=== PATIENT | female | born 1960 | race Hispanic/Latino ===

== ENCOUNTER 2020-11-20 09:28 | Inpatient (IN) | payer BC ==
[~2020-11-20] VITALS: Ht 157.5 cm; Wt 85.4 kg
[2020-11-20] MEDS ORDERED: DEXAMETHASONE SOD PHOS 10 MG/1 ML VIAL IV ONE (09:45)
[2020-11-20 10:12] LABS: BASOPHILS % 0.2 % (0.0-1.0); HEMATOCRIT 40.2 % (34.2-44.1); HEMOGLOBIN 13.7 g/dL (12.0-16.0); LYMPHOCYTES # (AUTO) 0.7 (1.0-3.2); LYMPHOCYTES % 8.9 % (18.0-39.1); MEAN CORPUSCULAR HGB CONC 34.1 g/dL (31-35); MEAN CORPUSCULAR VOLUME 88.2 fL (81-99); MONOCYTES # (AUTO) 0.1 (0.2-0.8); NEUTROPHILS # (AUTO) 7.3 (2.1-6.9); NEUTROPHILS % 88.3 % (38.7-80.0); PLATELET COUNT 183 x10e3/uL (140-360); RED BLOOD COUNT 4.56 x10e6/uL (3.6-5.1); RED CELL DISTRIBUTION WIDTH 12.7 % (11.7-14.4)
[2020-11-20 10:39] LABS: ALBUMIN 3.3 g/dL (3.5-5.0); ALBUMIN/GLOBULIN RATIO 0.9 (0.8-2.0); ANION GAP 18.5 mmol/L (8-16); CALCIUM 7.9 mg/dL (8.4-10.2); CREATININE, SERUM 0.76 mg/dL (0.57-1.11); POTASSIUM 3.5 mmol/L (3.5-5.1)
[2020-11-20 11:28] LABS: BAND NEUTROPHILS % (MANUAL) 4 %; LYMPHOCYTES % (MANUAL) 12 % (19-48); MONOCYTES % (MANUAL) 2 % (3.4-9.0); NEUTROPHILS % (MANUAL) 82 % (40-74)
[2020-11-20 11:29] LABS: ANISOCYTOSIS SLIGHT; HYPOCHROMASIA SLIG; PLATELET ESTIMATE ADEQUATE; PLATELET MORPHOLOGY COMMENT FEW LARGE; POLYCHROMASIA FEW; RBC MORPHOLOGY COMMENT NORMAL
[2020-11-20] MEDS ORDERED: SUCCINYLCHOLINE CHLORIDE 20 MG/ML 10ML VIAL ONE (12:11)
[2020-11-20] MEDS ORDERED: MIDAZOLAM HCL 2 MG/2 ML VIAL ONE (12:11)
[2020-11-20] MEDS ORDERED: ETOMIDATE 2 MG/ML 10 ML INJ IV ONE (12:11)
[2020-11-20] MEDS ORDERED: VECURONIUM BROMIDE FOR INJ 20 MG VIAL ONE (12:11)
[2020-11-20 13:35] VITALS: BP 118/78
[2020-11-20 13:58] VITALS: BP 118/78
[2020-11-20] MEDS ORDERED: LOSARTAN-HCTZ1 EAC2 PO (14:36)
[2020-11-20] MEDS ORDERED: AMLODIPINE BESY10 MG PO (14:36)
[2020-11-20] MEDS ORDERED: SODIUM CHLORIDE 0.9% 250ML 250 ML ONE (15:06)
[2020-11-20 15:09] VITALS: BP 125/76
[2020-11-20] MEDS ORDERED: REMDESIVIR 200MG 200 MG in SODIUM CHLORIDE 0.9% 100 ML 100 ML IV ONE (15:30)
[2020-11-20] MEDS: ASCORBIC ACID 500 MG TAB PO SCH (16:15)
[2020-11-20 20:00] VITALS: BP 135/81
[2020-11-20] MEDS: ENOXAPARIN SOD INJ 40 MG/0.4 ML SYR SC SCH (20:49)
[2020-11-20] MEDS ORDERED: ZOLPIDEM TARTRATE 5 MG TAB PO PRN (21:00)
[2020-11-21] VITALS (8 sets, daily range): BP systolic 106–130; BP diastolic 69–90
[2020-11-21] MEDS: ACETAMINOPHEN 325 MG TAB PO PRN ×3 (00:13→22:56)
[2020-11-21] MEDS: ZINC SULFATE 220 MG CAP PO SCH (08:08)
[2020-11-21] MEDS: ASCORBIC ACID 500 MG TAB PO SCH ×2 (08:08→16:03)
[2020-11-21] MEDS: ENOXAPARIN SOD INJ 40 MG/0.4 ML SYR SC SCH ×2 (08:08→21:00)
[2020-11-21] MEDS: AMLODIPINE BESYLATE 10 MG TAB PO SCH (09:00)
[2020-11-21] MEDS: DEXAMETHASONE SOD PHOS 10 MG/1 ML VIAL IV SCH (10:52)
[2020-11-21] MEDS: ONDANSETRON HCL INJ 2MG/ML 2ML 2 MG/ML VIAL IV PRN ×2 (11:55→22:56)
[2020-11-21] MEDS: REMDESIVIR 100MG 100 MG in SODIUM CHLORIDE 0.9% 100 ML 100 ML IV SCH (13:14)
[2020-11-21] MEDS ORDERED: CEFTRIAXONE 1 GM in SODIUM CHLORIDE 0.9% 50ML 50 ML IV SCH (14:00)
[2020-11-21] MEDS: CEFTRIAXONE 1 GM in SODIUM CHLORIDE 0.9% 50ML 50 ML IV SCH (16:03)
[2020-11-21] MEDS: GUAIFENESIN/CODEINE 10 ML CUP PO PRN (22:56)
[2020-11-22] VITALS (7 sets, daily range): BP systolic 139–168; BP diastolic 73–92
[2020-11-22 06:13] LABS: BASOPHILS % 0.2 % (0.0-1.0); HEMATOCRIT 40.1 % (34.2-44.1); HEMOGLOBIN 13.5 g/dL (12.0-16.0); LYMPHOCYTES # (AUTO) 1.8 (1.0-3.2); LYMPHOCYTES % 18.3 % (18.0-39.1); MEAN CORPUSCULAR HEMOGLOBIN 29.9 pg (28-32); MEAN CORPUSCULAR HGB CONC 33.7 g/dL (31-35); MEAN CORPUSCULAR VOLUME 88.7 fL (81-99); MONOCYTES # (AUTO) 0.7 (0.2-0.8); MONOCYTES % 7.3 % (4.4-11.3); NEUTROPHILS % 73.2 % (38.7-80.0); PLATELET COUNT 232 x10e3/uL (140-360); RED BLOOD COUNT 4.52 x10e6/uL (3.6-5.1)
[2020-11-22 06:39] LABS: ALBUMIN/GLOBULIN RATIO 0.8 (0.8-2.0); ANION GAP 14.7 mmol/L (8-16); CALCIUM 8.1 mg/dL (8.4-10.2); CREATININE, SERUM 0.65 mg/dL (0.57-1.11); POTASSIUM 3.7 mmol/L (3.5-5.1)
[2020-11-22] MEDS: DEXAMETHASONE SOD PHOS 10 MG/1 ML VIAL IV SCH (08:51)
[2020-11-22] MEDS: ASCORBIC ACID 500 MG TAB PO SCH ×2 (08:52→17:04)
[2020-11-22] MEDS: ENOXAPARIN SOD INJ 40 MG/0.4 ML SYR SC SCH ×2 (08:52→20:19)
[2020-11-22] MEDS: ZINC SULFATE 220 MG CAP PO SCH (08:52)
[2020-11-22] MEDS: AMLODIPINE BESYLATE 10 MG TAB PO SCH (08:52)
[2020-11-22] MEDS: ACETAMINOPHEN 325 MG TAB PO PRN (14:41)
[2020-11-22] MEDS: REMDESIVIR 100MG 100 MG in SODIUM CHLORIDE 0.9% 100 ML 100 ML IV SCH (15:00)
[2020-11-22] MEDS: CEFTRIAXONE 1 GM in SODIUM CHLORIDE 0.9% 50ML 50 ML IV SCH (17:04)
[2020-11-22] MEDS: ACETAMIN/BUTALBITAL/CAFFEINE TAB PO PRN (20:19)
[2020-11-22] MEDS: GUAIFENESIN/CODEINE 10 ML CUP PO PRN (20:20)
[2020-11-23] VITALS (15 sets, daily range): BP systolic 103–144; BP diastolic 71–95
[2020-11-23] MEDS: ACETAMIN/BUTALBITAL/CAFFEINE TAB PO PRN (05:42)
[2020-11-23] MEDS: DEXAMETHASONE SOD PHOS 10 MG/1 ML VIAL IV SCH (10:55)
[2020-11-23] MEDS: AMLODIPINE BESYLATE 10 MG TAB PO SCH (10:59)
[2020-11-23] MEDS: ZINC SULFATE 220 MG CAP PO SCH (10:59)
[2020-11-23] MEDS: ASCORBIC ACID 500 MG TAB PO SCH ×2 (10:59→16:35)
[2020-11-23] MEDS: ENOXAPARIN SOD INJ 40 MG/0.4 ML SYR SC SCH ×2 (11:00→21:30)
[2020-11-23] MEDS: REMDESIVIR 100MG 100 MG in SODIUM CHLORIDE 0.9% 100 ML 100 ML IV SCH (14:44)
[2020-11-23] MEDS: CEFTRIAXONE 1 GM in SODIUM CHLORIDE 0.9% 50ML 50 ML IV SCH (16:35)
[2020-11-24] VITALS (21 sets, daily range): BP systolic 122–157; BP diastolic 59–103
[2020-11-24 05:28] LABS: BASOPHILS % 0.2 % (0.0-1.0); EOSINOPHILS % 0.1 % (0.0-6.0); HEMATOCRIT 38.8 % (34.2-44.1); HEMOGLOBIN 13.4 g/dL (12.0-16.0); LYMPHOCYTES % 15.1 % (18.0-39.1); MEAN CORPUSCULAR HGB CONC 34.5 g/dL (31-35); MEAN CORPUSCULAR VOLUME 86.8 fL (81-99); MONOCYTES # (AUTO) 1.1 (0.2-0.8); MONOCYTES % 8.5 % (4.4-11.3); NEUTROPHILS # (AUTO) 9.9 (2.1-6.9); NEUTROPHILS % 73.9 % (38.7-80.0); PLATELET COUNT 251 x10e3/uL (140-360); RED BLOOD COUNT 4.47 x10e6/uL (3.6-5.1); RED CELL DISTRIBUTION WIDTH 12.4 % (11.7-14.4)
[2020-11-24 05:51] LABS: ALBUMIN/GLOBULIN RATIO 0.8 (0.8-2.0); ANION GAP 15.4 mmol/L (8-16); CALCIUM 8.2 mg/dL (8.4-10.2); CREATININE, SERUM 0.59 mg/dL (0.57-1.11); POTASSIUM 3.4 mmol/L (3.5-5.1)
[2020-11-24] MEDS: ONDANSETRON HCL INJ 2MG/ML 2ML 2 MG/ML VIAL IV PRN (07:36)
[2020-11-24] MEDS: ENOXAPARIN SOD INJ 40 MG/0.4 ML SYR SC SCH ×2 (08:05→20:00)
[2020-11-24] MEDS: DEXAMETHASONE SOD PHOS 10 MG/1 ML VIAL IV SCH (08:05)
[2020-11-24] MEDS: ASCORBIC ACID 500 MG TAB PO SCH ×2 (08:13→18:53)
[2020-11-24] MEDS: BARICITINIB 2 MG TABLET PO SCH (08:13)
[2020-11-24] MEDS: AMLODIPINE BESYLATE 10 MG TAB PO SCH (08:13)
[2020-11-24] MEDS: ZINC SULFATE 220 MG CAP PO SCH (08:13)
[2020-11-24] MEDS: OMEPRAZOLE 20 MG CAP PO SCH (08:13)
[2020-11-24] MEDS ORDERED: POTASSIUM CHLORIDE 20 MEQ TAB CR PO ONE (11:00)
[2020-11-24] MEDS: REMDESIVIR 100MG 100 MG in SODIUM CHLORIDE 0.9% 100 ML 100 ML IV SCH (15:11)
[2020-11-25] VITALS (23 sets, daily range): BP systolic 104–152; BP diastolic 65–98
[2020-11-25 05:42] LABS: BASOPHILS % 0.2 % (0.0-1.0); HEMATOCRIT 37.4 % (34.2-44.1); HEMOGLOBIN 12.9 g/dL (12.0-16.0); LYMPHOCYTES # (AUTO) 2.4 (1.0-3.2); LYMPHOCYTES % 14.2 % (18.0-39.1); MEAN CORPUSCULAR HEMOGLOBIN 30.1 pg (28-32); MEAN CORPUSCULAR HGB CONC 34.5 g/dL (31-35); MEAN CORPUSCULAR VOLUME 87.2 fL (81-99); MONOCYTES # (AUTO) 1.1 (0.2-0.8); MONOCYTES % 6.5 % (4.4-11.3); NEUTROPHILS % 76.7 % (38.7-80.0); PLATELET COUNT 272 x10e3/uL (140-360); RED BLOOD COUNT 4.29 x10e6/uL (3.6-5.1); RED CELL DISTRIBUTION WIDTH 12.3 % (11.7-14.4)
[2020-11-25 07:13] LABS: ALBUMIN 3.2 g/dL (3.5-5.0); ANION GAP 14.8 mmol/L (8-16); CREATININE, SERUM 0.6 mg/dL (0.57-1.11); POTASSIUM 3.8 mmol/L (3.5-5.1)
[2020-11-25] MEDS: OMEPRAZOLE 20 MG CAP PO SCH (07:30)
[2020-11-25] MEDS: DEXAMETHASONE SOD PHOS 10 MG/1 ML VIAL IV SCH (09:00)
[2020-11-25] MEDS: ENOXAPARIN SOD INJ 40 MG/0.4 ML SYR SC SCH ×2 (09:00→21:00)
[2020-11-25] MEDS: ASCORBIC ACID 500 MG TAB PO SCH ×2 (09:00→16:30)
[2020-11-25] MEDS: ZINC SULFATE 220 MG CAP PO SCH (09:00)
[2020-11-25] MEDS: BARICITINIB 2 MG TABLET PO SCH (09:00)
[2020-11-25] MEDS: AMLODIPINE BESYLATE 10 MG TAB PO SCH (09:42)
[2020-11-25] MEDS: ACETAMINOPHEN 325 MG TAB PO PRN (12:15)
[2020-11-25] MEDS: GUAIFENESIN/CODEINE 10 ML CUP PO PRN (12:15)
[2020-11-25] MEDS ORDERED: GUAIFENESIN/CODEINE 5 ML LIQD PO PRN (18:15)
[2020-11-26] VITALS (24 sets, daily range): BP systolic 120–149; BP diastolic 70–111
[2020-11-26] MEDS: ACETAMIN/BUTALBITAL/CAFFEINE TAB PO PRN (00:29)
[2020-11-26 05:11] LABS: BASOPHILS # (AUTO) 0.1 (0.0-0.1); BASOPHILS % 0.2 % (0.0-1.0); EOSINOPHILS # (AUTO) 0.1 (0.0-0.4); EOSINOPHILS % 0.2 % (0.0-6.0); HEMATOCRIT 38.6 % (34.2-44.1); HEMOGLOBIN 13.4 g/dL (12.0-16.0); LYMPHOCYTES # (AUTO) 2.1 (1.0-3.2); LYMPHOCYTES % 9.7 % (18.0-39.1); MEAN CORPUSCULAR HEMOGLOBIN 29.9 pg (28-32); MEAN CORPUSCULAR HGB CONC 34.7 g/dL (31-35); MEAN CORPUSCULAR VOLUME 86.2 fL (81-99); MONOCYTES # (AUTO) 0.9 (0.2-0.8); MONOCYTES % 4.2 % (4.4-11.3); NEUTROPHILS # (AUTO) 17.6 (2.1-6.9); NEUTROPHILS % 83.3 % (38.7-80.0); PLATELET COUNT 284 x10e3/uL (140-360); RED BLOOD COUNT 4.48 x10e6/uL (3.6-5.1); RED CELL DISTRIBUTION WIDTH 12.2 % (11.7-14.4)
[2020-11-26 05:30] LABS: ALBUMIN 3.3 g/dL (3.5-5.0); ALBUMIN/GLOBULIN RATIO 1.1 (0.8-2.0); ANION GAP 12.4 mmol/L (8-16); CALCIUM 8.3 mg/dL (8.4-10.2); CREATININE, SERUM 0.58 mg/dL (0.57-1.11); POTASSIUM 3.4 mmol/L (3.5-5.1)
[2020-11-26] MEDS: OMEPRAZOLE 20 MG CAP PO SCH (08:36)
[2020-11-26] MEDS: BARICITINIB 2 MG TABLET PO SCH (08:37)
[2020-11-26] MEDS: AMLODIPINE BESYLATE 10 MG TAB PO SCH (08:37)
[2020-11-26] MEDS: ENOXAPARIN SOD INJ 40 MG/0.4 ML SYR SC SCH ×2 (08:37→20:41)
[2020-11-26] MEDS: DEXAMETHASONE SOD PHOS 10 MG/1 ML VIAL IV SCH (08:37)
[2020-11-26] MEDS: ASCORBIC ACID 500 MG TAB PO SCH ×2 (08:37→16:29)
[2020-11-26] MEDS: ZINC SULFATE 220 MG CAP PO SCH (08:37)
[2020-11-26] MEDS: ACETAMINOPHEN 325 MG TAB PO PRN (11:50)
[2020-11-26 11:53] LABS: CLARITY,URINE CLEAR (CLEAR); COLOR,URINE YELLOW (YELLOW); LEUKOCYTE ESTERASE ,URINE NEGATIVE (NEGATIVE); NITRITE,URINE NEGATIVE (NEGATIVE)
[2020-11-26 11:54] LABS: KETONES,URINE NEGATIVE (NEGATIVE); PROTEIN,URINE DIPSTICK 1+ (NEGATIVE)
[2020-11-26 12:05] LABS: BACTERIA,URINE RARE /HPF; EPITHELIAL CELLS,URINE FEW /LPF; WBC,URINE (MAN) 0-5 /HPF (0-5)
[2020-11-27] VITALS (24 sets, daily range): BP systolic 103–139; BP diastolic 51–94
[2020-11-27 05:51] LABS: BASOPHILS # (AUTO) 0.1 (0.0-0.1); BASOPHILS % 0.2 % (0.0-1.0); EOSINOPHILS # (AUTO) 0.2 (0.0-0.4); HEMOGLOBIN 13.3 g/dL (12.0-16.0); LYMPHOCYTES # (AUTO) 1.4 (1.0-3.2); LYMPHOCYTES % 6.3 % (18.0-39.1); MEAN CORPUSCULAR HEMOGLOBIN 30.1 pg (28-32); MONOCYTES # (AUTO) 0.7 (0.2-0.8); MONOCYTES % 3.3 % (4.4-11.3); NEUTROPHILS % 86.6 % (38.7-80.0); PLATELET COUNT 302 x10e3/uL (140-360); RED BLOOD COUNT 4.42 x10e6/uL (3.6-5.1); RED CELL DISTRIBUTION WIDTH 12.4 % (11.7-14.4)
[2020-11-27 06:42] LABS: ALBUMIN 3.1 g/dL (3.5-5.0); ANION GAP 16.3 mmol/L (8-16); CALCIUM 8.2 mg/dL (8.4-10.2); CREATININE, SERUM 0.55 mg/dL (0.57-1.11); POTASSIUM 3.3 mmol/L (3.5-5.1)
[2020-11-27] MEDS: OMEPRAZOLE 20 MG CAP PO SCH (08:05)
[2020-11-27] MEDS: DEXAMETHASONE SOD PHOS 10 MG/1 ML VIAL IV SCH (08:05)
[2020-11-27] MEDS: AMLODIPINE BESYLATE 10 MG TAB PO SCH (08:06)
[2020-11-27] MEDS: ENOXAPARIN SOD INJ 40 MG/0.4 ML SYR SC SCH ×2 (08:06→20:41)
[2020-11-27] MEDS: ASCORBIC ACID 500 MG TAB PO SCH ×2 (08:06→16:45)
[2020-11-27] MEDS: ZINC SULFATE 220 MG CAP PO SCH (08:06)
[2020-11-27] MEDS: BARICITINIB 2 MG TABLET PO SCH (08:06)
[2020-11-27] MEDS: ACETAMINOPHEN 325 MG TAB PO PRN (08:07)
[2020-11-27] MEDS: LIDOCAINE 4% PATCH TP SCH (10:45)
[2020-11-27] MEDS: PIPERACILLIN/TAZOBACTAM 3.375 GM in SODIUM CHLORIDE 0.9% 50ML 50 ML IV SCH ×2 (11:06→17:54)
[2020-11-28] VITALS (24 sets, daily range): BP systolic 109–155; BP diastolic 59–100
[2020-11-28] MEDS: PIPERACILLIN/TAZOBACTAM 3.375 GM in SODIUM CHLORIDE 0.9% 50ML 50 ML IV SCH ×5 (00:41→23:55)
[2020-11-28 05:53] LABS: BASOPHILS # (AUTO) 0.1 (0.0-0.1); BASOPHILS % 0.2 % (0.0-1.0); EOSINOPHILS # (AUTO) 0.3 (0.0-0.4); EOSINOPHILS % 1.2 % (0.0-6.0); HEMATOCRIT 36.6 % (34.2-44.1); HEMOGLOBIN 12.8 g/dL (12.0-16.0); LYMPHOCYTES # (AUTO) 1.2 (1.0-3.2); LYMPHOCYTES % 5.3 % (18.0-39.1); MEAN CORPUSCULAR HEMOGLOBIN 30.3 pg (28-32); MEAN CORPUSCULAR VOLUME 86.7 fL (81-99); MONOCYTES # (AUTO) 0.7 (0.2-0.8); MONOCYTES % 3.2 % (4.4-11.3); NEUTROPHILS # (AUTO) 20.5 (2.1-6.9); NEUTROPHILS % 88.4 % (38.7-80.0); PLATELET COUNT 221 x10e3/uL (140-360); RED BLOOD COUNT 4.22 x10e6/uL (3.6-5.1); RED CELL DISTRIBUTION WIDTH 12.6 % (11.7-14.4)
[2020-11-28] MEDS: ACETAMINOPHEN 325 MG TAB PO PRN (06:24)
[2020-11-28 06:38] LABS: ANION GAP 15.5 mmol/L (8-16); CALCIUM 8.1 mg/dL (8.4-10.2); CREATININE, SERUM 0.56 mg/dL (0.57-1.11); POTASSIUM 3.5 mmol/L (3.5-5.1)
[2020-11-28] MEDS: ZINC SULFATE 220 MG CAP PO SCH (08:30)
[2020-11-28] MEDS: BARICITINIB 2 MG TABLET PO SCH (08:30)
[2020-11-28] MEDS: DEXAMETHASONE SOD PHOS 10 MG/1 ML VIAL IV SCH (08:30)
[2020-11-28] MEDS: LIDOCAINE 4% PATCH TP SCH (08:30)
[2020-11-28] MEDS: ASCORBIC ACID 500 MG TAB PO SCH ×2 (08:30→17:06)
[2020-11-28] MEDS: AMLODIPINE BESYLATE 10 MG TAB PO SCH (08:30)
[2020-11-28] MEDS: ENOXAPARIN SOD INJ 40 MG/0.4 ML SYR SC SCH ×2 (08:30→21:16)
[2020-11-28] MEDS: OMEPRAZOLE 20 MG CAP PO SCH (08:30)
[2020-11-28] MEDS ORDERED: ALTEPLASE RECOMBINANT 2 MG/2 ML VIAL IV PRN (13:30)
[2020-11-28] MEDS: ACETAMIN/BUTALBITAL/CAFFEINE TAB PO PRN (23:56)
[2020-11-29] VITALS (34 sets, daily range): BP systolic 72–162; BP diastolic 43–87
[2020-11-29] MEDS: DEXMEDETOMIDINE 400MCG/NS100ML 100 ML IV PRN ×2 (00:20→02:50)
[2020-11-29] MEDS ORDERED: DEXMEDETOMIDINE HCL 4 ML ONE (02:27)
[2020-11-29] MEDS ORDERED: SODIUM CHLORIDE 0.9% 100 ML ONE (02:30)
[2020-11-29] MEDS ORDERED: MIDAZOLAM HCL 5MG/ML 10ML VIAL 100 ML IV ONE (05:39)
[2020-11-29] MEDS ORDERED: FENTANYL 2000MCG/NS 250 250 ML ONE (05:39)
[2020-11-29] MEDS ORDERED: ROCURONIUM 1250MG/NS 250 250 ML ONE (05:40)
[2020-11-29] MEDS: ROCURONIUM BROMIDE 1,250 MG in SODIUM CHLORIDE 0.9% 250ML 125 ML IV SCH (05:45)
[2020-11-29] MEDS ORDERED: LACTATED RINGER'S 500 ML INJ ONE (06:30)
[2020-11-29 06:39] LABS: BASOPHILS # (AUTO) 0.1 (0.0-0.1); BASOPHILS % 0.3 % (0.0-1.0); EOSINOPHILS # (AUTO) 0.3 (0.0-0.4); EOSINOPHILS % 1.4 % (0.0-6.0); HEMOGLOBIN 11.2 g/dL (12.0-16.0); LYMPHOCYTES # (AUTO) 0.7 (1.0-3.2); LYMPHOCYTES % 3.4 % (18.0-39.1); MEAN CORPUSCULAR HEMOGLOBIN 29.8 pg (28-32); MEAN CORPUSCULAR HGB CONC 33.9 g/dL (31-35); MEAN CORPUSCULAR VOLUME 87.8 fL (81-99); MONOCYTES # (AUTO) 0.4 (0.2-0.8); MONOCYTES % 2.2 % (4.4-11.3); NEUTROPHILS # (AUTO) 17.9 (2.1-6.9); NEUTROPHILS % 91.3 % (38.7-80.0); PLATELET COUNT 171 x10e3/uL (140-360); RED BLOOD COUNT 3.76 x10e6/uL (3.6-5.1); RED CELL DISTRIBUTION WIDTH 12.6 % (11.7-14.4)
[2020-11-29] MEDS: PIPERACILLIN/TAZOBACTAM 3.375 GM in SODIUM CHLORIDE 0.9% 50ML 50 ML IV SCH ×3 (06:55→17:22)
[2020-11-29 06:57] LABS: ALBUMIN 2.8 g/dL (3.5-5.0); ANION GAP 14.2 mmol/L (8-16); CALCIUM 7.9 mg/dL (8.4-10.2); CREATININE, SERUM 0.66 mg/dL (0.57-1.11); POTASSIUM 4.2 mmol/L (3.5-5.1)
[2020-11-29] MEDS: NOREPINEPHRINE 8 MG/D5W 250 ML 250 ML IV SCH ×2 (07:30→23:10)
[2020-11-29 08:18] LABS: ABG HCO3 26 mmol/L (22-26); ABG PCO2 38 mmHg (35-45); ABG PH 7.44 (7.35-7.45); ABG PO2 56 mmHg (80-105); ABG TCO2 27
[2020-11-29] MEDS: ENOXAPARIN SOD INJ 40 MG/0.4 ML SYR SC SCH (09:00)
[2020-11-29] MEDS: ZINC SULFATE 220 MG CAP PO SCH (10:00)
[2020-11-29] MEDS: OMEPRAZOLE 20 MG CAP PO SCH (10:00)
[2020-11-29] MEDS: ASCORBIC ACID 500 MG TAB PO SCH ×2 (10:00→17:22)
[2020-11-29] MEDS: LIDOCAINE 4% PATCH TP SCH (10:00)
[2020-11-29] MEDS: BARICITINIB 2 MG TABLET PO SCH (10:00)
[2020-11-29] MEDS: DEXAMETHASONE SOD PHOS 10 MG/1 ML VIAL IV SCH (10:00)
[2020-11-29] MEDS ORDERED: SODIUM CHLORIDE 0.9% 1000ML 1,000 ML ONE (10:48)
[2020-11-29] MEDS: FENTANYL 2000MCG/NS 250 250 ML IV SCH (13:56)
[2020-11-29] MEDS: MIDAZOLAM HCL 5MG/ML 10ML VIAL 100 ML IV PRN ×2 (13:57→22:20)
[2020-11-29] MEDS: ENOXAPARIN INJ 80 MG/0.8 ML SYR SC SCH (21:00)
[2020-11-29] MEDS ORDERED: ENOXAPARIN INJ 80 MG/0.8 ML SYR SC SCH (21:00)
[2020-11-30] VITALS (31 sets, daily range): BP systolic 86–130; BP diastolic 49–78
[2020-11-30] MEDS: FENTANYL 2000MCG/NS 250 250 ML IV SCH ×2 (00:10→09:38)
[2020-11-30] MEDS: PIPERACILLIN/TAZOBACTAM 3.375 GM in SODIUM CHLORIDE 0.9% 50ML 50 ML IV SCH ×3 (06:06)
[2020-11-30] MEDS: MIDAZOLAM HCL 5MG/ML 10ML VIAL 100 ML IV PRN ×2 (06:34→13:02)
[2020-11-30 07:33] LABS: BASOPHILS # (AUTO) 0.1 (0.0-0.1); BASOPHILS % 0.3 % (0.0-1.0); EOSINOPHILS # (AUTO) 0.1 (0.0-0.4); EOSINOPHILS % 0.3 % (0.0-6.0); HEMATOCRIT 34.3 % (34.2-44.1); HEMOGLOBIN 11.4 g/dL (12.0-16.0); LYMPHOCYTES # (AUTO) 1.2 (1.0-3.2); LYMPHOCYTES % 5.7 % (18.0-39.1); MEAN CORPUSCULAR HEMOGLOBIN 29.7 pg (28-32); MEAN CORPUSCULAR HGB CONC 33.2 g/dL (31-35); MEAN CORPUSCULAR VOLUME 89.3 fL (81-99); MONOCYTES # (AUTO) 0.6 (0.2-0.8); MONOCYTES % 2.6 % (4.4-11.3); NEUTROPHILS # (AUTO) 19.7 (2.1-6.9); NEUTROPHILS % 89.6 % (38.7-80.0); PLATELET COUNT 246 x10e3/uL (140-360); RED BLOOD COUNT 3.84 x10e6/uL (3.6-5.1); RED CELL DISTRIBUTION WIDTH 12.7 % (11.7-14.4)
[2020-11-30 08:07] LABS: ALBUMIN 2.8 g/dL (3.5-5.0); ALBUMIN/GLOBULIN RATIO 0.9 (0.8-2.0); ANION GAP 16.6 mmol/L (8-16); CALCIUM 8.5 mg/dL (8.4-10.2); CREATININE, SERUM 0.6 mg/dL (0.57-1.11); POTASSIUM 3.6 mmol/L (3.5-5.1)
[2020-11-30] MEDS: ASCORBIC ACID 500 MG TAB PO SCH ×2 (08:34→16:34)
[2020-11-30] MEDS: ENOXAPARIN INJ 80 MG/0.8 ML SYR SC SCH ×2 (08:34→22:12)
[2020-11-30] MEDS: OMEPRAZOLE 20 MG CAP PO SCH (08:34)
[2020-11-30] MEDS: DEXAMETHASONE SOD PHOS 10 MG/1 ML VIAL IV SCH (08:34)
[2020-11-30] MEDS: ZINC SULFATE 220 MG CAP PO SCH (08:34)
[2020-11-30] MEDS: LIDOCAINE 4% PATCH TP SCH (08:35)
[2020-11-30 08:46] LABS: ABG HCO3 26 mmol/L (22-26); ABG PCO2 43 mmHg (35-45); ABG PH 7.39 (7.35-7.45); ABG PO2 65 mmHg (80-105); ABG TCO2 27
[2020-11-30] MEDS: BARICITINIB 2 MG TABLET PO SCH (09:00)
[2020-11-30] MEDS: Vancomycin IV 1 GM in SODIUM CHLORIDE 0.9% 250ML 250 ML IV SCH (13:00)
[2020-11-30] MEDS: MEROPENEM 500 MG in SODIUM CHLORIDE 0.9% 50ML 50 ML IV SCH ×2 (14:09→22:12)
[2020-11-30] MEDS: ROCURONIUM BROMIDE 1,250 MG in SODIUM CHLORIDE 0.9% 250ML 125 ML IV SCH (14:10)
[2020-11-30] MEDS ORDERED: SODIUM CHLORIDE 0.9% 250ML 250 ML ONE (14:12)
[2020-11-30] MEDS ORDERED: SODIUM CHLORIDE 0.9% 50ML 50 ML ONE (22:46)
[2020-12-01] VITALS (24 sets, daily range): BP systolic 80–131; BP diastolic 49–75
[2020-12-01] MEDS: Vancomycin IV 1 GM in SODIUM CHLORIDE 0.9% 250ML 250 ML IV SCH ×2 (00:47→11:38)
[2020-12-01 05:53] LABS: BASOPHILS % 0.2 % (0.0-1.0); EOSINOPHILS # (AUTO) 0.3 (0.0-0.4); EOSINOPHILS % 1.6 % (0.0-6.0); HEMATOCRIT 29.6 % (34.2-44.1); HEMOGLOBIN 9.9 g/dL (12.0-16.0); LYMPHOCYTES # (AUTO) 1.6 (1.0-3.2); LYMPHOCYTES % 10.4 % (18.0-39.1); MEAN CORPUSCULAR HGB CONC 33.4 g/dL (31-35); MEAN CORPUSCULAR VOLUME 89.7 fL (81-99); MONOCYTES # (AUTO) 0.6 (0.2-0.8); MONOCYTES % 3.6 % (4.4-11.3); NEUTROPHILS # (AUTO) 13.1 (2.1-6.9); NEUTROPHILS % 83.1 % (38.7-80.0); PLATELET COUNT 259 x10e3/uL (140-360); RED CELL DISTRIBUTION WIDTH 12.9 % (11.7-14.4)
[2020-12-01 06:20] LABS: ALBUMIN 2.5 g/dL (3.5-5.0); ANION GAP 10.9 mmol/L (8-16); CALCIUM 7.9 mg/dL (8.4-10.2); CREATININE, SERUM 0.5 mg/dL (0.57-1.11); POTASSIUM 3.9 mmol/L (3.5-5.1)
[2020-12-01] MEDS: OMEPRAZOLE 20 MG CAP PO SCH (07:34)
[2020-12-01] MEDS: MEROPENEM 500 MG in SODIUM CHLORIDE 0.9% 50ML 50 ML IV SCH ×2 (07:34→14:07)
[2020-12-01] MEDS: ZINC SULFATE 220 MG CAP PO SCH (08:02)
[2020-12-01] MEDS: ASCORBIC ACID 500 MG TAB PO SCH ×2 (08:02→17:04)
[2020-12-01] MEDS: BARICITINIB 2 MG TABLET PO SCH (08:02)
[2020-12-01] MEDS: LIDOCAINE 4% PATCH TP SCH (08:02)
[2020-12-01] MEDS: ENOXAPARIN INJ 80 MG/0.8 ML SYR SC SCH ×2 (08:02→21:07)
[2020-12-01 12:50] LABS: ABG HCO3 26 mmol/L (22-26); ABG PCO2 39 mmHg (35-45); ABG PH 7.42 (7.35-7.45); ABG PO2 59 mmHg (80-105); ABG TCO2 27
[2020-12-01] MEDS: MIDAZOLAM HCL 5MG/ML 10ML VIAL 100 ML IV PRN ×2 (12:54→17:05)
[2020-12-01] MEDS: FENTANYL 2000MCG/NS 250 250 ML IV SCH (16:17)
[2020-12-02] VITALS (25 sets, daily range): BP systolic 90–137; BP diastolic 51–71
[2020-12-02] MEDS: Vancomycin IV 1 GM in SODIUM CHLORIDE 0.9% 250ML 250 ML IV SCH ×2 (00:01→11:19)
[2020-12-02] MEDS: MEROPENEM 500 MG in SODIUM CHLORIDE 0.9% 50ML 50 ML IV SCH ×4 (00:01→22:25)
[2020-12-02] MEDS ORDERED: SODIUM CHLORIDE 0.9% 250ML 250 ML ONE (00:22)
[2020-12-02] MEDS: MIDAZOLAM HCL 5MG/ML 10ML VIAL 100 ML IV PRN ×4 (03:15→18:49)
[2020-12-02] MEDS ORDERED: ROCURONIUM 1250MG/NS 250 250 ML ONE (05:30)
[2020-12-02] MEDS: ROCURONIUM BROMIDE 1,250 MG in SODIUM CHLORIDE 0.9% 250ML 125 ML IV SCH ×2 (06:03→06:04)
[2020-12-02] MEDS: NOREPINEPHRINE 8 MG/D5W 250 ML 250 ML IV SCH ×2 (06:04→06:38)
[2020-12-02 06:45] LABS: BASOPHILS # (AUTO) 0.1 (0.0-0.1); BASOPHILS % 0.4 % (0.0-1.0); EOSINOPHILS # (AUTO) 0.4 (0.0-0.4); EOSINOPHILS % 3.1 % (0.0-6.0); HEMATOCRIT 29.3 % (34.2-44.1); HEMOGLOBIN 9.5 g/dL (12.0-16.0); LYMPHOCYTES # (AUTO) 2.3 (1.0-3.2); LYMPHOCYTES % 16.1 % (18.0-39.1); MEAN CORPUSCULAR HEMOGLOBIN 30.4 pg (28-32); MEAN CORPUSCULAR HGB CONC 32.4 g/dL (31-35); MEAN CORPUSCULAR VOLUME 93.6 fL (81-99); MONOCYTES # (AUTO) 0.6 (0.2-0.8); MONOCYTES % 3.9 % (4.4-11.3); NEUTROPHILS # (AUTO) 10.7 (2.1-6.9); NEUTROPHILS % 75.2 % (38.7-80.0); PLATELET COUNT 280 x10e3/uL (140-360); RED BLOOD COUNT 3.13 x10e6/uL (3.6-5.1); RED CELL DISTRIBUTION WIDTH 13.6 % (11.7-14.4)
[2020-12-02 07:05] LABS: ALBUMIN 2.3 g/dL (3.5-5.0); ALBUMIN/GLOBULIN RATIO 0.9 (0.8-2.0); ANION GAP 9.6 mmol/L (8-16); CALCIUM 7.3 mg/dL (8.4-10.2); CREATININE, SERUM 0.54 mg/dL (0.57-1.11); POTASSIUM 3.6 mmol/L (3.5-5.1)
[2020-12-02] MEDS: BARICITINIB 2 MG TABLET PO SCH (08:07)
[2020-12-02] MEDS: OMEPRAZOLE 20 MG CAP PO SCH (08:07)
[2020-12-02] MEDS: ZINC SULFATE 220 MG CAP PO SCH (08:07)
[2020-12-02] MEDS: ASCORBIC ACID 500 MG TAB PO SCH ×2 (08:07→16:11)
[2020-12-02] MEDS: ENOXAPARIN INJ 80 MG/0.8 ML SYR SC SCH ×2 (08:08→22:25)
[2020-12-02] MEDS: LIDOCAINE 4% PATCH TP SCH (08:08)
[2020-12-02 08:39] LABS: ABG HCO3 24 mmol/L (22-26); ABG PCO2 38 mmHg (35-45); ABG PH 7.42 (7.35-7.45); ABG PO2 63 mmHg (80-105); ABG TCO2 26
[2020-12-02] MEDS: FUROSEMIDE INJ 10 MG/ML 4 ML VIAL IV SCH ×2 (11:19→22:25)
[2020-12-02] MEDS: ALBUMIN 25% 25GM 100ML 0.25 GM/ML BTL IV SCH ×2 (11:19→20:04)
[2020-12-02] MEDS: FENTANYL 2000MCG/NS 250 250 ML IV SCH (12:21)
[2020-12-02] MEDS: ACETAMINOPHEN 325 MG TAB PO PRN (22:26)
[2020-12-03] VITALS (25 sets, daily range): BP systolic 98–152; BP diastolic 42–89
[2020-12-03] MEDS: Vancomycin IV 1 GM in SODIUM CHLORIDE 0.9% 250ML 250 ML IV SCH ×2 (01:04→11:30)
[2020-12-03] MEDS ORDERED: ALBUMIN 25% 25GM 100ML 100 ML ONE (05:33)
[2020-12-03] MEDS: ROCURONIUM BROMIDE 1,250 MG in SODIUM CHLORIDE 0.9% 250ML 125 ML IV SCH (05:34)
[2020-12-03] MEDS: ALBUMIN 25% 25GM 100ML 0.25 GM/ML BTL IV SCH (05:34)
[2020-12-03] MEDS: ACETAMINOPHEN 325 MG TAB PO PRN ×3 (05:34→21:41)
[2020-12-03] MEDS: NOREPINEPHRINE 8 MG/D5W 250 ML 250 ML IV SCH (06:30)
[2020-12-03] MEDS: MEROPENEM 500 MG in SODIUM CHLORIDE 0.9% 50ML 50 ML IV SCH ×3 (06:51→21:41)
[2020-12-03 07:32] LABS: ABG HCO3 30 mmol/L (22-26); ABG PCO2 48 mmHg (35-45); ABG PH 7.41 (7.35-7.45); ABG PO2 66 mmHg (80-105); ABG TCO2 31
[2020-12-03] MEDS: BARICITINIB 2 MG TABLET PO SCH (08:16)
[2020-12-03] MEDS: ZINC SULFATE 220 MG CAP PO SCH (08:16)
[2020-12-03] MEDS: ASCORBIC ACID 500 MG TAB PO SCH ×2 (08:16→16:06)
[2020-12-03] MEDS: LIDOCAINE 4% PATCH TP SCH (08:16)
[2020-12-03] MEDS: OMEPRAZOLE 20 MG CAP PO SCH (08:16)
[2020-12-03] MEDS: ENOXAPARIN INJ 80 MG/0.8 ML SYR SC SCH ×2 (08:16→21:40)
[2020-12-03 08:49] LABS: ALBUMIN 2.8 g/dL (3.5-5.0); ALBUMIN/GLOBULIN RATIO 0.9 (0.8-2.0); ANION GAP 12.6 mmol/L (8-16); CREATININE, SERUM 0.51 mg/dL (0.57-1.11); POTASSIUM 3.6 mmol/L (3.5-5.1)
[2020-12-03 09:49] LABS: BASOPHILS # (AUTO) 0.1 (0.0-0.1); BASOPHILS % 0.4 % (0.0-1.0); EOSINOPHILS # (AUTO) 0.3 (0.0-0.4); EOSINOPHILS % 2.2 % (0.0-6.0); HEMATOCRIT 30.7 % (34.2-44.1); HEMOGLOBIN 9.5 g/dL (12.0-16.0); LYMPHOCYTES # (AUTO) 1.8 (1.0-3.2); LYMPHOCYTES % 15.2 % (18.0-39.1); MEAN CORPUSCULAR HEMOGLOBIN 29.7 pg (28-32); MEAN CORPUSCULAR HGB CONC 30.9 g/dL (31-35); MEAN CORPUSCULAR VOLUME 95.9 fL (81-99); MONOCYTES # (AUTO) 0.5 (0.2-0.8); MONOCYTES % 3.9 % (4.4-11.3); NEUTROPHILS # (AUTO) 9.2 (2.1-6.9); PLATELET COUNT 312 x10e3/uL (140-360); RED CELL DISTRIBUTION WIDTH 13.8 % (11.7-14.4)
[2020-12-03] MEDS: FENTANYL 2000MCG/NS 250 250 ML IV SCH ×2 (10:17→15:26)
[2020-12-03] MEDS: MIDAZOLAM HCL 5MG/ML 10ML VIAL 100 ML IV PRN ×2 (10:21→15:27)
[2020-12-03] MEDS ORDERED: Vancomycin IV 1 GM VIAL ONE (11:31)
[2020-12-03] MEDS: FLUCONAZOLE 400MG/200ML BAG 200 ML IV SCH (13:00)
[2020-12-03] MEDS: FUROSEMIDE INJ 10 MG/ML 4 ML VIAL IV SCH ×2 (15:16→21:40)
[2020-12-03] MEDS ORDERED: SODIUM CHLORIDE 0.9% 250ML 250 ML ONE (21:17)
[2020-12-03] MEDS ORDERED: ROCURONIUM 1250MG/NS 250 250 ML ONE (21:48)
[2020-12-04] VITALS (26 sets, daily range): BP systolic 87–129; BP diastolic 45–83
[2020-12-04] MEDS: Vancomycin IV 1 GM in SODIUM CHLORIDE 0.9% 250ML 250 ML IV SCH ×2 (02:00→11:53)
[2020-12-04] MEDS: ROCURONIUM BROMIDE 1,250 MG in SODIUM CHLORIDE 0.9% 250ML 125 ML IV SCH (06:09)
[2020-12-04] MEDS: MEROPENEM 500 MG in SODIUM CHLORIDE 0.9% 50ML 50 ML IV SCH ×3 (06:10→21:25)
[2020-12-04 06:51] LABS: BASOPHILS # (AUTO) 0.1 (0.0-0.1); BASOPHILS % 0.4 % (0.0-1.0); EOSINOPHILS # (AUTO) 0.2 (0.0-0.4); EOSINOPHILS % 1.5 % (0.0-6.0); HEMATOCRIT 28.2 % (34.2-44.1); HEMOGLOBIN 9.2 g/dL (12.0-16.0); LYMPHOCYTES # (AUTO) 1.4 (1.0-3.2); LYMPHOCYTES % 9.9 % (18.0-39.1); MEAN CORPUSCULAR HEMOGLOBIN 30.6 pg (28-32); MEAN CORPUSCULAR HGB CONC 32.6 g/dL (31-35); MEAN CORPUSCULAR VOLUME 93.7 fL (81-99); MONOCYTES # (AUTO) 0.4 (0.2-0.8); MONOCYTES % 2.8 % (4.4-11.3); NEUTROPHILS # (AUTO) 11.8 (2.1-6.9); NEUTROPHILS % 84.3 % (38.7-80.0); PLATELET COUNT 348 x10e3/uL (140-360); RED BLOOD COUNT 3.01 x10e6/uL (3.6-5.1); RED CELL DISTRIBUTION WIDTH 13.2 % (11.7-14.4)
[2020-12-04] MEDS: LIDOCAINE 4% PATCH TP SCH (07:12)
[2020-12-04 07:26] LABS: ALBUMIN 2.6 g/dL (3.5-5.0); ALBUMIN/GLOBULIN RATIO 0.9 (0.8-2.0); ANION GAP 12.6 mmol/L (8-16); CALCIUM 8.3 mg/dL (8.4-10.2); CREATININE, SERUM 0.44 mg/dL (0.57-1.11); POTASSIUM 3.6 mmol/L (3.5-5.1)
[2020-12-04 08:15] LABS: ABG PH 7.35 (7.35-7.45)
[2020-12-04 08:16] LABS: ABG HCO3 36 mmol/L (22-26); ABG PCO2 66 mmHg (35-45); ABG PO2 88 mmHg (80-105); ABG TCO2 38
[2020-12-04] MEDS: BARICITINIB 2 MG TABLET PO SCH (08:36)
[2020-12-04] MEDS: OMEPRAZOLE 20 MG CAP PO SCH (08:36)
[2020-12-04] MEDS: ASCORBIC ACID 500 MG TAB PO SCH ×2 (08:37→16:15)
[2020-12-04] MEDS: ENOXAPARIN INJ 80 MG/0.8 ML SYR SC SCH ×2 (08:37→20:46)
[2020-12-04] MEDS: ZINC SULFATE 220 MG CAP PO SCH (08:37)
[2020-12-04] MEDS: FLUCONAZOLE 400MG/200ML BAG 200 ML IV SCH (10:23)
[2020-12-04] MEDS: FENTANYL 2000MCG/NS 250 250 ML IV SCH ×2 (12:03→18:23)
[2020-12-04] MEDS: MIDAZOLAM HCL 5MG/ML 10ML VIAL 100 ML IV PRN ×2 (12:05→21:46)
[2020-12-04] MEDS: FUROSEMIDE INJ 10 MG/ML 4 ML VIAL IV SCH (12:12)
[2020-12-04] MEDS: ACETAMINOPHEN 325 MG TAB PO PRN (12:48)
[2020-12-04] MEDS ORDERED: ACYCLOVIR 15 GM OINT TP SCH (17:30)
[2020-12-04] MEDS: ACYCLOVIR SODIUM INJ 1,000 MG in SODIUM CHLORIDE 0.9% 250ML 250 ML IV SCH (22:41)
[2020-12-05] VITALS (27 sets, daily range): BP systolic 11–137; BP diastolic 48–83
[2020-12-05] MEDS: FUROSEMIDE INJ 10 MG/ML 4 ML VIAL IV SCH ×3 (00:09→20:20)
[2020-12-05] MEDS: FENTANYL 2000MCG/NS 250 250 ML IV SCH ×4 (00:41→16:59)
[2020-12-05] MEDS: Vancomycin IV 1 GM in SODIUM CHLORIDE 0.9% 250ML 250 ML IV SCH ×3 (01:17→23:58)
[2020-12-05] MEDS: MIDAZOLAM HCL 5MG/ML 10ML VIAL 100 ML IV PRN ×5 (03:18→22:12)
[2020-12-05] MEDS: ROCURONIUM BROMIDE 1,250 MG in SODIUM CHLORIDE 0.9% 250ML 125 ML IV SCH ×2 (05:17→12:59)
[2020-12-05] MEDS: MEROPENEM 500 MG in SODIUM CHLORIDE 0.9% 50ML 50 ML IV SCH ×3 (05:17→21:03)
[2020-12-05] MEDS: ACYCLOVIR SODIUM INJ 1,000 MG in SODIUM CHLORIDE 0.9% 250ML 250 ML IV SCH ×3 (06:20→22:01)
[2020-12-05 06:58] LABS: BASOPHILS # (AUTO) 0.1 (0.0-0.1); BASOPHILS % 0.4 % (0.0-1.0); EOSINOPHILS # (AUTO) 0.1 (0.0-0.4); EOSINOPHILS % 0.8 % (0.0-6.0); HEMATOCRIT 28.1 % (34.2-44.1); LYMPHOCYTES # (AUTO) 0.8 (1.0-3.2); LYMPHOCYTES % 5.8 % (18.0-39.1); MEAN CORPUSCULAR HEMOGLOBIN 30.4 pg (28-32); MEAN CORPUSCULAR VOLUME 94.9 fL (81-99); MONOCYTES # (AUTO) 0.4 (0.2-0.8); NEUTROPHILS # (AUTO) 12.2 (2.1-6.9); NEUTROPHILS % 89.3 % (38.7-80.0); PLATELET COUNT 410 x10e3/uL (140-360); RED BLOOD COUNT 2.96 x10e6/uL (3.6-5.1); RED CELL DISTRIBUTION WIDTH 13.1 % (11.7-14.4)
[2020-12-05] MEDS: OMEPRAZOLE 20 MG CAP PO SCH (07:30)
[2020-12-05 07:35] LABS: ALBUMIN 2.4 g/dL (3.5-5.0); ALBUMIN/GLOBULIN RATIO 0.8 (0.8-2.0); ANION GAP 12.1 mmol/L (8-16); CALCIUM 8.3 mg/dL (8.4-10.2); CREATININE, SERUM 0.48 mg/dL (0.57-1.11); POTASSIUM 4.1 mmol/L (3.5-5.1)
[2020-12-05] MEDS: ZINC SULFATE 220 MG CAP PO SCH (08:08)
[2020-12-05] MEDS: ENOXAPARIN INJ 80 MG/0.8 ML SYR SC SCH ×2 (08:08→20:20)
[2020-12-05] MEDS: ASCORBIC ACID 500 MG TAB PO SCH ×2 (08:08→16:58)
[2020-12-05] MEDS: BARICITINIB 2 MG TABLET PO SCH (08:08)
[2020-12-05 09:17] LABS: ABG HCO3 41 mmol/L (22-26); ABG PCO2 69 mmHg (35-45); ABG PH 7.38 (7.35-7.45); ABG PO2 109 mmHg (80-105); ABG TCO2 43
[2020-12-05] MEDS ORDERED: ROCURONIUM 1250MG/NS 250 250 ML ONE (09:47)
[2020-12-05] MEDS: ACYCLOVIR 15 GM OINT TP SCH ×6 (12:20→22:27)
[2020-12-05] MEDS: FLUCONAZOLE 400MG/200ML BAG 200 ML IV SCH (12:21)
[2020-12-05] MEDS: ROCURONIUM 1250MG/NS 250 250 ML IV SCH (15:25)
[2020-12-06] VITALS (30 sets, daily range): BP systolic 98–146; BP diastolic 52–79
[2020-12-06] MEDS: MIDAZOLAM HCL 5MG/ML 10ML VIAL 100 ML IV PRN ×4 (03:30→19:23)
[2020-12-06] MEDS: FENTANYL 2000MCG/NS 250 250 ML IV SCH ×3 (03:51→13:57)
[2020-12-06] MEDS ORDERED: PROPOFOL IV EMULSION 50 ML IV ONE ×3 (04:40→09:38)
[2020-12-06] MEDS: PROPOFOL IV EMULSION 10MG/ML 100 ML IV PRN ×2 (04:40→06:22)
[2020-12-06] MEDS: MEROPENEM 500 MG in SODIUM CHLORIDE 0.9% 50ML 50 ML IV SCH (05:02)
[2020-12-06] MEDS: ACYCLOVIR SODIUM INJ 1,000 MG in SODIUM CHLORIDE 0.9% 250ML 250 ML IV SCH ×3 (06:01→22:08)
[2020-12-06 06:35] LABS: BASOPHILS # (AUTO) 0.1 (0.0-0.1); BASOPHILS % 0.5 % (0.0-1.0); EOSINOPHILS # (AUTO) 0.2 (0.0-0.4); EOSINOPHILS % 1.2 % (0.0-6.0); HEMATOCRIT 31.1 % (34.2-44.1); LYMPHOCYTES # (AUTO) 0.9 (1.0-3.2); LYMPHOCYTES % 5.1 % (18.0-39.1); MEAN CORPUSCULAR HEMOGLOBIN 30.1 pg (28-32); MEAN CORPUSCULAR HGB CONC 32.2 g/dL (31-35); MEAN CORPUSCULAR VOLUME 93.7 fL (81-99); MONOCYTES # (AUTO) 0.5 (0.2-0.8); MONOCYTES % 3.2 % (4.4-11.3); NEUTROPHILS # (AUTO) 14.9 (2.1-6.9); NEUTROPHILS % 88.8 % (38.7-80.0); PLATELET COUNT 487 x10e3/uL (140-360); RED BLOOD COUNT 3.32 x10e6/uL (3.6-5.1)
[2020-12-06 07:06] LABS: ALBUMIN 2.4 g/dL (3.5-5.0); ALBUMIN/GLOBULIN RATIO 0.6 (0.8-2.0); ANION GAP 12.7 mmol/L (8-16); CALCIUM 8.4 mg/dL (8.4-10.2); CREATININE, SERUM 0.52 mg/dL (0.57-1.11); POTASSIUM 3.7 mmol/L (3.5-5.1)
[2020-12-06] MEDS: ASCORBIC ACID 500 MG TAB PO SCH ×2 (08:57→16:12)
[2020-12-06] MEDS: ACYCLOVIR 15 GM OINT TP SCH ×6 (08:57→22:08)
[2020-12-06] MEDS: ENOXAPARIN INJ 80 MG/0.8 ML SYR SC SCH ×2 (08:57→20:31)
[2020-12-06] MEDS: BARICITINIB 2 MG TABLET PO SCH (08:57)
[2020-12-06] MEDS: ZINC SULFATE 220 MG CAP PO SCH (08:57)
[2020-12-06] MEDS: OMEPRAZOLE 20 MG CAP PO SCH (09:35)
[2020-12-06] MEDS: ROCURONIUM 1250MG/NS 250 250 ML IV SCH (09:35)
[2020-12-06 09:52] LABS: ABG PH 7.37 (7.35-7.45)
[2020-12-06 09:53] LABS: ABG HCO3 38 mmol/L (22-26); ABG PCO2 65 mmHg (35-45); ABG PO2 84 mmHg (80-105); ABG TCO2 40
[2020-12-06] MEDS ORDERED: PROPOFOL IV EMULSION 100 ML IV PRN (10:00)
[2020-12-06] MEDS: FLUCONAZOLE 400MG/200ML BAG 200 ML IV SCH (10:23)
[2020-12-06] MEDS: FUROSEMIDE INJ 10 MG/ML 4 ML VIAL IV SCH ×2 (11:22→20:31)
[2020-12-06] MEDS: ALBUMIN 25% 25GM 100ML 0.25 GM/ML BTL IV SCH ×3 (11:23→21:15)
[2020-12-06] MEDS: Vancomycin IV 1 GM in SODIUM CHLORIDE 0.9% 250ML 250 ML IV SCH (11:24)
[2020-12-06] MEDS: PROPOFOL IV EMULSION 100 ML IV PRN ×2 (13:58→19:25)
[2020-12-07] VITALS (28 sets, daily range): BP systolic 101–139; BP diastolic 48–78
[2020-12-07] MEDS: MIDAZOLAM HCL 5MG/ML 10ML VIAL 100 ML IV PRN ×5 (00:23→21:18)
[2020-12-07] MEDS: PROPOFOL IV EMULSION 100 ML IV PRN ×6 (00:24→21:20)
[2020-12-07] MEDS: FENTANYL 2000MCG/NS 250 250 ML IV SCH ×4 (01:05→22:20)
[2020-12-07] MEDS ORDERED: VASOPRESSIN INJ 20 UNIT/ML VIAL ONE (03:23)
[2020-12-07] MEDS: ACYCLOVIR SODIUM INJ 1,000 MG in SODIUM CHLORIDE 0.9% 250ML 250 ML IV SCH ×3 (05:29→22:30)
[2020-12-07] MEDS: ROCURONIUM 1250MG/NS 250 250 ML IV SCH (06:12)
[2020-12-07 06:19] LABS: BASOPHILS % 0.4 % (0.0-1.0); EOSINOPHILS # (AUTO) 0.3 (0.0-0.4); EOSINOPHILS % 2.9 % (0.0-6.0); HEMATOCRIT 25.4 % (34.2-44.1); HEMOGLOBIN 8.1 g/dL (12.0-16.0); LYMPHOCYTES # (AUTO) 1.7 (1.0-3.2); LYMPHOCYTES % 17.1 % (18.0-39.1); MEAN CORPUSCULAR HEMOGLOBIN 30.5 pg (28-32); MEAN CORPUSCULAR HGB CONC 31.9 g/dL (31-35); MEAN CORPUSCULAR VOLUME 95.5 fL (81-99); MONOCYTES # (AUTO) 0.4 (0.2-0.8); MONOCYTES % 4.5 % (4.4-11.3); NEUTROPHILS # (AUTO) 7.2 (2.1-6.9); NEUTROPHILS % 74.1 % (38.7-80.0); PLATELET COUNT 406 x10e3/uL (140-360); RED BLOOD COUNT 2.66 x10e6/uL (3.6-5.1); RED CELL DISTRIBUTION WIDTH 13.2 % (11.7-14.4)
[2020-12-07 06:57] LABS: ALBUMIN 2.8 g/dL (3.5-5.0); ALBUMIN/GLOBULIN RATIO 0.9 (0.8-2.0); ANION GAP 10.1 mmol/L (8-16); CALCIUM 8.7 mg/dL (8.4-10.2); CREATININE, SERUM 0.45 mg/dL (0.57-1.11); POTASSIUM 3.1 mmol/L (3.5-5.1)
[2020-12-07] MEDS: ASCORBIC ACID 500 MG TAB PO SCH ×2 (08:25→16:52)
[2020-12-07] MEDS: ZINC SULFATE 220 MG CAP PO SCH (08:25)
[2020-12-07] MEDS: ENOXAPARIN INJ 80 MG/0.8 ML SYR SC SCH ×2 (08:25→20:25)
[2020-12-07] MEDS: OMEPRAZOLE 20 MG CAP PO SCH (08:25)
[2020-12-07] MEDS: ACYCLOVIR 15 GM OINT TP SCH ×6 (08:25→22:30)
[2020-12-07] MEDS ORDERED: PROPOFOL IV EMULSION 10MG/ML 100 ML ONE (08:39)
[2020-12-07 09:42] LABS: ABG PCO2 65 mmHg (35-45); ABG PO2 91 mmHg (80-105)
[2020-12-07 09:43] LABS: ABG HCO3 40 mmol/L (22-26); ABG TCO2 42
[2020-12-07] MEDS ORDERED: POTASSIUM CHLORIDE 20MEQ/100ML 200 ML IV ONE (12:45)
[2020-12-08] VITALS (25 sets, daily range): BP systolic 92–165; BP diastolic 51–83
[2020-12-08] MEDS ORDERED: SODIUM CHLORIDE 0.9% 250ML 250 ML ONE (00:08)
[2020-12-08] MEDS: MIDAZOLAM HCL 5MG/ML 10ML VIAL 100 ML IV PRN ×4 (01:46→17:30)
[2020-12-08] MEDS: FENTANYL 2000MCG/NS 250 250 ML IV SCH ×3 (05:50→18:55)
[2020-12-08 05:57] LABS: BASOPHILS # (AUTO) 0.1 (0.0-0.1); BASOPHILS % 0.5 % (0.0-1.0); EOSINOPHILS # (AUTO) 0.4 (0.0-0.4); EOSINOPHILS % 2.9 % (0.0-6.0); HEMATOCRIT 27.3 % (34.2-44.1); HEMOGLOBIN 8.6 g/dL (12.0-16.0); LYMPHOCYTES # (AUTO) 1.3 (1.0-3.2); LYMPHOCYTES % 10.6 % (18.0-39.1); MEAN CORPUSCULAR HEMOGLOBIN 30.3 pg (28-32); MEAN CORPUSCULAR HGB CONC 31.5 g/dL (31-35); MEAN CORPUSCULAR VOLUME 96.1 fL (81-99); MONOCYTES # (AUTO) 0.5 (0.2-0.8); MONOCYTES % 4.1 % (4.4-11.3); NEUTROPHILS # (AUTO) 9.7 (2.1-6.9); NEUTROPHILS % 80.2 % (38.7-80.0); PLATELET COUNT 476 x10e3/uL (140-360); RED BLOOD COUNT 2.84 x10e6/uL (3.6-5.1); RED CELL DISTRIBUTION WIDTH 13.4 % (11.7-14.4)
[2020-12-08] MEDS: ACYCLOVIR SODIUM INJ 1,000 MG in SODIUM CHLORIDE 0.9% 250ML 250 ML IV SCH ×3 (06:19→21:53)
[2020-12-08 06:27] LABS: ALBUMIN 2.6 g/dL (3.5-5.0); ALBUMIN/GLOBULIN RATIO 0.8 (0.8-2.0); ANION GAP 13.1 mmol/L (8-16); CALCIUM 8.8 mg/dL (8.4-10.2); CREATININE, SERUM 0.54 mg/dL (0.57-1.11); POTASSIUM 4.1 mmol/L (3.5-5.1)
[2020-12-08] MEDS ORDERED: PROPOFOL IV EMULSION 10MG/ML 200 ML ONE (07:29)
[2020-12-08] MEDS: PROPOFOL IV EMULSION 100 ML IV PRN ×2 (07:35→16:08)
[2020-12-08] MEDS ORDERED: VECURONIUM BROMIDE FOR INJ 20 MG VIAL ONE (08:01)
[2020-12-08] MEDS: FUROSEMIDE INJ 10 MG/ML 4 ML VIAL IV SCH ×2 (08:49→21:53)
[2020-12-08] MEDS: ALBUMIN 25% 25GM 100ML 0.25 GM/ML BTL IV SCH ×2 (08:49→14:53)
[2020-12-08] MEDS: ZINC SULFATE 220 MG CAP PO SCH (09:45)
[2020-12-08] MEDS: ENOXAPARIN INJ 80 MG/0.8 ML SYR SC SCH ×2 (09:45→21:53)
[2020-12-08] MEDS: ASCORBIC ACID 500 MG TAB PO SCH ×2 (09:45→17:18)
[2020-12-08] MEDS: ACYCLOVIR 15 GM OINT TP SCH ×5 (09:45→20:27)
[2020-12-08 09:49] LABS: ABG HCO3 35 mmol/L (22-26); ABG PCO2 64 mmHg (35-45); ABG PH 7.35 (7.35-7.45); ABG PO2 63 mmHg (80-105); ABG TCO2 37
[2020-12-08] MEDS: OMEPRAZOLE 20 MG CAP PO SCH ×2 (12:47→13:00)
[2020-12-08] MEDS ORDERED: ALBUMIN 25% 12.5GM 50ML 100 ML IV ONE (15:01)
[2020-12-08] MEDS: ROCURONIUM 1250MG/NS 250 250 ML IV SCH (15:39)
[2020-12-08] MEDS ORDERED: ALBUMIN 25% 12.5GM 0.25 GM/ML BTL IV ONE (22:00)
[2020-12-09] VITALS (31 sets, daily range): BP systolic 90–175; BP diastolic 60–84
[2020-12-09] MEDS: ACYCLOVIR 15 GM OINT TP SCH ×6 (00:24→20:30)
[2020-12-09] MEDS: ACYCLOVIR SODIUM INJ 1,000 MG in SODIUM CHLORIDE 0.9% 250ML 250 ML IV SCH ×3 (06:08→21:23)
[2020-12-09 06:20] LABS: BASOPHILS % 0.3 % (0.0-1.0); EOSINOPHILS # (AUTO) 0.4 (0.0-0.4); EOSINOPHILS % 3.4 % (0.0-6.0); HEMATOCRIT 24.1 % (34.2-44.1); HEMOGLOBIN 7.5 g/dL (12.0-16.0); LYMPHOCYTES # (AUTO) 0.8 (1.0-3.2); LYMPHOCYTES % 6.9 % (18.0-39.1); MEAN CORPUSCULAR HGB CONC 31.1 g/dL (31-35); MEAN CORPUSCULAR VOLUME 96.4 fL (81-99); MONOCYTES # (AUTO) 0.4 (0.2-0.8); MONOCYTES % 3.4 % (4.4-11.3); NEUTROPHILS # (AUTO) 10.1 (2.1-6.9); NEUTROPHILS % 84.6 % (38.7-80.0); PLATELET COUNT 444 x10e3/uL (140-360); RED CELL DISTRIBUTION WIDTH 13.2 % (11.7-14.4)
[2020-12-09 06:55] LABS: ALBUMIN 3.4 g/dL (3.5-5.0); ALBUMIN/GLOBULIN RATIO 1.2 (0.8-2.0); ANION GAP 12.9 mmol/L (8-16); CALCIUM 9.5 mg/dL (8.4-10.2); CREATININE, SERUM 0.52 mg/dL (0.57-1.11); POTASSIUM 3.9 mmol/L (3.5-5.1)
[2020-12-09 08:41] LABS: ABG PCO2 72 mmHg (35-45); ABG PH 7.33 (7.35-7.45); ABG PO2 99 mmHg (80-105)
[2020-12-09 08:42] LABS: ABG HCO3 38 mmol/L (22-26); ABG TCO2 40
[2020-12-09] MEDS: FENTANYL 2000MCG/NS 250 250 ML IV SCH (08:54)
[2020-12-09] MEDS: MIDAZOLAM HCL 5MG/ML 10ML VIAL 100 ML IV PRN ×3 (08:54→18:16)
[2020-12-09] MEDS: ASCORBIC ACID 500 MG TAB PO SCH ×2 (09:00→17:50)
[2020-12-09] MEDS ORDERED: FENTANYL 2000MCG/NS 250 250 ML IV SCH (09:15)
[2020-12-09] MEDS: ZINC SULFATE 220 MG CAP PO SCH (09:59)
[2020-12-09] MEDS: OMEPRAZOLE 20 MG CAP PO SCH (10:09)
[2020-12-09] MEDS: FUROSEMIDE INJ 100 MG in SODIUM CHLORIDE 0.9% 100 ML 90 ML IV SCH (12:22)
[2020-12-09] MEDS: PROPOFOL IV EMULSION 100 ML IV PRN (18:15)
[2020-12-09] MEDS: ENOXAPARIN INJ 80 MG/0.8 ML SYR SC SCH (21:23)
[2020-12-10] VITALS (24 sets, daily range): BP systolic 83–136; BP diastolic 51–70
[2020-12-10] MEDS: ACYCLOVIR 15 GM OINT TP SCH ×6 (02:01→20:53)
[2020-12-10] MEDS: ACYCLOVIR SODIUM INJ 1,000 MG in SODIUM CHLORIDE 0.9% 250ML 250 ML IV SCH ×3 (05:48→22:07)
[2020-12-10] MEDS: FUROSEMIDE INJ 100 MG in SODIUM CHLORIDE 0.9% 100 ML 90 ML IV SCH (05:48)
[2020-12-10 06:10] LABS: BASOPHILS # (AUTO) 0.1 (0.0-0.1); BASOPHILS % 0.4 % (0.0-1.0); EOSINOPHILS # (AUTO) 0.5 (0.0-0.4); EOSINOPHILS % 3.8 % (0.0-6.0); HEMATOCRIT 25.8 % (34.2-44.1); HEMOGLOBIN 7.9 g/dL (12.0-16.0); LYMPHOCYTES # (AUTO) 0.8 (1.0-3.2); LYMPHOCYTES % 6.3 % (18.0-39.1); MEAN CORPUSCULAR HEMOGLOBIN 29.8 pg (28-32); MEAN CORPUSCULAR HGB CONC 30.6 g/dL (31-35); MEAN CORPUSCULAR VOLUME 97.4 fL (81-99); MONOCYTES # (AUTO) 0.5 (0.2-0.8); MONOCYTES % 4.4 % (4.4-11.3); NEUTROPHILS # (AUTO) 10.2 (2.1-6.9); NEUTROPHILS % 83.6 % (38.7-80.0); PLATELET COUNT 463 x10e3/uL (140-360); RED BLOOD COUNT 2.65 x10e6/uL (3.6-5.1); RED CELL DISTRIBUTION WIDTH 13.3 % (11.7-14.4)
[2020-12-10 06:45] LABS: ALBUMIN 2.9 g/dL (3.5-5.0); ALBUMIN/GLOBULIN RATIO 0.9 (0.8-2.0); ANION GAP 14.3 mmol/L (8-16); CREATININE, SERUM 0.48 mg/dL (0.57-1.11); POTASSIUM 3.3 mmol/L (3.5-5.1)
[2020-12-10] MEDS: PROPOFOL IV EMULSION 100 ML IV PRN ×3 (09:08→19:00)
[2020-12-10] MEDS: MIDAZOLAM HCL 5MG/ML 10ML VIAL 100 ML IV PRN ×3 (09:17→17:28)
[2020-12-10 09:20] LABS: ABG HCO3 42 mmol/L (22-26); ABG PCO2 67 mmHg (35-45); ABG PO2 93 mmHg (80-105); ABG TCO2 44
[2020-12-10] MEDS: OMEPRAZOLE 20 MG CAP PO SCH (10:56)
[2020-12-10] MEDS: ENOXAPARIN INJ 80 MG/0.8 ML SYR SC SCH ×2 (10:57→22:06)
[2020-12-10] MEDS: ZINC SULFATE 220 MG CAP PO SCH (10:57)
[2020-12-10] MEDS: ASCORBIC ACID 500 MG TAB PO SCH ×2 (10:57→17:27)
[2020-12-10] MEDS ORDERED: POTASSIUM CHLORIDE 20MEQ/100ML 200 ML IV ONE (11:30)
[2020-12-10] MEDS: FENTANYL 2000MCG/NS 250 250 ML IV PRN ×2 (12:43→17:27)
[2020-12-11] VITALS (24 sets, daily range): BP systolic 90–131; BP diastolic 52–86
[2020-12-11] MEDS: PROPOFOL IV EMULSION 100 ML IV PRN ×2 (00:04→09:38)
[2020-12-11] MEDS: ACYCLOVIR 15 GM OINT TP SCH ×7 (01:16→23:30)
[2020-12-11] MEDS: FUROSEMIDE INJ 100 MG in SODIUM CHLORIDE 0.9% 100 ML 90 ML IV SCH ×2 (03:14→23:30)
[2020-12-11 06:21] LABS: BASOPHILS # (AUTO) 0.1 (0.0-0.1); BASOPHILS % 0.5 % (0.0-1.0); EOSINOPHILS # (AUTO) 0.7 (0.0-0.4); EOSINOPHILS % 7.5 % (0.0-6.0); HEMATOCRIT 25.2 % (34.2-44.1); HEMOGLOBIN 7.8 g/dL (12.0-16.0); LYMPHOCYTES # (AUTO) 0.9 (1.0-3.2); LYMPHOCYTES % 9.1 % (18.0-39.1); MEAN CORPUSCULAR HEMOGLOBIN 29.9 pg (28-32); MEAN CORPUSCULAR VOLUME 96.6 fL (81-99); MONOCYTES # (AUTO) 0.6 (0.2-0.8); MONOCYTES % 5.7 % (4.4-11.3); NEUTROPHILS # (AUTO) 7.4 (2.1-6.9); NEUTROPHILS % 75.2 % (38.7-80.0); PLATELET COUNT 499 x10e3/uL (140-360); RED BLOOD COUNT 2.61 x10e6/uL (3.6-5.1); RED CELL DISTRIBUTION WIDTH 13.4 % (11.7-14.4)
[2020-12-11] MEDS: ACYCLOVIR SODIUM INJ 1,000 MG in SODIUM CHLORIDE 0.9% 250ML 250 ML IV SCH ×2 (06:48→13:06)
[2020-12-11 07:01] LABS: ALBUMIN 2.4 g/dL (3.5-5.0); ALBUMIN/GLOBULIN RATIO 0.7 (0.8-2.0); ANION GAP 14.3 mmol/L (8-16); CALCIUM 8.6 mg/dL (8.4-10.2); CREATININE, SERUM 0.48 mg/dL (0.57-1.11); POTASSIUM 3.3 mmol/L (3.5-5.1)
[2020-12-11] MEDS: OMEPRAZOLE 20 MG CAP PO SCH (07:30)
[2020-12-11] MEDS: ZINC SULFATE 220 MG CAP PO SCH (08:24)
[2020-12-11] MEDS: ASCORBIC ACID 500 MG TAB PO SCH ×2 (08:24→17:22)
[2020-12-11] MEDS: ENOXAPARIN INJ 80 MG/0.8 ML SYR SC SCH ×2 (08:24→22:39)
[2020-12-11 08:28] LABS: ABG HCO3 44 mmol/L (22-26); ABG PCO2 66 mmHg (35-45); ABG PH 7.43 (7.35-7.45); ABG PO2 67 mmHg (80-105); ABG TCO2 46
[2020-12-11] MEDS ORDERED: POTASSIUM CHLORIDE 20MEQ/100ML 200 ML IV ONE (09:00)
[2020-12-11] MEDS: MIDAZOLAM HCL 5MG/ML 10ML VIAL 100 ML IV PRN ×2 (09:39→17:23)
[2020-12-11] MEDS: FENTANYL 2000MCG/NS 250 250 ML IV PRN ×2 (09:39→17:22)
[2020-12-11] MEDS: PROPOFOL IV EMULSION 10MG/ML 100 ML IV PRN (17:23)
[2020-12-12] VITALS (30 sets, daily range): BP systolic 90–133; BP diastolic 46–75
[2020-12-12 05:59] LABS: BASOPHILS # (AUTO) 0.1 (0.0-0.1); BASOPHILS % 0.6 % (0.0-1.0); EOSINOPHILS % 8.7 % (0.0-6.0); HEMATOCRIT 26.8 % (34.2-44.1); HEMOGLOBIN 8.7 g/dL (12.0-16.0); LYMPHOCYTES # (AUTO) 1.1 (1.0-3.2); LYMPHOCYTES % 9.5 % (18.0-39.1); MEAN CORPUSCULAR HEMOGLOBIN 31.2 pg (28-32); MEAN CORPUSCULAR HGB CONC 32.5 g/dL (31-35); MEAN CORPUSCULAR VOLUME 96.1 fL (81-99); MONOCYTES # (AUTO) 0.8 (0.2-0.8); MONOCYTES % 7.4 % (4.4-11.3); NEUTROPHILS # (AUTO) 7.8 (2.1-6.9); NEUTROPHILS % 70.6 % (38.7-80.0); PLATELET COUNT 498 x10e3/uL (140-360); RED BLOOD COUNT 2.79 x10e6/uL (3.6-5.1); RED CELL DISTRIBUTION WIDTH 13.9 % (11.7-14.4)
[2020-12-12 06:24] LABS: ALBUMIN 2.4 g/dL (3.5-5.0); ALBUMIN/GLOBULIN RATIO 0.6 (0.8-2.0); ANION GAP 15.5 mmol/L (8-16); CALCIUM 9.2 mg/dL (8.4-10.2); CREATININE, SERUM 0.51 mg/dL (0.57-1.11); POTASSIUM 3.5 mmol/L (3.5-5.1)
[2020-12-12] MEDS: FENTANYL 2000MCG/NS 250 250 ML IV PRN ×2 (07:29→18:33)
[2020-12-12] MEDS: ACYCLOVIR 15 GM OINT TP SCH ×2 (07:30→11:30)
[2020-12-12] MEDS: MIDAZOLAM HCL 5MG/ML 10ML VIAL 100 ML IV PRN ×2 (07:30→17:01)
[2020-12-12] MEDS: OMEPRAZOLE 20 MG CAP PO SCH (07:30)
[2020-12-12 08:45] LABS: ABG HCO3 39 mmol/L (22-26); ABG PCO2 51 mmHg (35-45); ABG PH 7.49 (7.35-7.45); ABG PO2 79 mmHg (80-105); ABG TCO2 40
[2020-12-12] MEDS: DOCUSATE SODIUM LIQD 100 MG/10 ML UDC NG SCH ×2 (08:50→17:02)
[2020-12-12] MEDS: ENOXAPARIN INJ 80 MG/0.8 ML SYR SC SCH ×2 (08:50→21:05)
[2020-12-12] MEDS: ZINC SULFATE 220 MG CAP PO SCH (08:50)
[2020-12-12] MEDS: ASCORBIC ACID 500 MG TAB PO SCH ×2 (08:50→17:02)
[2020-12-12] MEDS: LACTULOSE SYRUP 20 GM/30 ML UDC PO PRN (08:51)
[2020-12-12] MEDS: PROPOFOL IV EMULSION 10MG/ML 100 ML IV PRN (11:30)
[2020-12-12] MEDS: FUROSEMIDE INJ 100 MG in SODIUM CHLORIDE 0.9% 100 ML 90 ML IV SCH ×3 (12:35→23:40)
[2020-12-12] MEDS ORDERED: ALBUMIN 25% 25GM 100ML 0.25 GM/ML BTL IV SCH (12:45)
[2020-12-12] MEDS: ALBUMIN 25% 12.5GM 50ML 100 ML IV SCH ×2 (13:37→21:05)
[2020-12-12 17:48] LABS: ABG PH 7.36 (7.35-7.45)
[2020-12-12 17:49] LABS: ABG HCO3 43 mmol/L (22-26); ABG PCO2 76 mmHg (35-45); ABG PO2 67 mmHg (80-105); ABG TCO2 45
[2020-12-12] MEDS: ROCURONIUM 1250MG/NS 250 250 ML IV PRN (19:06)
[2020-12-13] VITALS (23 sets, daily range): BP systolic 84–149; BP diastolic 45–69
[2020-12-13] MEDS: ALBUMIN 25% 12.5GM 50ML 100 ML IV SCH (06:11)
[2020-12-13 07:01] LABS: BASOPHILS # (AUTO) 0.1 (0.0-0.1); BASOPHILS % 0.5 % (0.0-1.0); EOSINOPHILS % 8.6 % (0.0-6.0); HEMOGLOBIN 7.6 g/dL (12.0-16.0); LYMPHOCYTES % 8.1 % (18.0-39.1); MEAN CORPUSCULAR HEMOGLOBIN 29.7 pg (28-32); MEAN CORPUSCULAR HGB CONC 30.4 g/dL (31-35); MEAN CORPUSCULAR VOLUME 97.7 fL (81-99); MONOCYTES # (AUTO) 0.8 (0.2-0.8); MONOCYTES % 7.1 % (4.4-11.3); NEUTROPHILS # (AUTO) 8.5 (2.1-6.9); NEUTROPHILS % 72.5 % (38.7-80.0); PLATELET COUNT 540 x10e3/uL (140-360); RED BLOOD COUNT 2.56 x10e6/uL (3.6-5.1); RED CELL DISTRIBUTION WIDTH 13.9 % (11.7-14.4)
[2020-12-13] MEDS: OMEPRAZOLE 20 MG CAP PO SCH (07:30)
[2020-12-13] MEDS: FENTANYL 2000MCG/NS 250 250 ML IV PRN ×2 (07:31→13:14)
[2020-12-13] MEDS: MIDAZOLAM HCL 5MG/ML 10ML VIAL 100 ML IV PRN ×3 (07:32→17:49)
[2020-12-13 07:37] LABS: ALBUMIN 3.1 g/dL (3.5-5.0); ALBUMIN/GLOBULIN RATIO 0.9 (0.8-2.0); ANION GAP 15.2 mmol/L (8-16); CALCIUM 9.1 mg/dL (8.4-10.2); CREATININE, SERUM 0.57 mg/dL (0.57-1.11); POTASSIUM 3.2 mmol/L (3.5-5.1)
[2020-12-13] MEDS: PROPOFOL IV EMULSION 10MG/ML 100 ML IV PRN ×2 (08:56→14:17)
[2020-12-13] MEDS: ENOXAPARIN INJ 80 MG/0.8 ML SYR SC SCH ×2 (08:59→22:05)
[2020-12-13] MEDS: ASCORBIC ACID 500 MG TAB PO SCH ×2 (09:00→17:12)
[2020-12-13] MEDS: ZINC SULFATE 220 MG CAP PO SCH (09:00)
[2020-12-13] MEDS: DOCUSATE SODIUM LIQD 100 MG/10 ML UDC NG SCH ×2 (09:00→17:12)
[2020-12-13 09:54] LABS: ABG PH 7.39 (7.35-7.45)
[2020-12-13 09:55] LABS: ABG HCO3 43 mmol/L (22-26); ABG PCO2 71 mmHg (35-45); ABG PO2 72 mmHg (80-105); ABG TCO2 46
[2020-12-13] MEDS ORDERED: POTASSIUM CHLORIDE 20MEQ/100ML 200 ML IV ONE (12:45)
[2020-12-13] MEDS ORDERED: ACETAZOLAMIDE SODIUM 500 MG/VIAL IV ONE (13:00)
[2020-12-13] MEDS: FUROSEMIDE INJ 100 MG in SODIUM CHLORIDE 0.9% 100 ML 90 ML IV SCH ×2 (14:25→17:46)
[2020-12-13] MEDS: ROCURONIUM 1250MG/NS 250 250 ML IV PRN (17:49)
[2020-12-14] VITALS (22 sets, daily range): BP systolic 79–174; BP diastolic 44–76
[2020-12-14] MEDS: FUROSEMIDE INJ 100 MG in SODIUM CHLORIDE 0.9% 100 ML 90 ML IV SCH ×2 (05:47→15:38)
[2020-12-14 06:57] LABS: BASOPHILS # (AUTO) 0.1 (0.0-0.1); BASOPHILS % 0.5 % (0.0-1.0); EOSINOPHILS # (AUTO) 0.5 (0.0-0.4); EOSINOPHILS % 3.7 % (0.0-6.0); HEMATOCRIT 23.5 % (34.2-44.1); HEMOGLOBIN 7.6 g/dL (12.0-16.0); LYMPHOCYTES # (AUTO) 0.8 (1.0-3.2); LYMPHOCYTES % 5.8 % (18.0-39.1); MEAN CORPUSCULAR HEMOGLOBIN 32.8 pg (28-32); MEAN CORPUSCULAR HGB CONC 32.3 g/dL (31-35); MEAN CORPUSCULAR VOLUME 101.3 fL (81-99); MONOCYTES # (AUTO) 1.2 (0.2-0.8); MONOCYTES % 8.6 % (4.4-11.3); NEUTROPHILS % 78.7 % (38.7-80.0); PLATELET COUNT 494 x10e3/uL (140-360); RED BLOOD COUNT 2.32 x10e6/uL (3.6-5.1); RED CELL DISTRIBUTION WIDTH 14.7 % (11.7-14.4)
[2020-12-14] MEDS: OMEPRAZOLE 20 MG CAP PO SCH (07:30)
[2020-12-14 07:39] LABS: ALBUMIN/GLOBULIN RATIO 0.8 (0.8-2.0); ANION GAP 13.9 mmol/L (8-16); CALCIUM 9.1 mg/dL (8.4-10.2); CREATININE, SERUM 0.62 mg/dL (0.57-1.11)
[2020-12-14] MEDS: ZINC SULFATE 220 MG CAP PO SCH (08:06)
[2020-12-14] MEDS: DOCUSATE SODIUM LIQD 100 MG/10 ML UDC NG SCH ×2 (08:06→15:38)
[2020-12-14] MEDS: ASCORBIC ACID 500 MG TAB PO SCH ×2 (08:06→15:38)
[2020-12-14] MEDS: ENOXAPARIN INJ 80 MG/0.8 ML SYR SC SCH ×2 (08:06→21:34)
[2020-12-14 08:15] LABS: POTASSIUM 2.9 mmol/L (3.5-5.1)
[2020-12-14] MEDS: MIDAZOLAM HCL 5MG/ML 10ML VIAL 100 ML IV PRN (10:06)
[2020-12-14] MEDS: PROPOFOL IV EMULSION 10MG/ML 100 ML IV PRN (10:07)
[2020-12-14 10:13] LABS: ABG PH 7.33 (7.35-7.45)
[2020-12-14 10:14] LABS: ABG HCO3 41 mmol/L (22-26); ABG PCO2 78 mmHg (35-45); ABG PO2 70 mmHg (80-105); ABG TCO2 44
[2020-12-14] MEDS ORDERED: POTASSIUM CHLORIDE 20MEQ/100ML 200 ML IV ONE ×2 (11:30→19:00)
[2020-12-14] MEDS: FENTANYL 2000MCG/NS 250 250 ML IV PRN (18:42)
[2020-12-14] MEDS ORDERED: AMIODARONE 900MG 500 ML IV ONE (19:30)
[2020-12-14] MEDS ORDERED: AMIODARONE HCL 150 MG/100 ML BAG IV ONE (19:30)
[2020-12-15] VITALS (25 sets, daily range): BP systolic 76–166; BP diastolic 44–88
[2020-12-15] MEDS: FUROSEMIDE INJ 100 MG in SODIUM CHLORIDE 0.9% 100 ML 90 ML IV SCH ×3 (04:05→22:24)
[2020-12-15 06:05] LABS: BASOPHILS # (AUTO) 0.1 (0.0-0.1); BASOPHILS % 0.5 % (0.0-1.0); EOSINOPHILS # (AUTO) 0.4 (0.0-0.4); EOSINOPHILS % 3.2 % (0.0-6.0); HEMATOCRIT 24.3 % (34.2-44.1); HEMOGLOBIN 7.2 g/dL (12.0-16.0); LYMPHOCYTES # (AUTO) 0.7 (1.0-3.2); LYMPHOCYTES % 5.6 % (18.0-39.1); MEAN CORPUSCULAR HEMOGLOBIN 29.3 pg (28-32); MEAN CORPUSCULAR HGB CONC 29.6 g/dL (31-35); MEAN CORPUSCULAR VOLUME 98.8 fL (81-99); MONOCYTES # (AUTO) 1.1 (0.2-0.8); MONOCYTES % 8.3 % (4.4-11.3); NEUTROPHILS # (AUTO) 10.4 (2.1-6.9); NEUTROPHILS % 79.9 % (38.7-80.0); PLATELET COUNT 466 x10e3/uL (140-360); RED BLOOD COUNT 2.46 x10e6/uL (3.6-5.1); RED CELL DISTRIBUTION WIDTH 14.4 % (11.7-14.4)
[2020-12-15 06:19] LABS: ALBUMIN 2.8 g/dL (3.5-5.0); ALBUMIN/GLOBULIN RATIO 0.8 (0.8-2.0); ANION GAP 11.7 mmol/L (8-16); CALCIUM 8.8 mg/dL (8.4-10.2); CREATININE, SERUM 0.61 mg/dL (0.57-1.11); POTASSIUM 3.7 mmol/L (3.5-5.1)
[2020-12-15] MEDS: OMEPRAZOLE 20 MG CAP PO SCH (07:30)
[2020-12-15] MEDS: MIDAZOLAM HCL 5MG/ML 10ML VIAL 100 ML IV PRN ×3 (07:45→22:07)
[2020-12-15] MEDS: FENTANYL 2000MCG/NS 250 250 ML IV PRN ×3 (07:45→22:08)
[2020-12-15] MEDS: ASCORBIC ACID 500 MG TAB PO SCH ×2 (09:00→17:05)
[2020-12-15] MEDS: ENOXAPARIN INJ 80 MG/0.8 ML SYR SC SCH ×2 (09:00→20:20)
[2020-12-15] MEDS: DOCUSATE SODIUM LIQD 100 MG/10 ML UDC NG SCH ×2 (09:00→17:05)
[2020-12-15] MEDS: LACTULOSE SYRUP 20 GM/30 ML UDC PO PRN (09:00)
[2020-12-15 10:03] LABS: ABG PH 7.31 (7.35-7.45)
[2020-12-15 10:04] LABS: ABG HCO3 39 mmol/L (22-26); ABG PCO2 78 mmHg (35-45); ABG PO2 64 mmHg (80-105); ABG TCO2 42
[2020-12-15] MEDS: ZINC SULFATE 220 MG CAP PO SCH (10:19)
[2020-12-15] MEDS ORDERED: ACETAZOLAMIDE SODIUM 500 MG/VIAL IV ONE (11:00)
[2020-12-15] MEDS: PROPOFOL IV EMULSION 10MG/ML 100 ML IV PRN ×3 (11:27→23:20)
[2020-12-15] MEDS ORDERED: MINERAL OIL 132 ML BTL PR ONE (17:00)
[2020-12-15] MEDS: PIPERACILLIN/TAZOBACTAM 3.375 GM in SODIUM CHLORIDE 0.9% 50ML 50 ML IV SCH (17:05)
[2020-12-15] MEDS: BISACODYL 10 MG SUPP PR PRN (17:06)
[2020-12-15 17:30] LABS: CLARITY,URINE CLOUDY (CLEAR); COLOR,URINE YELLOW (YELLOW); LEUKOCYTE ESTERASE ,URINE MODERATE (NEGATIVE); NITRITE,URINE NEGATIVE (NEGATIVE); PROTEIN,URINE DIPSTICK NEGATIVE (NEGATIVE)
[2020-12-15 17:31] LABS: KETONES,URINE NEGATIVE (NEGATIVE)
[2020-12-15 17:32] LABS: AMORPHOUS SEDIMENT,URINE MODERATE (FEW); BACTERIA,URINE MODERATE /HPF; EPITHELIAL CELLS,URINE RARE /LPF; RBC,URINE 0-5 /HPF (0-5); URINE UROBILINOGEN 1 mg/dL (0.2 - 1)
[2020-12-15] MEDS ORDERED: ACETAMINOPHEN 1000 MG/100 ML IV ONE (17:50)
[2020-12-16] VITALS (24 sets, daily range): BP systolic 85–146; BP diastolic 53–73
[2020-12-16] MEDS: LACTULOSE SYRUP 20 GM/30 ML UDC PO PRN ×2 (03:11→09:00)
[2020-12-16] MEDS: MIDAZOLAM HCL 5MG/ML 10ML VIAL 100 ML IV PRN ×3 (03:33→23:35)
[2020-12-16] MEDS: FENTANYL 2000MCG/NS 250 250 ML IV PRN (05:16)
[2020-12-16] MEDS: PROPOFOL IV EMULSION 10MG/ML 100 ML IV PRN ×3 (06:08→23:34)
[2020-12-16] MEDS: PIPERACILLIN/TAZOBACTAM 3.375 GM in SODIUM CHLORIDE 0.9% 50ML 50 ML IV SCH ×3 (06:29)
[2020-12-16] MEDS: FUROSEMIDE INJ 100 MG in SODIUM CHLORIDE 0.9% 100 ML 90 ML IV SCH ×2 (06:31→23:33)
[2020-12-16 06:53] LABS: BASOPHILS # (AUTO) 0.1 (0.0-0.1); BASOPHILS % 0.4 % (0.0-1.0); EOSINOPHILS # (AUTO) 0.1 (0.0-0.4); EOSINOPHILS % 0.2 % (0.0-6.0); HEMATOCRIT 26.9 % (34.2-44.1); HEMOGLOBIN 7.9 g/dL (12.0-16.0); LYMPHOCYTES # (AUTO) 0.9 (1.0-3.2); LYMPHOCYTES % 2.9 % (18.0-39.1); MEAN CORPUSCULAR HEMOGLOBIN 29.9 pg (28-32); MEAN CORPUSCULAR HGB CONC 29.4 g/dL (31-35); MEAN CORPUSCULAR VOLUME 101.9 fL (81-99); MONOCYTES # (AUTO) 1.4 (0.2-0.8); MONOCYTES % 4.6 % (4.4-11.3); NEUTROPHILS # (AUTO) 26.5 (2.1-6.9); NEUTROPHILS % 89.8 % (38.7-80.0); PLATELET COUNT 427 x10e3/uL (140-360); RED BLOOD COUNT 2.64 x10e6/uL (3.6-5.1); RED CELL DISTRIBUTION WIDTH 14.7 % (11.7-14.4)
[2020-12-16 07:10] LABS: ALBUMIN 2.6 g/dL (3.5-5.0); ALBUMIN/GLOBULIN RATIO 0.7 (0.8-2.0); CALCIUM 8.7 mg/dL (8.4-10.2); CREATININE, SERUM 0.74 mg/dL (0.57-1.11)
[2020-12-16] MEDS: OMEPRAZOLE 20 MG CAP PO SCH (07:30)
[2020-12-16] MEDS: DOCUSATE SODIUM LIQD 100 MG/10 ML UDC NG SCH ×2 (09:00→17:06)
[2020-12-16] MEDS: ASCORBIC ACID 500 MG TAB PO SCH ×2 (09:00→17:06)
[2020-12-16 09:51] LABS: ABG PH 7.26 (7.35-7.45)
[2020-12-16 09:52] LABS: ABG HCO3 40 mmol/L (22-26); ABG PCO2 90 mmHg (35-45); ABG PO2 61 mmHg (80-105); ABG TCO2 43
[2020-12-16] MEDS ORDERED: POTASSIUM CHLORIDE 20MEQ/100ML 200 ML IV ONE (10:00)
[2020-12-16] MEDS: ZINC SULFATE 220 MG CAP PO SCH (12:08)
[2020-12-16] MEDS: ENOXAPARIN INJ 80 MG/0.8 ML SYR SC SCH ×2 (12:08→20:43)
[2020-12-16] MEDS: Vancomycin IV 1 GM in SODIUM CHLORIDE 0.9% 250ML 250 ML IV SCH ×2 (12:19→21:32)
[2020-12-16] MEDS: FLUCONAZOLE 200 MG/100 ML 100 ML IV SCH (12:19)
[2020-12-16 12:37] LABS: BAND NEUTROPHILS % (MANUAL) 15 %; EOSINOPHILS % (MANUAL) 1 % (0-7); LYMPHOCYTES % (MANUAL) 2 % (19-48); MONOCYTES % (MANUAL) 6 % (3.4-9.0); NEUTROPHILS % (MANUAL) 76 % (40-74); NUCLEATED RED BLOOD CELLS 1; PLATELET ESTIMATE ADEQUATE
[2020-12-16 12:38] LABS: HYPOCHROMASIA SLIGHT; PLATELET MORPHOLOGY COMMENT NORMAL; RBC MORPHOLOGY COMMENT NORMAL
[2020-12-16] MEDS: ALBUMIN 25% 25GM 100ML 0.25 GM/ML BTL IV SCH ×3 (14:05→21:32)
[2020-12-16] MEDS: MEROPENEM 1 GM in SODIUM CHLORIDE 0.9% 100 ML IV SCH ×2 (14:05→21:32)
[2020-12-16] MEDS: METOCLOPRAMIDE HCL 10 MG/2ML VIAL IV SCH (21:32)
[2020-12-17] VITALS (25 sets, daily range): BP systolic 90–140; BP diastolic 48–71
[2020-12-17] MEDS: FENTANYL 2000MCG/NS 250 250 ML IV PRN ×4 (01:50→22:30)
[2020-12-17] MEDS: MIDAZOLAM HCL 5MG/ML 10ML VIAL 100 ML IV PRN ×4 (04:45→21:25)
[2020-12-17] MEDS: FUROSEMIDE INJ 100 MG in SODIUM CHLORIDE 0.9% 100 ML 90 ML IV SCH ×2 (05:21→16:54)
[2020-12-17] MEDS: METOCLOPRAMIDE HCL 10 MG/2ML VIAL IV SCH ×3 (05:21→22:01)
[2020-12-17] MEDS: MEROPENEM 1 GM in SODIUM CHLORIDE 0.9% 100 ML IV SCH ×3 (05:21→22:01)
[2020-12-17] MEDS: BISACODYL 10 MG SUPP PR PRN (05:26)
[2020-12-17 06:14] LABS: BASOPHILS # (AUTO) 0.1 (0.0-0.1); BASOPHILS % 0.7 % (0.0-1.0); EOSINOPHILS # (AUTO) 0.7 (0.0-0.4); EOSINOPHILS % 4.2 % (0.0-6.0); HEMATOCRIT 25.3 % (34.2-44.1); HEMOGLOBIN 7.4 g/dL (12.0-16.0); LYMPHOCYTES # (AUTO) 1.1 (1.0-3.2); LYMPHOCYTES % 6.7 % (18.0-39.1); MEAN CORPUSCULAR HEMOGLOBIN 29.8 pg (28-32); MEAN CORPUSCULAR HGB CONC 29.2 g/dL (31-35); MONOCYTES # (AUTO) 1.1 (0.2-0.8); MONOCYTES % 6.6 % (4.4-11.3); NEUTROPHILS # (AUTO) 13.4 (2.1-6.9); NEUTROPHILS % 79.7 % (38.7-80.0); PLATELET COUNT 374 x10e3/uL (140-360); RED BLOOD COUNT 2.48 x10e6/uL (3.6-5.1)
[2020-12-17] MEDS: PROPOFOL IV EMULSION 10MG/ML 100 ML IV PRN ×2 (06:17→19:45)
[2020-12-17 06:50] LABS: ALBUMIN 3.1 g/dL (3.5-5.0); ANION GAP 12.1 mmol/L (8-16); CALCIUM 8.7 mg/dL (8.4-10.2); CREATININE, SERUM 0.6 mg/dL (0.57-1.11); POTASSIUM 3.1 mmol/L (3.5-5.1)
[2020-12-17] MEDS: OMEPRAZOLE 20 MG CAP PO SCH (07:30)
[2020-12-17 08:31] LABS: ABG HCO3 43 mmol/L (22-26); ABG PCO2 90 mmHg (35-45); ABG PH 7.29 (7.35-7.45); ABG PO2 66 mmHg (80-105); ABG TCO2 45
[2020-12-17] MEDS: Vancomycin IV 1 GM in SODIUM CHLORIDE 0.9% 250ML 250 ML IV SCH ×2 (09:51→22:01)
[2020-12-17] MEDS: DOCUSATE SODIUM LIQD 100 MG/10 ML UDC NG SCH ×2 (09:51→16:54)
[2020-12-17] MEDS: ENOXAPARIN INJ 80 MG/0.8 ML SYR SC SCH ×2 (09:51→22:01)
[2020-12-17] MEDS: ZINC SULFATE 220 MG CAP PO SCH (09:51)
[2020-12-17] MEDS: FLUCONAZOLE 200 MG/100 ML 100 ML IV SCH (09:51)
[2020-12-17] MEDS: ASCORBIC ACID 500 MG TAB PO SCH ×2 (09:51→16:54)
[2020-12-17] MEDS ORDERED: POTASSIUM CHLORIDE 20MEQ/100ML 200 ML IV ONE (13:15)
[2020-12-18] VITALS (26 sets, daily range): BP systolic 92–145; BP diastolic 56–71
[2020-12-18] MEDS: ROCURONIUM 1250MG/NS 250 250 ML IV PRN (02:17)
[2020-12-18] MEDS: PROPOFOL IV EMULSION 10MG/ML 100 ML IV PRN ×3 (02:18→21:59)
[2020-12-18] MEDS: MIDAZOLAM HCL 5MG/ML 10ML VIAL 100 ML IV PRN ×5 (02:19→22:00)
[2020-12-18] MEDS: FUROSEMIDE INJ 100 MG in SODIUM CHLORIDE 0.9% 100 ML 90 ML IV SCH ×3 (03:01→16:34)
[2020-12-18 06:06] LABS: BASOPHILS # (AUTO) 0.1 (0.0-0.1); BASOPHILS % 0.7 % (0.0-1.0); EOSINOPHILS # (AUTO) 0.5 (0.0-0.4); EOSINOPHILS % 2.6 % (0.0-6.0); HEMATOCRIT 25.4 % (34.2-44.1); HEMOGLOBIN 7.8 g/dL (12.0-16.0); LYMPHOCYTES # (AUTO) 1.9 (1.0-3.2); LYMPHOCYTES % 10.4 % (18.0-39.1); MEAN CORPUSCULAR HGB CONC 30.7 g/dL (31-35); MEAN CORPUSCULAR VOLUME 104.1 fL (81-99); MONOCYTES # (AUTO) 1.4 (0.2-0.8); MONOCYTES % 7.6 % (4.4-11.3); NEUTROPHILS # (AUTO) 13.3 (2.1-6.9); NEUTROPHILS % 74.1 % (38.7-80.0); PLATELET COUNT 422 x10e3/uL (140-360); RED BLOOD COUNT 2.44 x10e6/uL (3.6-5.1); RED CELL DISTRIBUTION WIDTH 15.9 % (11.7-14.4)
[2020-12-18] MEDS: MEROPENEM 1 GM in SODIUM CHLORIDE 0.9% 100 ML IV SCH ×3 (06:12→20:42)
[2020-12-18] MEDS: METOCLOPRAMIDE HCL 10 MG/2ML VIAL IV SCH ×3 (06:12→21:58)
[2020-12-18 06:41] LABS: ALBUMIN/GLOBULIN RATIO 0.8 (0.8-2.0); ANION GAP 11.7 mmol/L (8-16); CALCIUM 8.3 mg/dL (8.4-10.2); CREATININE, SERUM 0.54 mg/dL (0.57-1.11)
[2020-12-18 06:44] LABS: POTASSIUM 2.7 mmol/L (3.5-5.1)
[2020-12-18] MEDS: FENTANYL 2000MCG/NS 250 250 ML IV PRN ×2 (07:13→11:04)
[2020-12-18] MEDS ORDERED: POTASSIUM CHLORIDE 20MEQ/100ML 200 ML IV ONE ×2 (08:30→18:00)
[2020-12-18 09:09] LABS: ABG PCO2 95 mmHg (35-45); ABG PH 7.32 (7.35-7.45)
[2020-12-18 09:10] LABS: ABG HCO3 49 mmol/L (22-26); ABG PO2 56 mmHg (80-105); ABG TCO2 > 50
[2020-12-18] MEDS: ZINC SULFATE 220 MG CAP PO SCH (09:32)
[2020-12-18] MEDS: ASCORBIC ACID 500 MG TAB PO SCH ×2 (09:32→16:36)
[2020-12-18] MEDS: DOCUSATE SODIUM LIQD 100 MG/10 ML UDC NG SCH ×2 (09:32→16:36)
[2020-12-18] MEDS: FLUCONAZOLE 200 MG/100 ML 100 ML IV SCH (09:32)
[2020-12-18] MEDS: ENOXAPARIN INJ 80 MG/0.8 ML SYR SC SCH ×2 (09:32→20:41)
[2020-12-18] MEDS: Vancomycin IV 1 GM in SODIUM CHLORIDE 0.9% 250ML 250 ML IV SCH ×2 (10:45→21:58)
[2020-12-18] MEDS: PANTOPRAZOLE SODIUM 40 MG SUSPDR.PKT PO SCH (11:03)
[2020-12-18] MEDS: CHLOROTHIAZIDE SODIUM 500 MG VIAL IV SCH (20:40)
[2020-12-19] VITALS (25 sets, daily range): BP systolic 92–158; BP diastolic 54–71
[2020-12-19] MEDS: FENTANYL 2000MCG/NS 250 250 ML IV PRN ×4 (01:35→21:20)
[2020-12-19] MEDS: MIDAZOLAM HCL 5MG/ML 10ML VIAL 100 ML IV PRN ×4 (02:37→23:18)
[2020-12-19] MEDS: PROPOFOL IV EMULSION 10MG/ML 100 ML IV PRN ×2 (04:30→15:07)
[2020-12-19] MEDS ORDERED: POTASSIUM CHLORIDE 20MEQ/100ML 200 ML IV ONE ×2 (06:00→10:30)
[2020-12-19] MEDS: MEROPENEM 1 GM in SODIUM CHLORIDE 0.9% 100 ML IV SCH ×3 (06:14→21:18)
[2020-12-19] MEDS: METOCLOPRAMIDE HCL 10 MG/2ML VIAL IV SCH ×3 (06:14→21:18)
[2020-12-19 06:31] LABS: BASOPHILS # (AUTO) 0.2 (0.0-0.1); BASOPHILS % 1.1 % (0.0-1.0); EOSINOPHILS % 4.9 % (0.0-6.0); HEMOGLOBIN 8.3 g/dL (12.0-16.0); LYMPHOCYTES # (AUTO) 2.5 (1.0-3.2); LYMPHOCYTES % 12.2 % (18.0-39.1); MEAN CORPUSCULAR HEMOGLOBIN 29.2 pg (28-32); MEAN CORPUSCULAR HGB CONC 28.6 g/dL (31-35); MEAN CORPUSCULAR VOLUME 102.1 fL (81-99); MONOCYTES # (AUTO) 1.3 (0.2-0.8); MONOCYTES % 6.5 % (4.4-11.3); NEUTROPHILS # (AUTO) 13.7 (2.1-6.9); NEUTROPHILS % 67.7 % (38.7-80.0); PLATELET COUNT 437 x10e3/uL (140-360); RED BLOOD COUNT 2.84 x10e6/uL (3.6-5.1); RED CELL DISTRIBUTION WIDTH 15.1 % (11.7-14.4)
[2020-12-19] MEDS: ROCURONIUM 1250MG/NS 250 250 ML IV PRN (06:55)
[2020-12-19 07:10] LABS: ALBUMIN 2.9 g/dL (3.5-5.0); ALBUMIN/GLOBULIN RATIO 0.8 (0.8-2.0); CALCIUM 9.4 mg/dL (8.4-10.2); CREATININE, SERUM 0.51 mg/dL (0.57-1.11); POTASSIUM 3.3 mmol/L (3.5-5.1)
[2020-12-19 07:54] LABS: ANION GAP 13.3 mmol/L (8-16)
[2020-12-19] MEDS ORDERED: POTASSIUM CHLORIDE 20MEQ/15ML UDC NG SCH (09:00)
[2020-12-19 09:27] LABS: ABG HCO3 56 mmol/L (22-26); ABG PCO2 90 mmHg (35-45); ABG PO2 57 mmHg (80-105); ABG TCO2 > 50
[2020-12-19] MEDS ORDERED: ACETAZOLAMIDE SODIUM 500 MG/VIAL IV ONE (10:15)
[2020-12-19] MEDS: KCL 20 MEQ PACKET/ ORAL SOLN NG SCH (10:47)
[2020-12-19] MEDS: ZINC SULFATE 220 MG CAP PO SCH (10:47)
[2020-12-19] MEDS: DOCUSATE SODIUM LIQD 100 MG/10 ML UDC NG SCH ×2 (10:47→17:07)
[2020-12-19] MEDS: PANTOPRAZOLE SODIUM 40 MG SUSPDR.PKT PO SCH (10:47)
[2020-12-19] MEDS: ASCORBIC ACID 500 MG TAB PO SCH ×2 (10:47→17:07)
[2020-12-19] MEDS: Vancomycin IV 1 GM in SODIUM CHLORIDE 0.9% 250ML 250 ML IV SCH ×2 (10:48→21:18)
[2020-12-19] MEDS: FLUCONAZOLE 200 MG/100 ML 100 ML IV SCH (10:48)
[2020-12-19] MEDS: CHLOROTHIAZIDE SODIUM 500 MG VIAL IV SCH (12:00)
[2020-12-19] MEDS: FUROSEMIDE INJ 100 MG in SODIUM CHLORIDE 0.9% 100 ML 90 ML IV SCH (15:06)
[2020-12-19] MEDS: LACTULOSE SYRUP 20 GM/30 ML UDC PO PRN (15:09)
[2020-12-19] MEDS: ENOXAPARIN INJ 80 MG/0.8 ML SYR SC SCH (20:46)
[2020-12-20] VITALS (24 sets, daily range): BP systolic 89–128; BP diastolic 52–66
[2020-12-20] MEDS: PROPOFOL IV EMULSION 10MG/ML 100 ML IV PRN ×5 (00:59→20:43)
[2020-12-20] MEDS: FENTANYL 2000MCG/NS 250 250 ML IV PRN ×3 (04:00→17:16)
[2020-12-20] MEDS: MIDAZOLAM HCL 5MG/ML 10ML VIAL 100 ML IV PRN ×5 (04:36→20:14)
[2020-12-20] MEDS: MEROPENEM 1 GM in SODIUM CHLORIDE 0.9% 100 ML IV SCH ×3 (05:31→21:42)
[2020-12-20] MEDS: METOCLOPRAMIDE HCL 10 MG/2ML VIAL IV SCH ×3 (05:31→21:42)
[2020-12-20 05:46] LABS: BASOPHILS # (AUTO) 0.2 (0.0-0.1); BASOPHILS % 0.9 % (0.0-1.0); EOSINOPHILS # (AUTO) 1.1 (0.0-0.4); EOSINOPHILS % 5.7 % (0.0-6.0); HEMATOCRIT 27.5 % (34.2-44.1); LYMPHOCYTES % 10.1 % (18.0-39.1); MEAN CORPUSCULAR HEMOGLOBIN 29.6 pg (28-32); MEAN CORPUSCULAR HGB CONC 29.1 g/dL (31-35); MEAN CORPUSCULAR VOLUME 101.9 fL (81-99); MONOCYTES % 5.3 % (4.4-11.3); NEUTROPHILS # (AUTO) 13.4 (2.1-6.9); NEUTROPHILS % 68.8 % (38.7-80.0); PLATELET COUNT 404 x10e3/uL (140-360); RED CELL DISTRIBUTION WIDTH 15.6 % (11.7-14.4)
[2020-12-20 06:08] LABS: ALBUMIN 2.4 g/dL (3.5-5.0); ALBUMIN/GLOBULIN RATIO 0.6 (0.8-2.0); ANION GAP 13.2 mmol/L (8-16); CALCIUM 8.5 mg/dL (8.4-10.2); CREATININE, SERUM 0.5 mg/dL (0.57-1.11); POTASSIUM 3.2 mmol/L (3.5-5.1)
[2020-12-20 09:08] LABS: ABG HCO3 51 mmol/L (22-26); ABG PCO2 90 mmHg (35-45); ABG PH 7.36 (7.35-7.45); ABG PO2 56 mmHg (80-105); ABG TCO2 > 50
[2020-12-20] MEDS: CHLOROTHIAZIDE SODIUM 500 MG VIAL IV SCH (09:11)
[2020-12-20] MEDS: FUROSEMIDE INJ 100 MG in SODIUM CHLORIDE 0.9% 100 ML 90 ML IV SCH (10:56)
[2020-12-20] MEDS: ASCORBIC ACID 500 MG TAB PO SCH (10:56)
[2020-12-20] MEDS: PANTOPRAZOLE SODIUM 40 MG SUSPDR.PKT PO SCH (10:56)
[2020-12-20] MEDS: ZINC SULFATE 220 MG CAP PO SCH (10:56)
[2020-12-20] MEDS: ENOXAPARIN INJ 80 MG/0.8 ML SYR SC SCH ×2 (10:56→20:42)
[2020-12-20] MEDS: KCL 20 MEQ PACKET/ ORAL SOLN NG SCH (10:56)
[2020-12-20] MEDS: DOCUSATE SODIUM LIQD 100 MG/10 ML UDC NG SCH ×2 (10:56→17:15)
[2020-12-20] MEDS: FLUCONAZOLE 200 MG/100 ML 100 ML IV SCH (11:32)
[2020-12-20] MEDS: Vancomycin IV 1 GM in SODIUM CHLORIDE 0.9% 250ML 250 ML IV SCH ×2 (11:32→22:41)
[2020-12-21] VITALS (26 sets, daily range): BP systolic 76–133; BP diastolic 44–89
[2020-12-21] MEDS: FENTANYL 2000MCG/NS 250 250 ML IV PRN ×3 (00:12→21:00)
[2020-12-21] MEDS: MIDAZOLAM HCL 5MG/ML 10ML VIAL 100 ML IV PRN ×3 (00:13→23:02)
[2020-12-21] MEDS: FUROSEMIDE INJ 100 MG in SODIUM CHLORIDE 0.9% 100 ML 90 ML IV SCH ×2 (00:41→08:00)
[2020-12-21] MEDS: PROPOFOL IV EMULSION 10MG/ML 100 ML IV PRN ×3 (01:20→21:09)
[2020-12-21] MEDS: METOCLOPRAMIDE HCL 10 MG/2ML VIAL IV SCH ×3 (05:09→21:09)
[2020-12-21] MEDS: MEROPENEM 1 GM in SODIUM CHLORIDE 0.9% 100 ML IV SCH ×3 (05:09→21:09)
[2020-12-21 06:02] LABS: BASOPHILS # (AUTO) 0.1 (0.0-0.1); BASOPHILS % 0.7 % (0.0-1.0); EOSINOPHILS # (AUTO) 1.1 (0.0-0.4); EOSINOPHILS % 6.1 % (0.0-6.0); HEMATOCRIT 28.2 % (34.2-44.1); HEMOGLOBIN 8.2 g/dL (12.0-16.0); LYMPHOCYTES # (AUTO) 2.4 (1.0-3.2); LYMPHOCYTES % 13.4 % (18.0-39.1); MEAN CORPUSCULAR HEMOGLOBIN 29.3 pg (28-32); MEAN CORPUSCULAR HGB CONC 29.1 g/dL (31-35); MEAN CORPUSCULAR VOLUME 100.7 fL (81-99); MONOCYTES # (AUTO) 1.1 (0.2-0.8); NEUTROPHILS # (AUTO) 11.5 (2.1-6.9); NEUTROPHILS % 64.5 % (38.7-80.0); PLATELET COUNT 428 x10e3/uL (140-360); RED CELL DISTRIBUTION WIDTH 15.4 % (11.7-14.4)
[2020-12-21 06:23] LABS: ALBUMIN 2.2 g/dL (3.5-5.0); ALBUMIN/GLOBULIN RATIO 0.6 (0.8-2.0); ANION GAP 12.2 mmol/L (8-16); CALCIUM 8.4 mg/dL (8.4-10.2); CREATININE, SERUM 0.45 mg/dL (0.57-1.11); POTASSIUM 3.2 mmol/L (3.5-5.1)
[2020-12-21 07:30] LABS: BAND NEUTROPHILS % (MANUAL) 2 %; EOSINOPHILS % (MANUAL) 4 % (0-7); LYMPHOCYTES % (MANUAL) 10 % (19-48); MONOCYTES % (MANUAL) 5 % (3.4-9.0); MYELOCYTES % (MANUAL) 4 % (0-0); NEUTROPHILS % (MANUAL) 75 % (40-74)
[2020-12-21 07:31] LABS: HYPOCHROMASIA SLIGHT; PLATELET ESTIMATE SLIGHTLY INCREASED; PLATELET MORPHOLOGY COMMENT NORMAL; RBC MORPHOLOGY COMMENT NORMAL
[2020-12-21] MEDS ORDERED: ALBUMIN 25% 25GM 100ML 0.25 GM/ML BTL IV SCH (08:00)
[2020-12-21] MEDS: ENOXAPARIN INJ 80 MG/0.8 ML SYR SC SCH ×2 (09:00→21:08)
[2020-12-21] MEDS: CHLOROTHIAZIDE SODIUM 500 MG VIAL IV SCH (09:00)
[2020-12-21] MEDS: DOCUSATE SODIUM LIQD 100 MG/10 ML UDC NG SCH ×2 (09:00→16:32)
[2020-12-21] MEDS: KCL 20 MEQ PACKET/ ORAL SOLN NG SCH (09:00)
[2020-12-21] MEDS: PANTOPRAZOLE SODIUM 40 MG SUSPDR.PKT PO SCH (09:00)
[2020-12-21 09:03] LABS: ABG HCO3 53 mmol/L (22-26); ABG PCO2 95 mmHg (35-45); ABG PH 7.36 (7.35-7.45); ABG PO2 59 mmHg (80-105); ABG TCO2 > 50
[2020-12-21] MEDS: FLUCONAZOLE 200 MG/100 ML 100 ML IV SCH (10:45)
[2020-12-21] MEDS: Vancomycin IV 1 GM in SODIUM CHLORIDE 0.9% 250ML 250 ML IV SCH ×2 (10:45→22:27)
[2020-12-21] MEDS: ALBUMIN 25% 25GM 100ML 100 ML IV SCH ×3 (14:00→21:09)
[2020-12-21] MEDS ORDERED: POTASSIUM CHLORIDE 20MEQ/100ML 100 ML IV ONE (14:15)
[2020-12-21] MEDS ORDERED: VECURONIUM BROMIDE FOR INJ 20 MG VIAL ONE (15:26)
[2020-12-21] MEDS ORDERED: SODIUM CHLORIDE 0.9% 1000ML 1,000 ML ONE (18:02)
[2020-12-21] MEDS ORDERED: HEPARIN SOD (PORCINE) 1000 UNIT/ML SDV ONE (18:02)
[2020-12-21] MEDS ORDERED: ALBUMIN 25% 25GM 100ML 0.25 GM/ML BTL IV ONE (23:30)
[2020-12-21] MEDS: NOREPINEPHRINE 8 MG/D5W 250 ML 250 ML IV SCH (23:30)
[2020-12-21] MEDS ORDERED: ALBUMIN 25% 12.5GM 50ML 100 ML IV ONE (23:35)
[2020-12-21] MEDS ORDERED: NOREPINEPHRINE 8 MG/D5W 250 ML 250 ML ONE (23:41)
[2020-12-22] VITALS (25 sets, daily range): BP systolic 85–129; BP diastolic 46–64
[2020-12-22] MEDS: ROCURONIUM 1250MG/NS 250 250 ML IV PRN ×3 (00:15→21:51)
[2020-12-22] MEDS: PROPOFOL IV EMULSION 10MG/ML 100 ML IV PRN ×4 (00:15→20:44)
[2020-12-22] MEDS: MIDAZOLAM HCL 5MG/ML 10ML VIAL 100 ML IV PRN ×5 (03:00→21:53)
[2020-12-22] MEDS: FENTANYL 2000MCG/NS 250 250 ML IV PRN ×3 (04:00→14:00)
[2020-12-22] MEDS: METOCLOPRAMIDE HCL 10 MG/2ML VIAL IV SCH ×3 (05:40→21:51)
[2020-12-22] MEDS: MEROPENEM 1 GM in SODIUM CHLORIDE 0.9% 100 ML IV SCH ×3 (05:40→21:51)
[2020-12-22 06:25] LABS: BASOPHILS # (AUTO) 0.1 (0.0-0.1); BASOPHILS % 0.6 % (0.0-1.0); EOSINOPHILS # (AUTO) 0.4 (0.0-0.4); EOSINOPHILS % 2.6 % (0.0-6.0); HEMATOCRIT 24.4 % (34.2-44.1); HEMOGLOBIN 7.5 g/dL (12.0-16.0); LYMPHOCYTES # (AUTO) 2.1 (1.0-3.2); LYMPHOCYTES % 12.5 % (18.0-39.1); MEAN CORPUSCULAR HEMOGLOBIN 30.6 pg (28-32); MEAN CORPUSCULAR HGB CONC 30.7 g/dL (31-35); MEAN CORPUSCULAR VOLUME 99.6 fL (81-99); MONOCYTES # (AUTO) 0.9 (0.2-0.8); MONOCYTES % 5.3 % (4.4-11.3); NEUTROPHILS # (AUTO) 11.9 (2.1-6.9); NEUTROPHILS % 70.1 % (38.7-80.0); PLATELET COUNT 399 x10e3/uL (140-360); RED BLOOD COUNT 2.45 x10e6/uL (3.6-5.1); RED CELL DISTRIBUTION WIDTH 15.8 % (11.7-14.4)
[2020-12-22 07:19] LABS: ALBUMIN 3.3 g/dL (3.5-5.0); ALBUMIN/GLOBULIN RATIO 0.9 (0.8-2.0); ANION GAP 12.4 mmol/L (8-16); CALCIUM 9.4 mg/dL (8.4-10.2); CREATININE, SERUM 0.48 mg/dL (0.57-1.11); POTASSIUM 3.4 mmol/L (3.5-5.1)
[2020-12-22 08:47] LABS: ABG PH 7.36 (7.35-7.45)
[2020-12-22 08:48] LABS: ABG HCO3 55 mmol/L (22-26); ABG PCO2 98 mmHg (35-45); ABG PO2 61 mmHg (80-105); ABG TCO2 > 50
[2020-12-22] MEDS: CHLOROTHIAZIDE SODIUM 500 MG VIAL IV SCH (09:00)
[2020-12-22] MEDS: PANTOPRAZOLE SODIUM 40 MG SUSPDR.PKT PO SCH (09:00)
[2020-12-22] MEDS: ENOXAPARIN INJ 80 MG/0.8 ML SYR SC SCH ×2 (09:00→20:41)
[2020-12-22] MEDS: DOCUSATE SODIUM LIQD 100 MG/10 ML UDC NG SCH ×2 (09:00→17:00)
[2020-12-22] MEDS: FLUCONAZOLE 200 MG/100 ML 100 ML IV SCH (09:33)
[2020-12-22] MEDS: Vancomycin IV 1 GM in SODIUM CHLORIDE 0.9% 250ML 250 ML IV SCH ×2 (09:33→23:34)
[2020-12-22] MEDS ORDERED: SODIUM CHLORIDE 0.9% 1000ML 1,000 ML ONE (10:55)
[2020-12-22] MEDS ORDERED: HEPARIN SOD (PORCINE) 1000 UNIT/ML SDV ONE (14:01)
[2020-12-22] MEDS: NOREPINEPHRINE 8 MG/D5W 250 ML 250 ML IV SCH (23:30)
[2020-12-23] VITALS (29 sets, daily range): BP systolic 97–122; BP diastolic 31–68
[2020-12-23] MEDS: PROPOFOL IV EMULSION 10MG/ML 100 ML IV PRN ×5 (00:45→21:53)
[2020-12-23] MEDS: FENTANYL 2000MCG/NS 250 250 ML IV PRN ×4 (01:09→21:52)
[2020-12-23] MEDS: METOCLOPRAMIDE HCL 10 MG/2ML VIAL IV SCH ×3 (05:07→21:51)
[2020-12-23] MEDS: MEROPENEM 1 GM in SODIUM CHLORIDE 0.9% 100 ML IV SCH ×3 (05:07→21:51)
[2020-12-23 06:48] LABS: BASOPHILS # (AUTO) 0.1 (0.0-0.1); BASOPHILS % 0.9 % (0.0-1.0); EOSINOPHILS % 6.5 % (0.0-6.0); HEMATOCRIT 27.8 % (34.2-44.1); LYMPHOCYTES # (AUTO) 1.8 (1.0-3.2); LYMPHOCYTES % 11.8 % (18.0-39.1); MEAN CORPUSCULAR HGB CONC 28.8 g/dL (31-35); MEAN CORPUSCULAR VOLUME 100.7 fL (81-99); MONOCYTES % 6.8 % (4.4-11.3); NEUTROPHILS % 65.3 % (38.7-80.0); PLATELET COUNT 423 x10e3/uL (140-360); RED BLOOD COUNT 2.76 x10e6/uL (3.6-5.1); RED CELL DISTRIBUTION WIDTH 16.4 % (11.7-14.4)
[2020-12-23 07:12] LABS: ALBUMIN 2.8 g/dL (3.5-5.0); ALBUMIN/GLOBULIN RATIO 0.7 (0.8-2.0); ANION GAP 12.3 mmol/L (8-16); CREATININE, SERUM 0.44 mg/dL (0.57-1.11); POTASSIUM 3.3 mmol/L (3.5-5.1)
[2020-12-23] MEDS: MIDAZOLAM HCL 5MG/ML 10ML VIAL 100 ML IV PRN ×3 (07:29→19:30)
[2020-12-23 07:47] LABS: ABG PCO2 95 mmHg (35-45); ABG PH 7.32 (7.35-7.45)
[2020-12-23 07:48] LABS: ABG HCO3 49 mmol/L (22-26); ABG PO2 65 mmHg (80-105); ABG TCO2 50
[2020-12-23] MEDS: ENOXAPARIN INJ 80 MG/0.8 ML SYR SC SCH ×2 (08:34→21:51)
[2020-12-23] MEDS: CHLOROTHIAZIDE SODIUM 500 MG VIAL IV SCH (08:34)
[2020-12-23] MEDS: PANTOPRAZOLE SODIUM 40 MG SUSPDR.PKT PO SCH (08:34)
[2020-12-23] MEDS: DOCUSATE SODIUM LIQD 100 MG/10 ML UDC NG SCH ×2 (08:34→16:10)
[2020-12-23] MEDS: FLUCONAZOLE 200 MG/100 ML 100 ML IV SCH (09:51)
[2020-12-23] MEDS ORDERED: POTASSIUM CHLORIDE 20MEQ/100ML 200 ML IV ONE (10:30)
[2020-12-23] MEDS: Vancomycin IV 1 GM in SODIUM CHLORIDE 0.9% 250ML 250 ML IV SCH ×2 (11:36→22:55)
[2020-12-23] MEDS: ROCURONIUM 1250MG/NS 250 250 ML IV PRN (17:21)
[2020-12-24] VITALS (27 sets, daily range): BP systolic 95–143; BP diastolic 50–70
[2020-12-24] MEDS: PROPOFOL IV EMULSION 10MG/ML 100 ML IV PRN ×5 (01:22→20:56)
[2020-12-24] MEDS: FENTANYL 2000MCG/NS 250 250 ML IV PRN ×3 (04:41→17:13)
[2020-12-24] MEDS: MEROPENEM 1 GM in SODIUM CHLORIDE 0.9% 100 ML IV SCH ×2 (05:43→14:00)
[2020-12-24] MEDS: METOCLOPRAMIDE HCL 10 MG/2ML VIAL IV SCH ×3 (05:43→22:06)
[2020-12-24] MEDS: MIDAZOLAM HCL 5MG/ML 10ML VIAL 100 ML IV PRN ×5 (05:44→22:07)
[2020-12-24 05:52] LABS: BASOPHILS # (AUTO) 0.1 (0.0-0.1); BASOPHILS % 0.9 % (0.0-1.0); EOSINOPHILS % 7.1 % (0.0-6.0); HEMATOCRIT 26.2 % (34.2-44.1); HEMOGLOBIN 7.9 g/dL (12.0-16.0); LYMPHOCYTES # (AUTO) 2.2 (1.0-3.2); LYMPHOCYTES % 15.9 % (18.0-39.1); MEAN CORPUSCULAR HEMOGLOBIN 30.4 pg (28-32); MEAN CORPUSCULAR HGB CONC 30.2 g/dL (31-35); MEAN CORPUSCULAR VOLUME 100.8 fL (81-99); MONOCYTES % 7.2 % (4.4-11.3); NEUTROPHILS # (AUTO) 8.2 (2.1-6.9); NEUTROPHILS % 60.2 % (38.7-80.0); PLATELET COUNT 382 x10e3/uL (140-360); RED CELL DISTRIBUTION WIDTH 17.2 % (11.7-14.4)
[2020-12-24 06:36] LABS: ALBUMIN 2.7 g/dL (3.5-5.0); ALBUMIN/GLOBULIN RATIO 0.7 (0.8-2.0); ANION GAP 12.2 mmol/L (8-16); CALCIUM 9.1 mg/dL (8.4-10.2); CREATININE, SERUM 0.45 mg/dL (0.57-1.11); POTASSIUM 4.2 mmol/L (3.5-5.1)
[2020-12-24] MEDS ORDERED: NOREPINEPHRINE 8 MG/D5W 250 ML 250 ML IV PRN (07:30)
[2020-12-24] MEDS: KCL 20 MEQ PACKET/ ORAL SOLN PO SCH (08:25)
[2020-12-24] MEDS: DOCUSATE SODIUM LIQD 100 MG/10 ML UDC NG SCH ×2 (08:25→16:53)
[2020-12-24] MEDS: ENOXAPARIN INJ 80 MG/0.8 ML SYR SC SCH ×2 (08:25→22:06)
[2020-12-24] MEDS: PANTOPRAZOLE SODIUM 40 MG SUSPDR.PKT PO SCH (08:25)
[2020-12-24 08:52] LABS: ABG PH 7.31 (7.35-7.45)
[2020-12-24 08:53] LABS: ABG HCO3 44 mmol/L (22-26); ABG PCO2 87 mmHg (35-45); ABG PO2 71 mmHg (80-105); ABG TCO2 47
[2020-12-24] MEDS ORDERED: POTASSIUM CHLORIDE 20 MEQ TAB CR PO SCH (09:00)
[2020-12-24] MEDS: FLUCONAZOLE 200 MG/100 ML 100 ML IV SCH ×2 (10:39→14:56)
[2020-12-24] MEDS: Vancomycin IV 1 GM in SODIUM CHLORIDE 0.9% 250ML 250 ML IV SCH (10:39)
[2020-12-25] VITALS (25 sets, daily range): BP systolic 93–137; BP diastolic 50–64
[2020-12-25] MEDS: PROPOFOL IV EMULSION 10MG/ML 100 ML IV PRN ×5 (00:11→20:28)
[2020-12-25] MEDS: FENTANYL 2000MCG/NS 250 250 ML IV PRN ×3 (00:18→21:09)
[2020-12-25] MEDS: MIDAZOLAM HCL 5MG/ML 10ML VIAL 100 ML IV PRN ×3 (02:30→12:44)
[2020-12-25] MEDS: METOCLOPRAMIDE HCL 10 MG/2ML VIAL IV SCH ×3 (05:26→21:02)
[2020-12-25 06:08] LABS: BASOPHILS # (AUTO) 0.2 (0.0-0.1); BASOPHILS % 1.2 % (0.0-1.0); EOSINOPHILS # (AUTO) 0.7 (0.0-0.4); EOSINOPHILS % 4.7 % (0.0-6.0); HEMATOCRIT 26.9 % (34.2-44.1); HEMOGLOBIN 7.7 g/dL (12.0-16.0); LYMPHOCYTES # (AUTO) 2.3 (1.0-3.2); LYMPHOCYTES % 14.7 % (18.0-39.1); MEAN CORPUSCULAR HEMOGLOBIN 29.7 pg (28-32); MEAN CORPUSCULAR HGB CONC 28.6 g/dL (31-35); MEAN CORPUSCULAR VOLUME 103.9 fL (81-99); MONOCYTES # (AUTO) 1.2 (0.2-0.8); MONOCYTES % 7.6 % (4.4-11.3); NEUTROPHILS # (AUTO) 9.8 (2.1-6.9); PLATELET COUNT 428 x10e3/uL (140-360); RED BLOOD COUNT 2.59 x10e6/uL (3.6-5.1); RED CELL DISTRIBUTION WIDTH 17.5 % (11.7-14.4)
[2020-12-25 06:39] LABS: ALBUMIN 2.5 g/dL (3.5-5.0); ALBUMIN/GLOBULIN RATIO 0.6 (0.8-2.0); ANION GAP 11.4 mmol/L (8-16); CALCIUM 9.2 mg/dL (8.4-10.2); CREATININE, SERUM 0.44 mg/dL (0.57-1.11); POTASSIUM 4.4 mmol/L (3.5-5.1)
[2020-12-25] MEDS: KCL 20 MEQ PACKET/ ORAL SOLN PO SCH (08:28)
[2020-12-25 08:30] LABS: ABG PCO2 84 mmHg (35-45); ABG PO2 49 mmHg (80-105)
[2020-12-25 08:31] LABS: ABG HCO3 41 mmol/L (22-26); ABG TCO2 44
[2020-12-25] MEDS: PANTOPRAZOLE SODIUM 40 MG SUSPDR.PKT PO SCH (10:18)
[2020-12-25] MEDS: ENOXAPARIN INJ 80 MG/0.8 ML SYR SC SCH ×2 (10:18→20:51)
[2020-12-25] MEDS: FLUCONAZOLE 200 MG/100 ML 100 ML IV SCH (10:18)
[2020-12-25] MEDS: DOCUSATE SODIUM LIQD 100 MG/10 ML UDC NG SCH ×2 (10:18→17:12)
[2020-12-25] MEDS ORDERED: HEPARIN SOD (PORCINE) 1000 UNIT/ML SDV ONE (16:53)
[2020-12-26] VITALS (24 sets, daily range): BP systolic 91–138; BP diastolic 41–63
[2020-12-26] MEDS: MIDAZOLAM HCL 5MG/ML 10ML VIAL 100 ML IV PRN ×4 (00:28→22:35)
[2020-12-26] MEDS: PROPOFOL IV EMULSION 10MG/ML 100 ML IV PRN ×4 (00:28→20:56)
[2020-12-26] MEDS: FENTANYL 2000MCG/NS 250 250 ML IV PRN ×3 (04:26→18:27)
[2020-12-26] MEDS: METOCLOPRAMIDE HCL 10 MG/2ML VIAL IV SCH ×3 (05:20→21:04)
[2020-12-26 06:09] LABS: BASOPHILS # (AUTO) 0.1 (0.0-0.1); BASOPHILS % 0.8 % (0.0-1.0); EOSINOPHILS # (AUTO) 0.8 (0.0-0.4); EOSINOPHILS % 4.9 % (0.0-6.0); HEMATOCRIT 26.9 % (34.2-44.1); LYMPHOCYTES # (AUTO) 1.9 (1.0-3.2); LYMPHOCYTES % 11.6 % (18.0-39.1); MEAN CORPUSCULAR HEMOGLOBIN 31.3 pg (28-32); MEAN CORPUSCULAR HGB CONC 29.7 g/dL (31-35); MEAN CORPUSCULAR VOLUME 105.1 fL (81-99); MONOCYTES # (AUTO) 1.2 (0.2-0.8); MONOCYTES % 7.1 % (4.4-11.3); NEUTROPHILS # (AUTO) 11.3 (2.1-6.9); NEUTROPHILS % 69.5 % (38.7-80.0); PLATELET COUNT 414 x10e3/uL (140-360); RED BLOOD COUNT 2.56 x10e6/uL (3.6-5.1); RED CELL DISTRIBUTION WIDTH 19.4 % (11.7-14.4)
[2020-12-26] MEDS: ROCURONIUM 1250MG/NS 250 250 ML IV PRN (06:58)
[2020-12-26 07:04] LABS: ALBUMIN 2.5 g/dL (3.5-5.0); ALBUMIN/GLOBULIN RATIO 0.5 (0.8-2.0); ANION GAP 12.9 mmol/L (8-16); CALCIUM 8.9 mg/dL (8.4-10.2); CREATININE, SERUM 0.44 mg/dL (0.57-1.11); POTASSIUM 4.9 mmol/L (3.5-5.1)
[2020-12-26 08:25] LABS: BAND NEUTROPHILS % (MANUAL) 6 %; EOSINOPHILS % (MANUAL) 5 % (0-7); LYMPHOCYTES % (MANUAL) 4 % (19-48); METAMYELOCYTES % (MANUAL) 1 % (0-0); MONOCYTES % (MANUAL) 6 % (3.4-9.0); MYELOCYTES % (MANUAL) 2 % (0-0); NEUTROPHILS % (MANUAL) 73 % (40-74); NUCLEATED RED BLOOD CELLS 2; PLATELET ESTIMATE ADEQUATE; PLATELET MORPHOLOGY COMMENT FEW LARGE; PROMYELOCYTES % (MANUAL) 1 % (0-0); RBC MORPHOLOGY COMMENT NORMAL
[2020-12-26] MEDS: ENOXAPARIN INJ 80 MG/0.8 ML SYR SC SCH ×2 (09:00→20:56)
[2020-12-26] MEDS: DOCUSATE SODIUM LIQD 100 MG/10 ML UDC NG SCH ×2 (09:00→16:29)
[2020-12-26] MEDS: PANTOPRAZOLE SODIUM 40 MG SUSPDR.PKT PO SCH (09:00)
[2020-12-26 10:03] LABS: ABG PCO2 85 mmHg (35-45); ABG PH 7.27 (7.35-7.45)
[2020-12-26 10:04] LABS: ABG HCO3 39 mmol/L (22-26); ABG PO2 64 mmHg (80-105); ABG TCO2 41
[2020-12-26] MEDS ORDERED: HEPARIN SOD (PORCINE) 1000 UNIT/ML SDV ONE (17:46)
[2020-12-27] VITALS (25 sets, daily range): BP systolic 91–129; BP diastolic 48–59
[2020-12-27] MEDS: PROPOFOL IV EMULSION 10MG/ML 100 ML IV PRN ×5 (00:59→23:24)
[2020-12-27] MEDS: FENTANYL 2000MCG/NS 250 250 ML IV PRN ×2 (01:45→08:50)
[2020-12-27] MEDS: MIDAZOLAM HCL 5MG/ML 10ML VIAL 100 ML IV PRN ×2 (03:46→08:51)
[2020-12-27 05:44] LABS: BASOPHILS # (AUTO) 0.2 (0.0-0.1); BASOPHILS % 1.1 % (0.0-1.0); EOSINOPHILS # (AUTO) 0.6 (0.0-0.4); EOSINOPHILS % 4.4 % (0.0-6.0); HEMATOCRIT 26.9 % (34.2-44.1); HEMOGLOBIN 7.4 g/dL (12.0-16.0); MEAN CORPUSCULAR HEMOGLOBIN 29.1 pg (28-32); MEAN CORPUSCULAR HGB CONC 27.5 g/dL (31-35); MEAN CORPUSCULAR VOLUME 105.9 fL (81-99); MONOCYTES # (AUTO) 1.1 (0.2-0.8); MONOCYTES % 7.9 % (4.4-11.3); NEUTROPHILS # (AUTO) 9.6 (2.1-6.9); NEUTROPHILS % 66.4 % (38.7-80.0); PLATELET COUNT 408 x10e3/uL (140-360); RED BLOOD COUNT 2.54 x10e6/uL (3.6-5.1); RED CELL DISTRIBUTION WIDTH 18.6 % (11.7-14.4)
[2020-12-27] MEDS: METOCLOPRAMIDE HCL 10 MG/2ML VIAL IV SCH ×3 (05:44→22:13)
[2020-12-27 06:13] LABS: ALBUMIN 2.5 g/dL (3.5-5.0); ALBUMIN/GLOBULIN RATIO 0.5 (0.8-2.0); ANION GAP 11.1 mmol/L (8-16); CALCIUM 8.9 mg/dL (8.4-10.2); CREATININE, SERUM 0.43 mg/dL (0.57-1.11); POTASSIUM 5.1 mmol/L (3.5-5.1)
[2020-12-27 08:27] LABS: BAND NEUTROPHILS % (MANUAL) 2 %; EOSINOPHILS % (MANUAL) 3 % (0-7); LYMPHOCYTES % (MANUAL) 17 % (19-48); METAMYELOCYTES % (MANUAL) 5 % (0-0); MONOCYTES % (MANUAL) 4 % (3.4-9.0); MYELOCYTES % (MANUAL) 3 % (0-0); NEUTROPHILS % (MANUAL) 66 % (40-74); NUCLEATED RED BLOOD CELLS 2; RBC MORPHOLOGY COMMENT ABNORMAL
[2020-12-27 08:28] LABS: HYPOCHROMASIA SLIGHT; POIKILOCYTOSIS SLIGHT; POLYCHROMASIA FEW
[2020-12-27 08:29] LABS: ANISOCYTOSIS MODERATE; PLATELET ESTIMATE ADEQUATE; PLATELET MORPHOLOGY COMMENT NORMAL
[2020-12-27] MEDS: PANTOPRAZOLE SODIUM 40 MG SUSPDR.PKT PO SCH (09:00)
[2020-12-27] MEDS: ENOXAPARIN INJ 80 MG/0.8 ML SYR SC SCH ×2 (09:00→22:13)
[2020-12-27] MEDS: DOCUSATE SODIUM LIQD 100 MG/10 ML UDC NG SCH ×2 (09:00→17:00)
[2020-12-27 09:03] LABS: ABG PH 7.26 (7.35-7.45)
[2020-12-27 09:05] LABS: ABG HCO3 40 mmol/L (22-26); ABG PCO2 90 mmHg (35-45); ABG PO2 63 mmHg (80-105); ABG TCO2 43
[2020-12-27] MEDS ORDERED: SODIUM CHLORIDE 0.9% 250ML 500 ML IV PRN (09:45)
[2020-12-27] MEDS ORDERED: HEPARIN SOD (PORCINE) 1000 UNIT/ML SDV IV PRN (09:45)
[2020-12-27] MEDS ORDERED: SODIUM CHLORIDE 0.9% 1000ML 2,000 ML IV PRN (09:45)
[2020-12-28] VITALS (22 sets, daily range): BP systolic 96–130; BP diastolic 49–60
[2020-12-28] MEDS: PROPOFOL IV EMULSION 10MG/ML 100 ML IV PRN ×2 (03:36→06:55)
[2020-12-28] MEDS: MIDAZOLAM HCL 5MG/ML 10ML VIAL 100 ML IV PRN ×3 (04:50→22:05)
[2020-12-28] MEDS: METOCLOPRAMIDE HCL 10 MG/2ML VIAL IV SCH ×3 (05:23→21:18)
[2020-12-28] MEDS: FENTANYL 2000MCG/NS 250 250 ML IV PRN ×4 (05:23→18:34)
[2020-12-28 07:42] LABS: BASOPHILS # (AUTO) 0.1 (0.0-0.1); BASOPHILS % 0.9 % (0.0-1.0); EOSINOPHILS # (AUTO) 0.8 (0.0-0.4); EOSINOPHILS % 5.5 % (0.0-6.0); HEMOGLOBIN 7.4 g/dL (12.0-16.0); LYMPHOCYTES # (AUTO) 2.3 (1.0-3.2); LYMPHOCYTES % 15.2 % (18.0-39.1); MEAN CORPUSCULAR HEMOGLOBIN 29.5 pg (28-32); MEAN CORPUSCULAR HGB CONC 28.5 g/dL (31-35); MEAN CORPUSCULAR VOLUME 103.6 fL (81-99); MONOCYTES # (AUTO) 1.5 (0.2-0.8); MONOCYTES % 9.9 % (4.4-11.3); NEUTROPHILS # (AUTO) 9.5 (2.1-6.9); NEUTROPHILS % 63.2 % (38.7-80.0); PLATELET COUNT 374 x10e3/uL (140-360); RED BLOOD COUNT 2.51 x10e6/uL (3.6-5.1); RED CELL DISTRIBUTION WIDTH 18.9 % (11.7-14.4)
[2020-12-28 07:45] LABS: ALBUMIN 2.3 g/dL (3.5-5.0); ALBUMIN/GLOBULIN RATIO 0.5 (0.8-2.0); ANION GAP 12.2 mmol/L (8-16); CREATININE, SERUM 0.39 mg/dL (0.57-1.11); POTASSIUM 5.2 mmol/L (3.5-5.1)
[2020-12-28 09:05] LABS: ABG HCO3 39 mmol/L (22-26); ABG PCO2 79 mmHg (35-45); ABG PO2 62 mmHg (80-105); ABG TCO2 41
[2020-12-28] MEDS ORDERED: PROPOFOL IV EMULSION 100 ML IV ONE (09:45)
[2020-12-28] MEDS: DOCUSATE SODIUM LIQD 100 MG/10 ML UDC NG SCH ×2 (10:36→19:18)
[2020-12-28] MEDS: ENOXAPARIN INJ 80 MG/0.8 ML SYR SC SCH ×2 (10:36→21:18)
[2020-12-28] MEDS: PANTOPRAZOLE SODIUM 40 MG SUSPDR.PKT PO SCH (10:36)
[2020-12-28] MEDS ORDERED: FUROSEMIDE INJ 10 MG/ML 4 ML VIAL IV ONE (11:45)
[2020-12-28] MEDS: PROPOFOL IV EMULSION 50 ML IV PRN ×3 (12:00→22:56)
[2020-12-28] MEDS ORDERED: FUROSEMIDE INJ 10 MG/ML 4 ML VIAL ONE (14:18)
[2020-12-28 14:46] LABS: BAND NEUTROPHILS % (MANUAL) 2 %; EOSINOPHILS % (MANUAL) 8 % (0-7); LYMPHOCYTES % (MANUAL) 6 % (19-48); METAMYELOCYTES % (MANUAL) 1 % (0-0); MONOCYTES % (MANUAL) 9 % (3.4-9.0); MYELOCYTES % (MANUAL) 3 % (0-0); NEUTROPHILS % (MANUAL) 69 % (40-74); NUCLEATED RED BLOOD CELLS 2; RBC MORPHOLOGY COMMENT ABNORMAL
[2020-12-28 14:49] LABS: ANISOCYTOSIS MODERATE; PLATELET ESTIMATE ADEQUATE; PLATELET MORPHOLOGY COMMENT NORMAL; POLYCHROMASIA FEW
[2020-12-29] VITALS (29 sets, daily range): BP systolic 83–138; BP diastolic 42–56
[2020-12-29] MEDS: PROPOFOL IV EMULSION 50 ML IV PRN ×6 (02:28→16:47)
[2020-12-29] MEDS: MIDAZOLAM HCL 5MG/ML 10ML VIAL 100 ML IV PRN ×4 (03:45→22:26)
[2020-12-29] MEDS ORDERED: ACETAMINOPHEN 325 MG TAB PO PRN (05:00)
[2020-12-29] MEDS: METOCLOPRAMIDE HCL 10 MG/2ML VIAL IV SCH ×3 (06:06→22:03)
[2020-12-29 06:32] LABS: BASOPHILS # (AUTO) 0.1 (0.0-0.1); BASOPHILS % 0.9 % (0.0-1.0); EOSINOPHILS # (AUTO) 0.7 (0.0-0.4); EOSINOPHILS % 4.6 % (0.0-6.0); HEMATOCRIT 25.7 % (34.2-44.1); HEMOGLOBIN 7.3 g/dL (12.0-16.0); LYMPHOCYTES # (AUTO) 1.5 (1.0-3.2); MEAN CORPUSCULAR HEMOGLOBIN 29.6 pg (28-32); MEAN CORPUSCULAR HGB CONC 28.4 g/dL (31-35); MONOCYTES # (AUTO) 1.1 (0.2-0.8); MONOCYTES % 7.3 % (4.4-11.3); NEUTROPHILS # (AUTO) 11.5 (2.1-6.9); NEUTROPHILS % 74.3 % (38.7-80.0); PLATELET COUNT 402 x10e3/uL (140-360); RED BLOOD COUNT 2.47 x10e6/uL (3.6-5.1); RED CELL DISTRIBUTION WIDTH 19.2 % (11.7-14.4)
[2020-12-29 06:51] LABS: ALBUMIN 2.3 g/dL (3.5-5.0); ALBUMIN/GLOBULIN RATIO 0.5 (0.8-2.0); ANION GAP 12.2 mmol/L (8-16); CALCIUM 9.4 mg/dL (8.4-10.2); CREATININE, SERUM 0.46 mg/dL (0.57-1.11); POTASSIUM 4.2 mmol/L (3.5-5.1)
[2020-12-29] MEDS: FENTANYL 2000MCG/NS 250 250 ML IV PRN ×3 (08:25→22:36)
[2020-12-29] MEDS: PANTOPRAZOLE SODIUM 40 MG SUSPDR.PKT PO SCH (08:29)
[2020-12-29] MEDS: DOCUSATE SODIUM LIQD 100 MG/10 ML UDC NG SCH ×2 (08:29→16:47)
[2020-12-29] MEDS: ENOXAPARIN INJ 80 MG/0.8 ML SYR SC SCH ×2 (08:29→21:14)
[2020-12-29 08:31] LABS: ANISOCYTOSIS MODERATE; HYPOCHROMASIA MODERATE; PLATELET ESTIMATE ADEQUATE; PLATELET MORPHOLOGY COMMENT NORMAL; POLYCHROMASIA FEW; RBC MORPHOLOGY COMMENT ABNORMAL
[2020-12-29 09:21] LABS: ABG PCO2 84 mmHg (35-45); ABG PH 7.32 (7.35-7.45)
[2020-12-29 09:22] LABS: ABG HCO3 43 mmol/L (22-26); ABG PO2 43 mmHg (80-105); ABG TCO2 45
[2020-12-29] MEDS: PROPOFOL IV EMULSION 10MG/ML 100 ML IV PRN ×2 (20:41→23:04)
[2020-12-30] VITALS (26 sets, daily range): BP systolic 82–132; BP diastolic 48–82
[2020-12-30] MEDS: PROPOFOL IV EMULSION 10MG/ML 100 ML IV PRN ×7 (02:07→22:08)
[2020-12-30] MEDS: MIDAZOLAM HCL 5MG/ML 10ML VIAL 100 ML IV PRN ×4 (04:14→22:07)
[2020-12-30] MEDS: FENTANYL 2000MCG/NS 250 250 ML IV PRN ×2 (05:17→09:42)
[2020-12-30] MEDS: METOCLOPRAMIDE HCL 10 MG/2ML VIAL IV SCH ×3 (05:57→21:46)
[2020-12-30 06:06] LABS: BASOPHILS # (AUTO) 0.2 (0.0-0.1); BASOPHILS % 1.1 % (0.0-1.0); EOSINOPHILS # (AUTO) 0.7 (0.0-0.4); EOSINOPHILS % 4.8 % (0.0-6.0); HEMATOCRIT 25.7 % (34.2-44.1); HEMOGLOBIN 7.4 g/dL (12.0-16.0); LYMPHOCYTES # (AUTO) 1.9 (1.0-3.2); LYMPHOCYTES % 12.8 % (18.0-39.1); MEAN CORPUSCULAR HEMOGLOBIN 29.8 pg (28-32); MEAN CORPUSCULAR HGB CONC 28.8 g/dL (31-35); MEAN CORPUSCULAR VOLUME 103.6 fL (81-99); MONOCYTES # (AUTO) 1.4 (0.2-0.8); MONOCYTES % 9.6 % (4.4-11.3); NEUTROPHILS # (AUTO) 10.1 (2.1-6.9); NEUTROPHILS % 68.1 % (38.7-80.0); PLATELET COUNT 348 x10e3/uL (140-360); RED BLOOD COUNT 2.48 x10e6/uL (3.6-5.1); RED CELL DISTRIBUTION WIDTH 19.5 % (11.7-14.4)
[2020-12-30 06:28] LABS: ALBUMIN 2.3 g/dL (3.5-5.0); ALBUMIN/GLOBULIN RATIO 0.5 (0.8-2.0); ANION GAP 12.4 mmol/L (8-16); CALCIUM 10.1 mg/dL (8.4-10.2); CREATININE, SERUM 0.48 mg/dL (0.57-1.11); POTASSIUM 4.4 mmol/L (3.5-5.1)
[2020-12-30 08:01] LABS: ABG PCO2 89 mmHg (35-45); ABG PH 7.24 (7.35-7.45)
[2020-12-30 08:02] LABS: ABG HCO3 38 mmol/L (22-26); ABG PO2 61 mmHg (80-105); ABG TCO2 41
[2020-12-30] MEDS: DOCUSATE SODIUM LIQD 100 MG/10 ML UDC NG SCH ×2 (08:40→15:33)
[2020-12-30] MEDS: PANTOPRAZOLE SODIUM 40 MG SUSPDR.PKT PO SCH (08:41)
[2020-12-30] MEDS: ENOXAPARIN INJ 80 MG/0.8 ML SYR SC SCH ×2 (08:41→21:46)
[2020-12-30] MEDS: FENTANYL 2000MCG/NS 250 250 ML IV SCH (19:30)
[2020-12-31] VITALS (27 sets, daily range): BP systolic 100–137; BP diastolic 34–73
[2020-12-31] MEDS: PROPOFOL IV EMULSION 10MG/ML 100 ML IV PRN ×7 (00:43→21:59)
[2020-12-31] MEDS: MIDAZOLAM HCL 5MG/ML 10ML VIAL 100 ML IV PRN ×4 (03:38→19:20)
[2020-12-31 05:58] LABS: BASOPHILS # (AUTO) 0.2 (0.0-0.1); BASOPHILS % 1.1 % (0.0-1.0); EOSINOPHILS # (AUTO) 0.3 (0.0-0.4); EOSINOPHILS % 2.2 % (0.0-6.0); HEMATOCRIT 25.9 % (34.2-44.1); HEMOGLOBIN 7.4 g/dL (12.0-16.0); LYMPHOCYTES # (AUTO) 1.6 (1.0-3.2); MEAN CORPUSCULAR HEMOGLOBIN 29.4 pg (28-32); MEAN CORPUSCULAR HGB CONC 28.6 g/dL (31-35); MEAN CORPUSCULAR VOLUME 102.8 fL (81-99); MONOCYTES # (AUTO) 1.3 (0.2-0.8); MONOCYTES % 9.3 % (4.4-11.3); NEUTROPHILS # (AUTO) 10.4 (2.1-6.9); NEUTROPHILS % 72.2 % (38.7-80.0); PLATELET COUNT 394 x10e3/uL (140-360); RED BLOOD COUNT 2.52 x10e6/uL (3.6-5.1); RED CELL DISTRIBUTION WIDTH 19.2 % (11.7-14.4)
[2020-12-31] MEDS: METOCLOPRAMIDE HCL 10 MG/2ML VIAL IV SCH ×3 (06:00→22:00)
[2020-12-31 06:35] LABS: ALBUMIN 2.4 g/dL (3.5-5.0); ALBUMIN/GLOBULIN RATIO 0.5 (0.8-2.0); ANION GAP 14.4 mmol/L (8-16); CALCIUM 9.4 mg/dL (8.4-10.2); CREATININE, SERUM 0.46 mg/dL (0.57-1.11)
[2020-12-31 06:37] LABS: POTASSIUM 5.4 mmol/L (3.5-5.1)
[2020-12-31] MEDS: DOCUSATE SODIUM LIQD 100 MG/10 ML UDC NG SCH ×2 (08:52→17:24)
[2020-12-31] MEDS: PANTOPRAZOLE SODIUM 40 MG SUSPDR.PKT PO SCH (08:52)
[2020-12-31] MEDS: ENOXAPARIN INJ 80 MG/0.8 ML SYR SC SCH ×2 (08:52→21:00)
[2020-12-31] MEDS: FENTANYL 2000MCG/NS 250 250 ML IV SCH ×3 (08:54→22:30)
[2020-12-31 09:04] LABS: ABG PH 7.27 (7.35-7.45)
[2020-12-31 09:05] LABS: ABG HCO3 37 mmol/L (22-26); ABG PCO2 80 mmHg (35-45); ABG PO2 90 mmHg (80-105); ABG TCO2 39
[2020-12-31] MEDS: FUROSEMIDE INJ 100 MG in SODIUM CHLORIDE 0.9% 100 ML 90 ML IV SCH (15:37)
[2020-12-31] MEDS ORDERED: SOD POLYSTYRENE SULFONATE SUSP 15 GM/60 ML BTL NG ONE (16:30)
[2021-01-01] VITALS (26 sets, daily range): BP systolic 91–130; BP diastolic 48–66
[2021-01-01] MEDS: MIDAZOLAM HCL 5MG/ML 10ML VIAL 100 ML IV PRN ×5 (00:20→21:34)
[2021-01-01] MEDS: FUROSEMIDE INJ 100 MG in SODIUM CHLORIDE 0.9% 100 ML 90 ML IV SCH ×3 (01:00→12:48)
[2021-01-01] MEDS: PROPOFOL IV EMULSION 10MG/ML 100 ML IV PRN ×9 (02:48→23:49)
[2021-01-01] MEDS: FENTANYL 2000MCG/NS 250 250 ML IV SCH ×2 (05:30→20:38)
[2021-01-01] MEDS: METOCLOPRAMIDE HCL 10 MG/2ML VIAL IV SCH ×3 (06:38→21:28)
[2021-01-01 06:42] LABS: BASOPHILS # (AUTO) 0.1 (0.0-0.1); BASOPHILS % 1.3 % (0.0-1.0); EOSINOPHILS # (AUTO) 0.8 (0.0-0.4); EOSINOPHILS % 7.9 % (0.0-6.0); HEMATOCRIT 26.5 % (34.2-44.1); HEMOGLOBIN 7.6 g/dL (12.0-16.0); LYMPHOCYTES # (AUTO) 1.6 (1.0-3.2); LYMPHOCYTES % 16.4 % (18.0-39.1); MEAN CORPUSCULAR HEMOGLOBIN 29.5 pg (28-32); MEAN CORPUSCULAR HGB CONC 28.7 g/dL (31-35); MEAN CORPUSCULAR VOLUME 102.7 fL (81-99); MONOCYTES # (AUTO) 1.1 (0.2-0.8); MONOCYTES % 10.7 % (4.4-11.3); NEUTROPHILS % 61.6 % (38.7-80.0); PLATELET COUNT 413 x10e3/uL (140-360); RED BLOOD COUNT 2.58 x10e6/uL (3.6-5.1); RED CELL DISTRIBUTION WIDTH 19.9 % (11.7-14.4)
[2021-01-01 07:10] LABS: ALBUMIN 2.3 g/dL (3.5-5.0); ALBUMIN/GLOBULIN RATIO 0.5 (0.8-2.0); ANION GAP 12.8 mmol/L (8-16); CALCIUM 9.3 mg/dL (8.4-10.2); CREATININE, SERUM 0.46 mg/dL (0.57-1.11)
[2021-01-01 07:27] LABS: POTASSIUM 2.8 mmol/L (3.5-5.1)
[2021-01-01] MEDS: PANTOPRAZOLE SODIUM 40 MG SUSPDR.PKT PO SCH (08:31)
[2021-01-01] MEDS: ENOXAPARIN INJ 80 MG/0.8 ML SYR SC SCH ×2 (08:31→21:28)
[2021-01-01] MEDS: DOCUSATE SODIUM LIQD 100 MG/10 ML UDC NG SCH ×2 (08:31→16:37)
[2021-01-01 08:58] LABS: ABG PH 7.31 (7.35-7.45)
[2021-01-01 08:59] LABS: ABG HCO3 43 mmol/L (22-26); ABG PCO2 85 mmHg (35-45); ABG PO2 71 mmHg (80-105); ABG TCO2 46
[2021-01-01] MEDS ORDERED: POTASSIUM CHLORIDE 20MEQ/100ML 200 ML IV ONE ×2 (10:30→17:00)
[2021-01-02] VITALS (22 sets, daily range): BP systolic 85–130; BP diastolic 49–66
[2021-01-02] MEDS: PROPOFOL IV EMULSION 10MG/ML 100 ML IV PRN ×4 (02:45→23:44)
[2021-01-02] MEDS: MIDAZOLAM HCL 5MG/ML 10ML VIAL 100 ML IV PRN ×4 (03:02→17:19)
[2021-01-02] MEDS: METOCLOPRAMIDE HCL 10 MG/2ML VIAL IV SCH ×3 (05:51→21:07)
[2021-01-02 06:28] LABS: BASOPHILS # (AUTO) 0.2 (0.0-0.1); BASOPHILS % 1.1 % (0.0-1.0); EOSINOPHILS % 6.8 % (0.0-6.0); HEMATOCRIT 26.8 % (34.2-44.1); HEMOGLOBIN 7.8 g/dL (12.0-16.0); LYMPHOCYTES # (AUTO) 1.6 (1.0-3.2); LYMPHOCYTES % 10.9 % (18.0-39.1); MEAN CORPUSCULAR HEMOGLOBIN 29.8 pg (28-32); MEAN CORPUSCULAR HGB CONC 29.1 g/dL (31-35); MEAN CORPUSCULAR VOLUME 102.3 fL (81-99); MONOCYTES # (AUTO) 1.3 (0.2-0.8); MONOCYTES % 8.7 % (4.4-11.3); NEUTROPHILS # (AUTO) 10.5 (2.1-6.9); NEUTROPHILS % 70.2 % (38.7-80.0); PLATELET COUNT 469 x10e3/uL (140-360); RED BLOOD COUNT 2.62 x10e6/uL (3.6-5.1); RED CELL DISTRIBUTION WIDTH 19.7 % (11.7-14.4)
[2021-01-02 06:43] LABS: ALBUMIN 2.4 g/dL (3.5-5.0); ALBUMIN/GLOBULIN RATIO 0.4 (0.8-2.0); ANION GAP 13.4 mmol/L (8-16); CALCIUM 8.9 mg/dL (8.4-10.2); CREATININE, SERUM 0.48 mg/dL (0.57-1.11)
[2021-01-02 06:56] LABS: POTASSIUM 2.4 mmol/L (3.5-5.1)
[2021-01-02] MEDS ORDERED: POTASSIUM CHLORIDE 20MEQ/100ML 200 ML IV ONE ×2 (07:15→19:00)
[2021-01-02] MEDS: FUROSEMIDE INJ 100 MG in SODIUM CHLORIDE 0.9% 100 ML 90 ML IV SCH ×3 (08:26→21:10)
[2021-01-02] MEDS: ENOXAPARIN INJ 80 MG/0.8 ML SYR SC SCH ×2 (08:27→21:07)
[2021-01-02] MEDS: PANTOPRAZOLE SODIUM 40 MG SUSPDR.PKT PO SCH (08:27)
[2021-01-02] MEDS: DOCUSATE SODIUM LIQD 100 MG/10 ML UDC NG SCH ×2 (08:27→17:09)
[2021-01-02] MEDS: FENTANYL 2000MCG/NS 250 250 ML IV SCH ×2 (08:31→17:22)
[2021-01-02 08:54] LABS: ABG HCO3 46 mmol/L (22-26); ABG PCO2 78 mmHg (35-45); ABG PH 7.38 (7.35-7.45); ABG PO2 69 mmHg (80-105); ABG TCO2 48
[2021-01-02] MEDS ORDERED: POTASSIUM CHLORIDE 20MEQ/15ML UDC NG SCH (09:00)
[2021-01-02] MEDS: KCL 20 MEQ PACKET/ ORAL SOLN NG SCH (10:00)
[2021-01-03] VITALS (30 sets, daily range): BP systolic 83–139; BP diastolic 46–62
[2021-01-03] MEDS: FENTANYL 2000MCG/NS 250 250 ML IV SCH ×4 (00:12→21:37)
[2021-01-03] MEDS: MIDAZOLAM HCL 5MG/ML 10ML VIAL 100 ML IV PRN ×6 (01:00→21:36)
[2021-01-03] MEDS: PROPOFOL IV EMULSION 10MG/ML 100 ML IV PRN ×7 (02:00→22:37)
[2021-01-03] MEDS: METOCLOPRAMIDE HCL 10 MG/2ML VIAL IV SCH ×3 (05:17→20:56)
[2021-01-03 06:32] LABS: BASOPHILS # (AUTO) 0.1 (0.0-0.1); BASOPHILS % 0.9 % (0.0-1.0); EOSINOPHILS # (AUTO) 0.9 (0.0-0.4); EOSINOPHILS % 6.9 % (0.0-6.0); HEMATOCRIT 27.2 % (34.2-44.1); HEMOGLOBIN 7.8 g/dL (12.0-16.0); LYMPHOCYTES # (AUTO) 1.2 (1.0-3.2); LYMPHOCYTES % 9.4 % (18.0-39.1); MEAN CORPUSCULAR HEMOGLOBIN 29.2 pg (28-32); MEAN CORPUSCULAR HGB CONC 28.7 g/dL (31-35); MEAN CORPUSCULAR VOLUME 101.9 fL (81-99); MONOCYTES # (AUTO) 0.9 (0.2-0.8); NEUTROPHILS # (AUTO) 9.8 (2.1-6.9); NEUTROPHILS % 73.8 % (38.7-80.0); PLATELET COUNT 491 x10e3/uL (140-360); RED BLOOD COUNT 2.67 x10e6/uL (3.6-5.1); RED CELL DISTRIBUTION WIDTH 19.9 % (11.7-14.4)
[2021-01-03] MEDS: FUROSEMIDE INJ 100 MG in SODIUM CHLORIDE 0.9% 100 ML 90 ML IV SCH (06:34)
[2021-01-03 07:03] LABS: ALBUMIN 2.3 g/dL (3.5-5.0); ALBUMIN/GLOBULIN RATIO 0.4 (0.8-2.0); ANION GAP 16.7 mmol/L (8-16); CALCIUM 8.9 mg/dL (8.4-10.2); CREATININE, SERUM 0.48 mg/dL (0.57-1.11)
[2021-01-03 07:23] LABS: POTASSIUM 2.7 mmol/L (3.5-5.1)
[2021-01-03] MEDS: POTASSIUM CHLORIDE 20MEQ/100ML 100 ML IV SCH ×2 (08:23→09:39)
[2021-01-03] MEDS: KCL 20 MEQ PACKET/ ORAL SOLN NG SCH ×2 (08:24→16:56)
[2021-01-03] MEDS: DOCUSATE SODIUM LIQD 100 MG/10 ML UDC NG SCH ×2 (08:24→16:56)
[2021-01-03] MEDS: ENOXAPARIN INJ 80 MG/0.8 ML SYR SC SCH ×2 (08:24→20:56)
[2021-01-03] MEDS: PANTOPRAZOLE SODIUM 40 MG SUSPDR.PKT PO SCH (08:24)
[2021-01-03 09:40] LABS: ABG HCO3 48 mmol/L (22-26); ABG PCO2 79 mmHg (35-45); ABG PH 7.39 (7.35-7.45); ABG PO2 58 mmHg (80-105); ABG TCO2 > 50
[2021-01-03] MEDS ORDERED: POTASSIUM CHLORIDE 20MEQ/100ML 200 ML IV ONE (19:00)
[2021-01-04] VITALS (27 sets, daily range): BP systolic 51–133; BP diastolic 50–63
[2021-01-04] MEDS: PROPOFOL IV EMULSION 10MG/ML 100 ML IV PRN ×7 (01:33→23:30)
[2021-01-04] MEDS: MIDAZOLAM HCL 5MG/ML 10ML VIAL 100 ML IV PRN ×4 (02:46→19:12)
[2021-01-04] MEDS: FUROSEMIDE INJ 100 MG in SODIUM CHLORIDE 0.9% 100 ML 90 ML IV SCH ×3 (04:14→23:31)
[2021-01-04] MEDS: FENTANYL 2000MCG/NS 250 250 ML IV SCH ×3 (04:37→18:41)
[2021-01-04] MEDS: METOCLOPRAMIDE HCL 10 MG/2ML VIAL IV SCH ×3 (05:48→23:31)
[2021-01-04 06:52] LABS: BASOPHILS # (AUTO) 0.1 (0.0-0.1); BASOPHILS % 0.9 % (0.0-1.0); EOSINOPHILS # (AUTO) 1.2 (0.0-0.4); EOSINOPHILS % 8.5 % (0.0-6.0); HEMOGLOBIN 7.7 g/dL (12.0-16.0); LYMPHOCYTES # (AUTO) 1.5 (1.0-3.2); LYMPHOCYTES % 10.8 % (18.0-39.1); MEAN CORPUSCULAR HEMOGLOBIN 29.1 pg (28-32); MEAN CORPUSCULAR HGB CONC 28.5 g/dL (31-35); MEAN CORPUSCULAR VOLUME 101.9 fL (81-99); MONOCYTES # (AUTO) 1.4 (0.2-0.8); MONOCYTES % 9.7 % (4.4-11.3); NEUTROPHILS # (AUTO) 9.6 (2.1-6.9); NEUTROPHILS % 68.4 % (38.7-80.0); PLATELET COUNT 474 x10e3/uL (140-360); RED BLOOD COUNT 2.65 x10e6/uL (3.6-5.1); RED CELL DISTRIBUTION WIDTH 19.5 % (11.7-14.4)
[2021-01-04 07:17] LABS: ALBUMIN 2.2 g/dL (3.5-5.0); ALBUMIN/GLOBULIN RATIO 0.4 (0.8-2.0); ANION GAP 15.2 mmol/L (8-16); CREATININE, SERUM 0.48 mg/dL (0.57-1.11); POTASSIUM 3.2 mmol/L (3.5-5.1)
[2021-01-04 08:39] LABS: ABG PH 7.36 (7.35-7.45)
[2021-01-04 08:40] LABS: ABG HCO3 52 mmol/L (22-26); ABG PCO2 93 mmHg (35-45); ABG PO2 70 mmHg (80-105); ABG TCO2 > 50
[2021-01-04] MEDS: DOCUSATE SODIUM LIQD 100 MG/10 ML UDC NG SCH ×2 (09:00→18:41)
[2021-01-04] MEDS: ENOXAPARIN INJ 80 MG/0.8 ML SYR SC SCH ×2 (10:06→23:30)
[2021-01-04] MEDS: PANTOPRAZOLE SODIUM 40 MG SUSPDR.PKT PO SCH (10:06)
[2021-01-04] MEDS: KCL 20 MEQ PACKET/ ORAL SOLN NG SCH ×2 (10:06→18:42)
[2021-01-04] MEDS ORDERED: POTASSIUM CHLORIDE 20MEQ/100ML 200 ML IV ONE (11:30)
[2021-01-05] VITALS (30 sets, daily range): BP systolic 76–152; BP diastolic 52–70
[2021-01-05] MEDS: PROPOFOL IV EMULSION 10MG/ML 100 ML IV PRN ×9 (00:22→23:49)
[2021-01-05] MEDS: MIDAZOLAM HCL 5MG/ML 10ML VIAL 100 ML IV PRN ×5 (00:23→21:58)
[2021-01-05 05:02] LABS: BASOPHILS # (AUTO) 0.1 (0.0-0.1); BASOPHILS % 0.6 % (0.0-1.0); EOSINOPHILS # (AUTO) 1.3 (0.0-0.4); EOSINOPHILS % 9.1 % (0.0-6.0); HEMATOCRIT 27.3 % (34.2-44.1); HEMOGLOBIN 7.5 g/dL (12.0-16.0); LYMPHOCYTES # (AUTO) 1.3 (1.0-3.2); LYMPHOCYTES % 9.4 % (18.0-39.1); MEAN CORPUSCULAR HEMOGLOBIN 28.3 pg (28-32); MEAN CORPUSCULAR HGB CONC 27.5 g/dL (31-35); MONOCYTES # (AUTO) 1.3 (0.2-0.8); MONOCYTES % 9.2 % (4.4-11.3); NEUTROPHILS # (AUTO) 9.9 (2.1-6.9); NEUTROPHILS % 69.9 % (38.7-80.0); PLATELET COUNT 406 x10e3/uL (140-360); RED BLOOD COUNT 2.65 x10e6/uL (3.6-5.1)
[2021-01-05 05:24] LABS: ALBUMIN 2.3 g/dL (3.5-5.0); ALBUMIN/GLOBULIN RATIO 0.4 (0.8-2.0); ANION GAP 13.4 mmol/L (8-16); CALCIUM 9.2 mg/dL (8.4-10.2); CREATININE, SERUM 0.45 mg/dL (0.57-1.11); POTASSIUM 3.4 mmol/L (3.5-5.1)
[2021-01-05] MEDS: FUROSEMIDE INJ 100 MG in SODIUM CHLORIDE 0.9% 100 ML 90 ML IV SCH ×2 (06:10→08:34)
[2021-01-05] MEDS: METOCLOPRAMIDE HCL 10 MG/2ML VIAL IV SCH ×3 (06:10→22:17)
[2021-01-05] MEDS: DOCUSATE SODIUM LIQD 100 MG/10 ML UDC NG SCH ×2 (07:59→18:22)
[2021-01-05] MEDS: KCL 20 MEQ PACKET/ ORAL SOLN NG SCH ×2 (07:59→18:22)
[2021-01-05] MEDS: ENOXAPARIN INJ 80 MG/0.8 ML SYR SC SCH ×2 (07:59→22:16)
[2021-01-05] MEDS: PANTOPRAZOLE SODIUM 40 MG SUSPDR.PKT PO SCH (07:59)
[2021-01-05] MEDS: FENTANYL 2000MCG/NS 250 250 ML IV SCH ×3 (08:01→21:57)
[2021-01-05 08:21] LABS: BAND NEUTROPHILS % (MANUAL) 2 %; EOSINOPHILS % (MANUAL) 11 % (0-7); LYMPHOCYTES % (MANUAL) 7 % (19-48); MONOCYTES % (MANUAL) 1 % (3.4-9.0); MYELOCYTES % (MANUAL) 1 % (0-0); NEUTROPHILS % (MANUAL) 77 % (40-74); NUCLEATED RED BLOOD CELLS 1
[2021-01-05 08:22] LABS: ANISOCYTOSIS MODERATE; PLATELET ESTIMATE ADEQUATE; PLATELET MORPHOLOGY COMMENT FEW LARGE; POLYCHROMASIA FEW; RBC MORPHOLOGY COMMENT ABNORMAL
[2021-01-05 08:59] LABS: ABG PH 7.39 (7.35-7.45)
[2021-01-05 09:00] LABS: ABG HCO3 53 mmol/L (22-26); ABG PCO2 86 mmHg (35-45); ABG PO2 59 mmHg (80-105); ABG TCO2 > 50
[2021-01-05] MEDS: ALBUMIN 25% 25GM 100ML 100 ML IV SCH ×2 (13:58→22:17)
[2021-01-05] MEDS ORDERED: ALBUMIN 25% 25GM 100ML 0.25 GM/ML BTL IV SCH (14:00)
[2021-01-05] MEDS ORDERED: POTASSIUM CHLORIDE 20MEQ/100ML 200 ML IV ONE (14:00)
[2021-01-06] VITALS (29 sets, daily range): BP systolic 88–134; BP diastolic 53–70
[2021-01-06] MEDS: FUROSEMIDE INJ 100 MG in SODIUM CHLORIDE 0.9% 100 ML 90 ML IV SCH ×3 (01:07→21:11)
[2021-01-06] MEDS: PROPOFOL IV EMULSION 10MG/ML 100 ML IV PRN ×7 (03:45→18:47)
[2021-01-06] MEDS: MIDAZOLAM HCL 5MG/ML 10ML VIAL 100 ML IV PRN ×5 (03:46→23:18)
[2021-01-06] MEDS: FENTANYL 2000MCG/NS 250 250 ML IV SCH ×3 (04:42→18:47)
[2021-01-06] MEDS: ALBUMIN 25% 25GM 100ML 100 ML IV SCH (06:18)
[2021-01-06] MEDS: METOCLOPRAMIDE HCL 10 MG/2ML VIAL IV SCH ×3 (06:18→21:12)
[2021-01-06 06:58] LABS: ALBUMIN 2.8 g/dL (3.5-5.0); ALBUMIN/GLOBULIN RATIO 0.6 (0.8-2.0); ANION GAP 15.1 mmol/L (8-16); CALCIUM 9.4 mg/dL (8.4-10.2); CREATININE, SERUM 0.44 mg/dL (0.57-1.11); POTASSIUM 3.1 mmol/L (3.5-5.1)
[2021-01-06 07:00] LABS: BASOPHILS # (AUTO) 0.1 (0.0-0.1); BASOPHILS % 0.7 % (0.0-1.0); EOSINOPHILS # (AUTO) 1.2 (0.0-0.4); EOSINOPHILS % 11.4 % (0.0-6.0); HEMATOCRIT 23.7 % (34.2-44.1); LYMPHOCYTES # (AUTO) 1.3 (1.0-3.2); LYMPHOCYTES % 12.2 % (18.0-39.1); MEAN CORPUSCULAR HEMOGLOBIN 28.6 pg (28-32); MEAN CORPUSCULAR HGB CONC 28.3 g/dL (31-35); MEAN CORPUSCULAR VOLUME 101.3 fL (81-99); MONOCYTES # (AUTO) 0.9 (0.2-0.8); MONOCYTES % 8.5 % (4.4-11.3); NEUTROPHILS % 65.9 % (38.7-80.0); PLATELET COUNT 394 x10e3/uL (140-360); RED BLOOD COUNT 2.34 x10e6/uL (3.6-5.1); RED CELL DISTRIBUTION WIDTH 18.7 % (11.7-14.4)
[2021-01-06 07:06] LABS: ABG HCO3 50 mmol/L (22-26); ABG PCO2 87 mmHg (35-45); ABG PH 7.36 (7.35-7.45); ABG PO2 72 mmHg (80-105); ABG TCO2 50
[2021-01-06 07:07] LABS: HEMOGLOBIN 6.7 g/dL (12.0-16.0)
[2021-01-06 07:36] LABS: BASOPHILS # (AUTO) 0.1 (0.0-0.1); BASOPHILS % 0.7 % (0.0-1.0); EOSINOPHILS # (AUTO) 1.3 (0.0-0.4); EOSINOPHILS % 11.7 % (0.0-6.0); HEMATOCRIT 24.6 % (34.2-44.1); LYMPHOCYTES # (AUTO) 1.6 (1.0-3.2); LYMPHOCYTES % 14.8 % (18.0-39.1); MEAN CORPUSCULAR HEMOGLOBIN 28.5 pg (28-32); MEAN CORPUSCULAR HGB CONC 27.6 g/dL (31-35); MEAN CORPUSCULAR VOLUME 102.9 fL (81-99); MONOCYTES % 9.1 % (4.4-11.3); NEUTROPHILS # (AUTO) 6.7 (2.1-6.9); NEUTROPHILS % 62.6 % (38.7-80.0); PLATELET COUNT 376 x10e3/uL (140-360); RED BLOOD COUNT 2.39 x10e6/uL (3.6-5.1); RED CELL DISTRIBUTION WIDTH 18.7 % (11.7-14.4)
[2021-01-06 07:41] LABS: HEMOGLOBIN 6.8 g/dL (12.0-16.0)
[2021-01-06 08:03] LABS: PLATELET ESTIMATE ADEQUATE; PLATELET MORPHOLOGY COMMENT FEW LARGE; POLYCHROMASIA FEW; RBC MORPHOLOGY COMMENT NORMAL
[2021-01-06] MEDS: ENOXAPARIN INJ 80 MG/0.8 ML SYR SC SCH ×2 (08:14→20:31)
[2021-01-06] MEDS: DOCUSATE SODIUM LIQD 100 MG/10 ML UDC NG SCH ×2 (08:14→17:00)
[2021-01-06] MEDS: KCL 20 MEQ PACKET/ ORAL SOLN NG SCH ×2 (08:15→17:00)
[2021-01-06] MEDS: PANTOPRAZOLE SODIUM 40 MG SUSPDR.PKT PO SCH (08:15)
[2021-01-06] MEDS ORDERED: ACETAMINOPHEN 325 MG TAB PO STA (09:17)
[2021-01-06] MEDS ORDERED: SODIUM CHLORIDE 0.9% 250ML 250 ML IV NR (09:30)
[2021-01-06] MEDS ORDERED: POTASSIUM CHLORIDE 20MEQ/100ML 200 ML IV ONE (09:30)
[2021-01-06] MEDS: ACETAZOLAMIDE SODIUM 500 MG/VIAL IV SCH ×2 (10:00→20:31)
[2021-01-06] MEDS ORDERED: ROCURONIUM 1250MG/NS 250 250 ML ONE (11:27)
[2021-01-06] MEDS: ALBUMIN 25% 12.5GM 0.25 GM/ML BTL IV SCH ×2 (13:28→21:11)
[2021-01-06 21:44] LABS: BASOPHILS # (AUTO) 0.1 (0.0-0.1); BASOPHILS % 0.5 % (0.0-1.0); EOSINOPHILS # (AUTO) 0.7 (0.0-0.4); EOSINOPHILS % 4.9 % (0.0-6.0); HEMATOCRIT 27.8 % (34.2-44.1); HEMOGLOBIN 7.8 g/dL (12.0-16.0); LYMPHOCYTES # (AUTO) 1.1 (1.0-3.2); LYMPHOCYTES % 7.5 % (18.0-39.1); MEAN CORPUSCULAR HEMOGLOBIN 29.5 pg (28-32); MEAN CORPUSCULAR HGB CONC 28.1 g/dL (31-35); MEAN CORPUSCULAR VOLUME 105.3 fL (81-99); MONOCYTES # (AUTO) 1.3 (0.2-0.8); MONOCYTES % 9.2 % (4.4-11.3); NEUTROPHILS # (AUTO) 10.8 (2.1-6.9); NEUTROPHILS % 75.9 % (38.7-80.0); PLATELET COUNT 327 x10e3/uL (140-360); RED BLOOD COUNT 2.64 x10e6/uL (3.6-5.1); RED CELL DISTRIBUTION WIDTH 19.1 % (11.7-14.4)
[2021-01-07] VITALS (29 sets, daily range): BP systolic 62–139; BP diastolic 34–73
[2021-01-07] MEDS: PROPOFOL IV EMULSION 10MG/ML 100 ML IV PRN ×8 (01:29→21:26)
[2021-01-07] MEDS: FENTANYL 2000MCG/NS 250 250 ML IV SCH ×4 (01:33→23:20)
[2021-01-07] MEDS ORDERED: SODIUM BICARBONATE 8.4% INJ 50 ML SYR IV STA (03:43)
[2021-01-07] MEDS: NOREPINEPHRINE 8 MG/D5W 250 ML 250 ML IV PRN ×3 (04:03→21:26)
[2021-01-07 04:26] LABS: ABG PCO2 126 mmHg (35-45); ABG PH 7.12 (7.35-7.45)
[2021-01-07 04:27] LABS: ABG HCO3 41 mmol/L (22-26); ABG PO2 41 mmHg (80-105); ABG TCO2 45
[2021-01-07] MEDS: ALBUMIN 25% 12.5GM 0.25 GM/ML BTL IV SCH ×3 (05:30→21:26)
[2021-01-07] MEDS: METOCLOPRAMIDE HCL 10 MG/2ML VIAL IV SCH ×3 (05:30→21:26)
[2021-01-07] MEDS: MIDAZOLAM HCL 5MG/ML 10ML VIAL 100 ML IV PRN ×4 (05:32→21:27)
[2021-01-07 06:11] LABS: BASOPHILS # (AUTO) 0.1 (0.0-0.1); BASOPHILS % 0.6 % (0.0-1.0); EOSINOPHILS # (AUTO) 0.3 (0.0-0.4); EOSINOPHILS % 1.5 % (0.0-6.0); HEMATOCRIT 29.3 % (34.2-44.1); HEMOGLOBIN 8.2 g/dL (12.0-16.0); LYMPHOCYTES # (AUTO) 1.3 (1.0-3.2); LYMPHOCYTES % 6.8 % (18.0-39.1); MEAN CORPUSCULAR HEMOGLOBIN 29.8 pg (28-32); MEAN CORPUSCULAR VOLUME 106.5 fL (81-99); MONOCYTES # (AUTO) 1.5 (0.2-0.8); NEUTROPHILS # (AUTO) 14.7 (2.1-6.9); NEUTROPHILS % 76.5 % (38.7-80.0); PLATELET COUNT 414 x10e3/uL (140-360); RED BLOOD COUNT 2.75 x10e6/uL (3.6-5.1); RED CELL DISTRIBUTION WIDTH 18.6 % (11.7-14.4)
[2021-01-07 06:43] LABS: ALBUMIN 3.7 g/dL (3.5-5.0); ALBUMIN/GLOBULIN RATIO 0.8 (0.8-2.0); ANION GAP 19.5 mmol/L (8-16); CALCIUM 9.7 mg/dL (8.4-10.2); CREATININE, SERUM 0.72 mg/dL (0.57-1.11)
[2021-01-07 06:56] LABS: POTASSIUM 5.5 mmol/L (3.5-5.1)
[2021-01-07] MEDS: KCL 20 MEQ PACKET/ ORAL SOLN NG SCH ×2 (08:33→12:09)
[2021-01-07] MEDS: FUROSEMIDE INJ 100 MG in SODIUM CHLORIDE 0.9% 100 ML 90 ML IV SCH ×3 (08:33→21:26)
[2021-01-07] MEDS: ENOXAPARIN INJ 80 MG/0.8 ML SYR SC SCH ×2 (08:34→21:26)
[2021-01-07] MEDS: PANTOPRAZOLE SODIUM 40 MG SUSPDR.PKT PO SCH (08:34)
[2021-01-07 08:39] LABS: ABG PH 7.14 (7.35-7.45)
[2021-01-07 08:40] LABS: ABG PCO2 > 130 mmHg (35-45)
[2021-01-07 08:41] LABS: ABG PO2 49 mmHg (80-105)
[2021-01-07] MEDS: DOCUSATE SODIUM LIQD 100 MG/10 ML UDC NG SCH ×2 (09:00→17:00)
[2021-01-07 09:25] LABS: ABG HCO3 43 mmol/L (22-26); ABG PCO2 114 mmHg (35-45); ABG PH 7.19 (7.35-7.45); ABG PO2 53 mmHg (80-105); ABG TCO2 47
[2021-01-07] MEDS: LINEZOLID 600 MG/D5W 300ML 300 ML IV SCH ×2 (09:52→21:26)
[2021-01-07] MEDS: ROCURONIUM 1250MG/NS 250 250 ML IV PRN ×2 (09:54→23:20)
[2021-01-07] MEDS ORDERED: MICAFUNGIN SODIUM 100 MG in MICAFUNGIN SODIUM 100 ML IV SCH (10:30)
[2021-01-07 13:33] LABS: ABG HCO3 43 mmol/L (22-26); ABG PCO2 109 mmHg (35-45); ABG PO2 56 mmHg (80-105); ABG TCO2 46
[2021-01-07] MEDS: MEROPENEM 1 GM in SODIUM CHLORIDE 0.9% 100 ML IV SCH ×2 (14:43→21:26)
[2021-01-07] MEDS ORDERED: SOD POLYSTYRENE SULFONATE SUSP 15 GM/60 ML BTL PO ONE (17:15)
[2021-01-08] VITALS (31 sets, daily range): BP systolic 94–165; BP diastolic 41–85
[2021-01-08] MEDS: PROPOFOL IV EMULSION 10MG/ML 100 ML IV PRN ×8 (02:41→23:05)
[2021-01-08] MEDS: MIDAZOLAM HCL 5MG/ML 10ML VIAL 100 ML IV PRN ×5 (02:42→23:06)
[2021-01-08] MEDS: FUROSEMIDE INJ 100 MG in SODIUM CHLORIDE 0.9% 100 ML 90 ML IV SCH ×5 (03:23→23:40)
[2021-01-08] MEDS: ALBUMIN 25% 12.5GM 0.25 GM/ML BTL IV SCH ×2 (05:38→14:17)
[2021-01-08] MEDS: MEROPENEM 1 GM in SODIUM CHLORIDE 0.9% 100 ML IV SCH ×3 (05:38→21:11)
[2021-01-08] MEDS: FENTANYL 2000MCG/NS 250 250 ML IV SCH ×3 (05:42→18:34)
[2021-01-08 06:27] LABS: BASOPHILS # (AUTO) 0.2 (0.0-0.1); BASOPHILS % 0.5 % (0.0-1.0); EOSINOPHILS # (AUTO) 0.1 (0.0-0.4); EOSINOPHILS % 0.2 % (0.0-6.0); HEMATOCRIT 27.3 % (34.2-44.1); HEMOGLOBIN 8.1 g/dL (12.0-16.0); LYMPHOCYTES # (AUTO) 1.5 (1.0-3.2); LYMPHOCYTES % 4.9 % (18.0-39.1); MEAN CORPUSCULAR HEMOGLOBIN 30.5 pg (28-32); MEAN CORPUSCULAR HGB CONC 29.7 g/dL (31-35); MEAN CORPUSCULAR VOLUME 102.6 fL (81-99); MONOCYTES # (AUTO) 2.4 (0.2-0.8); NEUTROPHILS # (AUTO) 22.3 (2.1-6.9); NEUTROPHILS % 75.1 % (38.7-80.0); PLATELET COUNT 316 x10e3/uL (140-360); RED BLOOD COUNT 2.66 x10e6/uL (3.6-5.1); RED CELL DISTRIBUTION WIDTH 17.7 % (11.7-14.4)
[2021-01-08 06:46] LABS: ALBUMIN 3.9 g/dL (3.5-5.0); ALBUMIN/GLOBULIN RATIO 0.8 (0.8-2.0); ANION GAP 21.1 mmol/L (8-16); CREATININE, SERUM 0.99 mg/dL (0.57-1.11); POTASSIUM 5.1 mmol/L (3.5-5.1)
[2021-01-08 07:33] LABS: BAND NEUTROPHILS % (MANUAL) 16 %; LYMPHOCYTES % (MANUAL) 8 % (19-48); METAMYELOCYTES % (MANUAL) 2 % (0-0); MONOCYTES % (MANUAL) 3 % (3.4-9.0); MYELOCYTES % (MANUAL) 5 % (0-0); NEUTROPHILS % (MANUAL) 66 % (40-74); NUCLEATED RED BLOOD CELLS 2; PLATELET ESTIMATE ADEQUATE
[2021-01-08 07:34] LABS: PLATELET MORPHOLOGY COMMENT NORMAL; RBC MORPHOLOGY COMMENT NORMAL
[2021-01-08 08:07] LABS: ABG HCO3 33 mmol/L (22-26); ABG PCO2 95 mmHg (35-45); ABG PH 7.15 (7.35-7.45); ABG PO2 48 mmHg (80-105); ABG TCO2 36
[2021-01-08] MEDS: PANTOPRAZOLE SODIUM 40 MG SUSPDR.PKT PO SCH (09:00)
[2021-01-08] MEDS: KCL 20 MEQ PACKET/ ORAL SOLN NG SCH (09:00)
[2021-01-08] MEDS: NOREPINEPHRINE 8 MG/D5W 250 ML 250 ML IV PRN ×7 (09:49→23:11)
[2021-01-08] MEDS: LINEZOLID 600 MG/D5W 300ML 300 ML IV SCH ×2 (09:56→21:11)
[2021-01-08] MEDS: ENOXAPARIN INJ 80 MG/0.8 ML SYR SC SCH ×2 (09:56→21:11)
[2021-01-08] MEDS: DOCUSATE SODIUM LIQD 100 MG/10 ML UDC NG SCH ×2 (09:56→18:00)
[2021-01-08] MEDS: MICAFUNGIN SODIUM 100 ML IV SCH (10:30)
[2021-01-08] MEDS ORDERED: HEPARIN SOD (PORCINE) 1000 UNIT/ML SDV ONE (16:54)
[2021-01-08] MEDS: LACTULOSE SYRUP 20 GM/30 ML UDC PO PRN ×2 (18:02→23:11)
[2021-01-08] MEDS: METOCLOPRAMIDE HCL 10 MG/2ML VIAL IV SCH (21:17)
[2021-01-08] MEDS: VASOPRESSIN 60 UNIT in DEXTROSE 5% 50ML 57 ML IV PRN ×2 (23:40→23:57)
[2021-01-09] VITALS (29 sets, daily range): BP systolic 91–144; BP diastolic 49–67
[2021-01-09] MEDS: PROPOFOL IV EMULSION 10MG/ML 100 ML IV PRN ×5 (01:18→21:18)
[2021-01-09] MEDS: NOREPINEPHRINE 8 MG/D5W 250 ML 250 ML IV PRN ×4 (03:29→06:32)
[2021-01-09] MEDS: MIDAZOLAM HCL 5MG/ML 10ML VIAL 100 ML IV PRN ×4 (04:17→20:28)
[2021-01-09] MEDS: ROCURONIUM 1250MG/NS 250 250 ML IV PRN (04:17)
[2021-01-09] MEDS: METOCLOPRAMIDE HCL 10 MG/2ML VIAL IV SCH ×3 (05:06→21:26)
[2021-01-09] MEDS: MEROPENEM 1 GM in SODIUM CHLORIDE 0.9% 100 ML IV SCH ×3 (05:06→21:26)
[2021-01-09 06:24] LABS: BASOPHILS # (AUTO) 0.2 (0.0-0.1); BASOPHILS % 0.4 % (0.0-1.0); EOSINOPHILS # (AUTO) 0.1 (0.0-0.4); EOSINOPHILS % 0.3 % (0.0-6.0); HEMATOCRIT 24.2 % (34.2-44.1); HEMOGLOBIN 8.3 g/dL (12.0-16.0); LYMPHOCYTES # (AUTO) 1.5 (1.0-3.2); LYMPHOCYTES % 4.5 % (18.0-39.1); MEAN CORPUSCULAR HEMOGLOBIN 33.3 pg (28-32); MEAN CORPUSCULAR HGB CONC 34.3 g/dL (31-35); MEAN CORPUSCULAR VOLUME 97.2 fL (81-99); MONOCYTES # (AUTO) 1.8 (0.2-0.8); MONOCYTES % 5.3 % (4.4-11.3); NEUTROPHILS # (AUTO) 26.1 (2.1-6.9); NEUTROPHILS % 77.6 % (38.7-80.0); PLATELET COUNT 170 x10e3/uL (140-360); RED BLOOD COUNT 2.49 x10e6/uL (3.6-5.1); RED CELL DISTRIBUTION WIDTH 16.9 % (11.7-14.4)
[2021-01-09 06:49] LABS: ALBUMIN 3.5 g/dL (3.5-5.0); ALBUMIN/GLOBULIN RATIO 0.7 (0.8-2.0); ANION GAP 19.7 mmol/L (8-16); CALCIUM 8.5 mg/dL (8.4-10.2); CREATININE, SERUM 0.99 mg/dL (0.57-1.11); POTASSIUM 3.7 mmol/L (3.5-5.1)
[2021-01-09 07:53] LABS: BAND NEUTROPHILS % (MANUAL) 8 %; LYMPHOCYTES % (MANUAL) 5 % (19-48); METAMYELOCYTES % (MANUAL) 4 % (0-0); MONOCYTES % (MANUAL) 2 % (3.4-9.0); MYELOCYTES % (MANUAL) 7 % (0-0); NEUTROPHILS % (MANUAL) 73 % (40-74); NUCLEATED RED BLOOD CELLS 8; PLATELET ESTIMATE ADEQUATE; PROMYELOCYTES % (MANUAL) 1 % (0-0)
[2021-01-09 07:54] LABS: PLATELET MORPHOLOGY COMMENT NORMAL; RBC MORPHOLOGY COMMENT NORMAL
[2021-01-09 08:30] LABS: ABG PCO2 87 mmHg (35-45); ABG PH 7.23 (7.35-7.45); ABG PO2 67 mmHg (80-105)
[2021-01-09 08:31] LABS: ABG HCO3 36 mmol/L (22-26); ABG TCO2 39
[2021-01-09] MEDS: MICAFUNGIN SODIUM 100 ML IV SCH (10:15)
[2021-01-09] MEDS: ENOXAPARIN INJ 80 MG/0.8 ML SYR SC SCH ×2 (10:15→21:26)
[2021-01-09] MEDS: LINEZOLID 600 MG/D5W 300ML 300 ML IV SCH ×2 (10:15→21:26)
[2021-01-09] MEDS: PANTOPRAZOLE SODIUM 40 MG SUSPDR.PKT PO SCH (10:15)
[2021-01-09] MEDS: DOCUSATE SODIUM LIQD 100 MG/10 ML UDC NG SCH ×2 (10:15→16:59)
[2021-01-09] MEDS: FENTANYL 2000MCG/NS 250 250 ML IV SCH ×2 (10:47→16:26)
[2021-01-09] MEDS ORDERED: SODIUM CHLORIDE 0.9% 100 ML ONE (13:49)
[2021-01-09] MEDS: VASOPRESSIN 60 UNIT in DEXTROSE 5% 50ML 57 ML IV PRN (23:45)
[2021-01-10] VITALS (28 sets, daily range): BP systolic 80–108; BP diastolic 43–59
[2021-01-10] MEDS: FENTANYL 2000MCG/NS 250 250 ML IV SCH ×2 (00:23→07:05)
[2021-01-10] MEDS: FUROSEMIDE INJ 100 MG in SODIUM CHLORIDE 0.9% 100 ML 90 ML IV SCH ×2 (02:01→11:39)
[2021-01-10] MEDS: ROCURONIUM 1250MG/NS 250 250 ML IV PRN (02:02)
[2021-01-10] MEDS: MIDAZOLAM HCL 5MG/ML 10ML VIAL 100 ML IV PRN ×3 (02:02→16:38)
[2021-01-10] MEDS: NOREPINEPHRINE 8 MG/D5W 250 ML 250 ML IV PRN ×4 (02:09→16:40)
[2021-01-10] MEDS: PROPOFOL IV EMULSION 10MG/ML 100 ML IV PRN ×3 (04:26→16:43)
[2021-01-10] MEDS: METOCLOPRAMIDE HCL 10 MG/2ML VIAL IV SCH ×2 (05:00→14:00)
[2021-01-10] MEDS: MEROPENEM 1 GM in SODIUM CHLORIDE 0.9% 100 ML IV SCH ×2 (05:00→14:00)
[2021-01-10] MEDS: VASOPRESSIN 60 UNIT in DEXTROSE 5% 50ML 57 ML IV PRN ×2 (06:24→12:13)
[2021-01-10 06:42] LABS: BASOPHILS # (AUTO) 0.3 (0.0-0.1); BASOPHILS % 0.7 % (0.0-1.0); EOSINOPHILS # (AUTO) 0.3 (0.0-0.4); EOSINOPHILS % 0.7 % (0.0-6.0); HEMOGLOBIN 8.8 g/dL (12.0-16.0); LYMPHOCYTES # (AUTO) 1.6 (1.0-3.2); LYMPHOCYTES % 3.6 % (18.0-39.1); MEAN CORPUSCULAR HEMOGLOBIN 32.2 pg (28-32); MEAN CORPUSCULAR HGB CONC 33.8 g/dL (31-35); MEAN CORPUSCULAR VOLUME 95.2 fL (81-99); MONOCYTES # (AUTO) 2.5 (0.2-0.8); MONOCYTES % 5.8 % (4.4-11.3); NEUTROPHILS % 75.8 % (38.7-80.0); PLATELET COUNT 160 x10e3/uL (140-360); RED BLOOD COUNT 2.73 x10e6/uL (3.6-5.1); RED CELL DISTRIBUTION WIDTH 16.9 % (11.7-14.4)
[2021-01-10 07:12] LABS: ALBUMIN 3.3 g/dL (3.5-5.0); ALBUMIN/GLOBULIN RATIO 0.6 (0.8-2.0); ANION GAP 20.9 mmol/L (8-16); CALCIUM 8.3 mg/dL (8.4-10.2); CREATININE, SERUM 0.95 mg/dL (0.57-1.11); POTASSIUM 3.9 mmol/L (3.5-5.1)
[2021-01-10 08:08] LABS: BAND NEUTROPHILS % (MANUAL) 5 %; EOSINOPHILS % (MANUAL) 1 % (0-7); LYMPHOCYTES % (MANUAL) 2 % (19-48); METAMYELOCYTES % (MANUAL) 3 % (0-0); MONOCYTES % (MANUAL) 3 % (3.4-9.0); MYELOCYTES % (MANUAL) 12 % (0-0); NEUTROPHILS % (MANUAL) 71 % (40-74); NUCLEATED RED BLOOD CELLS 9; PLATELET ESTIMATE ADEQUATE; PROMYELOCYTES % (MANUAL) 2 % (0-0)
[2021-01-10 08:09] LABS: ANISOCYTOSIS SLIGHT; PLATELET MORPHOLOGY COMMENT FEW LARGE; POLYCHROMASIA FEW; RBC MORPHOLOGY COMMENT NORMAL
[2021-01-10] MEDS: PANTOPRAZOLE SODIUM 40 MG SUSPDR.PKT PO SCH (08:40)
[2021-01-10] MEDS: DOCUSATE SODIUM LIQD 100 MG/10 ML UDC NG SCH ×2 (08:40→16:36)
[2021-01-10] MEDS: LINEZOLID 600 MG/D5W 300ML 300 ML IV SCH (08:40)
[2021-01-10] MEDS: ENOXAPARIN INJ 80 MG/0.8 ML SYR SC SCH (08:40)
[2021-01-10 09:09] LABS: ABG HCO3 32 mmol/L (22-26); ABG PCO2 95 mmHg (35-45); ABG PH 7.13 (7.35-7.45); ABG PO2 81 mmHg (80-105); ABG TCO2 35
[2021-01-10] MEDS: MICAFUNGIN SODIUM 100 ML IV SCH (10:32)
[2021-01-10 13:52] LABS: ABG PH 7.15 (7.35-7.45)
[2021-01-10 13:53] LABS: ABG HCO3 28 mmol/L (22-26); ABG PCO2 82 mmHg (35-45); ABG PO2 78 mmHg (80-105); ABG TCO2 31
[2021-01-10] MEDS ORDERED: ALBUMIN 25% 25GM 100ML 0.25 GM/ML BTL IV ONE (20:30)
[2021-01-10] MEDS ORDERED: SODIUM BICARBONATE 8.4% SYRING 150 ML ONE (21:49)
[2021-01-10] MEDS ORDERED: PHENYLEPHRINE HCL IN 0.9% NACL 250 ML IV ONE (22:05)
== END 2021-01-11 03:03 | disposition expired | DRG 207 ==
LOC: ER 10:07 → ERHOLD 11:40 → IMCU 13:31 → ICU 11-23 09:39 → COVIDICU 12-04 17:29
PROC: 3E0333Z Introduction of Anti-inflammatory into Peripheral Vein, Percutaneous Approach (ICD-10-PCS; 2020-11-20)
PROC: XW033E5 Introduction of Remdesivir Anti-infective into Peripheral Vein, Percutaneous Approach, New Technology Group 5 (ICD-10-PCS; 2020-11-20)
PROC: 02HV33Z Insertion of Infusion Device into Superior Vena Cava, Percutaneous Approach (ICD-10-PCS; 2020-11-22)
PROC: 0BH17EZ Insertion of Endotracheal Airway into Trachea, Via Natural or Artificial Opening (ICD-10-PCS; principal; 2020-11-29)
PROC: 5A1955Z Respiratory Ventilation, Greater than 96 Consecutive Hours (ICD-10-PCS; 2020-11-29)
PROC: 03HB33Z Insertion of Infusion Device into Right Radial Artery, Percutaneous Approach (ICD-10-PCS; 2020-11-29)
PROC: 3E043XZ Introduction of Vasopressor into Central Vein, Percutaneous Approach (ICD-10-PCS; 2020-11-29)
PROC: 02HV33Z Insertion of Infusion Device into Superior Vena Cava, Percutaneous Approach (ICD-10-PCS; 2020-11-30)
PROC: B548ZZA Ultrasonography of Superior Vena Cava, Guidance (ICD-10-PCS; 2020-11-30)
PROC: 02PYX3Z Removal of Infusion Device from Great Vessel, External Approach (ICD-10-PCS; 2020-11-30)
PROC: 02HV33Z Insertion of Infusion Device into Superior Vena Cava, Percutaneous Approach (ICD-10-PCS; 2020-12-16)
PROC: B548ZZA Ultrasonography of Superior Vena Cava, Guidance (ICD-10-PCS; 2020-12-16)
PROC: 02HV33Z Insertion of Infusion Device into Superior Vena Cava, Percutaneous Approach (ICD-10-PCS; 2020-12-21)
PROC: B548ZZA Ultrasonography of Superior Vena Cava, Guidance (ICD-10-PCS; 2020-12-21)
PROC: 30233N1 Transfusion of Nonautologous Red Blood Cells into Peripheral Vein, Percutaneous Approach (ICD-10-PCS; 2021-01-06)
PROC: 02HV33Z Insertion of Infusion Device into Superior Vena Cava, Percutaneous Approach (ICD-10-PCS; 2021-01-08)
PROC: B548ZZA Ultrasonography of Superior Vena Cava, Guidance (ICD-10-PCS; 2021-01-08)
PROC: 5A12012 Performance of Cardiac Output, Single, Manual (ICD-10-PCS; 2021-01-10)
PROC: 5A2204Z Restoration of Cardiac Rhythm, Single (ICD-10-PCS; 2021-01-10)
DX: U07.1 COVID-19 (principal); J12.82 Pneumonia due to coronavirus disease 2019; J96.01 Acute respiratory failure with hypoxia; A41.89 Other specified sepsis; J15.9 Unspecified bacterial pneumonia; R65.21 Severe sepsis with septic shock; E87.2 Acidosis; E87.1 Hypo-osmolality and hyponatremia; E87.0 Hyperosmolality and hypernatremia; T82.898A Other specified complication of vascular prosthetic devices, implants and grafts, initial encounter; I82.611 Acute embolism and thrombosis of superficial veins of right upper extremity; I82.622 Acute embolism and thrombosis of deep veins of left upper extremity; E87.6 Hypokalemia; E78.5 Hyperlipidemia, unspecified; E66.9 Obesity, unspecified; Z68.31 Body mass index [BMI] 31.0-31.9, adult; I11.9 Hypertensive heart disease without heart failure; D50.0 Iron deficiency anemia secondary to blood loss (chronic); B02.9 Zoster without complications; E87.70 Fluid overload, unspecified; D64.9 Anemia, unspecified; I49.5 Sick sinus syndrome
CPT/HCPCS: 36415; 36569; 36600; 71045; 74018; 80053; 80202; 81001; 82728; 82805; 82948; 83735; 85025; 85379; 85651; 86140; 86677; 86704; 86705; 86706; 86850; 86900; 86920; 87040; 87070; 87186; 87205; 87350; 90962; 93005; 93970; 94002; 94003; 94660; 99285; J0330; J0456; J0696; J1100; J1450; J1644; J1650; J1940; J2020; J2185; J2248; J2250; J2405; J2543; J2765; J2997; J3370; J3480; J7030; J7050; J7121; P9016; P9047; U0002